=== PATIENT | female | born 1945 | race Caucasian/White ===

== ENCOUNTER 2019-09-21 11:55 | Inpatient (IN) | payer MEDICARE, BC, SELFPAY ==
[2019-09-21] VITALS (18 sets, daily range): BP systolic 110–147; BP diastolic 44–72; PULSE 80–86; RESP 14–25; TEMP 36.3–37.6; O2SAT 96–100; BMI 23.1
[2019-09-21 12:31] LABS: Basophils Percent Auto 0.2 % (0.2-1.2); Eosinophils Absolute Auto 0.2 K/mm3 (0-0.3); Eosinophils Percent Auto 3.1 % (0-4.4); Immature Granulocyte Absolute 0.03 K/mm3 (0.00-0.031); Immature Granulocyte Percent A 0.5 % (0-0.5); Lymphocytes Absolute Auto 0.88 K/mm3 (0.9-3.2); Lymphocytes Percent Auto 15.3 % (18.3-44.2); Mean Corpuscular Hemoglobin 31.6 pg (26-34); Mean Platelet Volume 10.4 fl (7.4-10.4); Monocytes Absolute Auto 0.5 K/mm3 (0.1-0.6); Monocytes Percent Auto 8.5 % (2.6-8.5); Neutrophils Absolute Auto 4.2 K/mm3 (1.3-6.7); Neutrophils Percent Auto 72.4 % (45.5-73.1); Platelet Count Result 272 k/mm3 (150-375); Red Blood Count 1.33 M/mm3 (4.2-5.4); Red Cell Distribution Width 15.9 % (11.5-14.5); White Blood Count 5.7 K/mm3 (4.5-10.0)
[2019-09-21 12:39] LABS: Hematocrit 14.5 % (37.0-47.0); Hemoglobin 4.2 g/dL (12.0-15.0)
[2019-09-21 12:40] LABS: Hypochromasia 2+ (NORMAL); Ovalocytes 1+ (NORMAL); Platelet Estimate Adequate (Adequate); Poikilocytosis 1+ (NORMAL)
[2019-09-21 12:43] LABS: INR 1.4; Prothrombin Time 17.1 Seconds (11.1-14.7)
[2019-09-21 12:44] LABS: Partial Thromboplastin Time 29.4 SECONDS (22.3-36.8)
[2019-09-21 12:45] LABS: Alanine Aminotransferase 18 U/L (4-35); Albumin Level 2.9 g/dL (3.5-5.1); Alkaline Phosphatase 115 U/L (38-126); Aspartate Amino Transferase 23 U/L (14-36); Bilirubin,Total 0.3 mg/dL (0.2-1.3); Blood Urea Nitrogen 13 mg/dL (7-17); Calcium 8.5 mg/dL (8.4-10.2); Carbon Dioxide 16 mmol/L (22-30); Chloride 111 mmol/L (98-107); Estimated Glomerular Filt Rate 40; Glucose 100 mg/dL (65-105); Sodium 140 mmol/L (137-145)
--- NOTE | 2019-09-21 12:46 | ED.RECABL ---
HPI - Recheck/Abnormal Lab/Rx General Chief Complaint: Recheck/Abnormal Lab/Rx Stated Complaint: low H&H Time Seen by Provider: 09/21/19 12:41 Source: patient and RN notes reviewed Mode of arrival: ambulatory Limitations: no limitations History of Present Illness HPI narrative: Pt is a 73 y/o female who presents to the ED with c/o abnormal labs. She notes that she has had intermittent GI bleeding for quite some time, stating that she passes bright red blood in her stool for 2 weeks straight roughly once per month. Pt notes that she hasn't had any pain with defecation. She also reports recent dizziness, fatigue, and intermittent SOB. Pt notes that she was seen by her PCP for her symptoms, and states that she was called this afternoon and advised her hemoglobin was significantly low. According to Dr. Allison's records, her hemoglobin was 4.4. Pt denies any recent syncope, CP, or headache. She notes that she is currently taking Eliquis. MD complaint: abnormal lab Initial visit (ago): day(s) (1) Initial visit for: other (fatigue) Returns today for: called because of abnormal lab/test Description of abnormal result: Hemoglobin of 4.4. Context: called for abnormal lab result Associated symptoms: shortness of breath and other (fatigue; dizziness; rectal bleeding) Related Data Home Medications Medication Instructions Recorded Confirmed azathioprine 100 mg tablet 100 mg PO DAILY 06/26/19 cyanocobalamin (vitamin B-12) 100 mcg SUB-Q MONTHLY 06/26/19 1,000 mcg/mL injection kit ergocalciferol (vitamin D2) 1,250 50,000 unit PO WEEKLY 06/26/19 mcg (50,000 unit) capsule ezetimibe 10 mg tablet 10 mg PO DAILY 06/26/19 folic acid 800 mcg tablet 0.8 mg PO DAILY 06/26/19 magnesium oxide 400 mg (241.3 mg 400 mg PO DAILY 06/26/19 magnesium) tablet potassium chloride 20 mEq 20 meq PO DAILY 06/26/19 tablet,extended release apixaban 2.5 mg tablet 5 mg PO BID tablet 08/21/19 Allergies Allergy/AdvReac Type Severity Reaction Status Date / Time NAPROXEN SODIUM Allergy Intermediate Rash Uncoded 07/31/13 12:56 Review of Systems Review of Systems: Narrative: CONSTITUTIONAL: Denies fever, chills, or sweats. Reports fatigue. ENT: Denies rhinorrhea, congestion, sore throat, or otalgia. CARDIOVASCULAR: Denies chest pain, palpitations, or edema. RESPIRATORY: Denies cough. Reports dyspnea. GASTROINTESTINAL: Denies abdominal pain, nausea, vomiting, or diarrhea. Reports rectal bleeding. MUSCULOSKELETAL: Denies back pain, joint pain, or myalgia. NEUROLOGIC: Denies headache, numbness, weakness, or syncope. Reports dizziness. 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 Allison. Exam Narrative: Exam Narrative: GENERAL: Well-appearing, well-nourished, and in no acute distress. HEAD: Normocephalic, atraumatic. EYES: PERRLA and EOMI. ENT: Nares clear, no rhinorrhea or epistaxis. Mucous membranes moist. NECK: Supple. CHEST: Clear to auscultation. No respiratory distress. HEART: Reg
[2019-09-21 13:59] LABS: Basophils Percent Auto 0.2 % (0.2-1.2); Eosinophils Absolute Auto 0.2 K/mm3 (0-0.3); Eosinophils Percent Auto 2.8 % (0-4.4); Immature Granulocyte Absolute 0.02 K/mm3 (0.00-0.031); Immature Granulocyte Percent A 0.4 % (0-0.5); Immature Reticulocyte Fraction 20.2 % (3.0-15.9); Lymphocytes Absolute Auto 0.87 K/mm3 (0.9-3.2); Lymphocytes Percent Auto 16.3 % (18.3-44.2); Mean Corpuscular HGB Conc 28.7 g/dl (32-36); Mean Corpuscular Hemoglobin 31.1 pg (26-34); Mean Corpuscular Volume 108.4 fl (80-100); Mean Platelet Volume 9.7 fl (7.4-10.4); Monocytes Absolute Auto 0.4 K/mm3 (0.1-0.6); Monocytes Percent Auto 8.1 % (2.6-8.5); Neutrophils Absolute Auto 3.9 K/mm3 (1.3-6.7); Neutrophils Percent Auto 72.2 % (45.5-73.1); Platelet Count Result 236 k/mm3 (150-375); Red Blood Count 1.19 M/mm3 (4.2-5.4); Red Cell Distribution Width 15.9 % (11.5-14.5); Reticulocyte Hemoglobin Conten 23.3 pg (28.2-35.7); Reticulocyte Percent 2.99 % (0.7-4.3); Reticulocytes Absolute 0.04 B/L (32.2-175.7); White Blood Count 5.3 K/mm3 (4.5-10.0)
[2019-09-21 14:00] LABS: Hemoglobin 3.7 g/dL (12.0-15.0)
[2019-09-21 14:01] LABS: Hematocrit 12.9 % (37.0-47.0)
[2019-09-21 14:14] LABS: Lactate Dehydrogenase 337 U/L (313-618)
[2019-09-21] MEDS: TUBING, BLOOD PLUM PUMP TUBING 1 EACH XX (14:34)
--- NOTE | 2019-09-21 15:24 | PM.IMHP ---
H&P: HPI History of Present Illness Chief complaint: Symptomatic anemia Narrative: Eliana Robert is a 73 year old female who has history of Crohn's disease. The patient sees a GI specialist elsewhere. The patient stated about 2 weeks ago she had bright red rectal bleeding. She said this is common for her it lasted for about 2 week she stated stated the patient stated she has hemorrhoids as well. Patient stated she had her last colonoscopy about 6 months ago. The patient states that she gets colonoscopies twice a year due to her Crohn's and all of the polyps that she has had. A strong family history of colon cancer as well. Patient stated that they did remove polyps with her last colonoscopy. Patient stated she noticed streaks of blood whenever she would wipe today. The patient went to her primary care doctor yesterday because she feels very weak and can only walk about 10 ft before she feels tired and needs to rest. She denies any shortness of breath. She states that she does have a history of having vertigo and has been seen by ENT in the past. Her primary care office called today and stated that her hemoglobin from yesterday was 4.4. The patient has been taking Eliquis for her atrial fibrillation. Patient denies any palpitations at this time or chest pain. Hemoglobin that was drawn here was 3.7 and hematocrit 12.9. Her blood transfusion has been started. GI and hematology have been consulted per ED physician. Those have been ordered under consult. Date of service is 09/21/2019. Review of Systems Review of Systems: Narrative: Fatigue with minimal exertion. No fever but she has chills. She stated that she always feels cold. This is not new. She states that the GI bleed is not thing out of the ordinary for her. She often has bloody stools. She sees a specialist for her Crohn's disease. All systems reviewed & are unremarkable except as noted in HPI and below Constitutional: Constitutional: Reports as per HPI and Reports no additional constitutional complaints Eyes: Eyes: Reports as per HPI and Reports no additional eye complaints ENT: Reports system reviewed and no additional complaints, except as documented and Reports Normal hearing present Cardiovascular: Cardiovascular: Reports no additional cardiovascular complaints Respiratory: Respiratory: Reports no additional respiratory complaints and Reports no additional respiratory complaints Gastrointestinal: Gastrointestinal: Reports as per HPI, Reports no additional gastrointestinal complaints, Reports hematochezia and Reports GI cramping Comments: Approximately 2 weeks ago and it lasted 2 weeks. Patient has blood streaked stools and blood when she wipes. Musculoskeletal: Musculoskeletal: Reports no additional musculoskeletal complaints Integumentary/Breasts: Skin/Breast: Reports system reviewed and no additional complaints, except as docu and Reports as per HPI Neurologic: Reports system reviewed and no additional complaints, except as documented, Reports as per HPI and Reports Normal hearing present Psychiatric: Psychiatric: Reports no additional psychiatric complaints and Reports as per HPI Endocrine: Endocrine: Reports no additional endocrine complaints Hematologic/Lymphatic: Hematologic/Lymphatic: Reports no additional hematologic/lymphatic complaints Allergic/Immunologic: Allergic/Immunologic: Reports no additional allergic/immunologic complaints [facility] Past Medical History Medical History (Updated 09/21/19 @ 15:47 by Tiffanie Ramirez NP) Arthritis Atrial fibrillation Bilateral lower extremity edema Crohn's colitis Crohn's disease of both small and large intestine with other complication DDD (degenerative disc disease) Depression Essential hypertension Fatigue GERD (gastroesophageal reflux disease) Hemorrhoids Removed years ago Kidney stones Extracted Pacemaker 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
--- NOTE | 2019-09-21 16:59 | WPDGICN ---
Assessment and Plan Additional Plan This is a 73-year-old white female patient I am asked to see for profound anemia. Patient presented to primary care office today laboratory work revealed profound anemia she was sent to the emergency room for admission to the hospital. Patient's past history is significant for Crohn's disease. In the past she had 3 surgeries for this which left her with a relatively short small intestine. She had resection of the terminal ileum as well. Current we she has frequent loose stools on this basis. Additionally she has been found to have multiple sessile colon polyps requiring frequent colonoscopies and polypectomies. Typically followed at [facility]. Her last colonoscopy was April 06. Once again she had multiple colon polyps removed. She is felt to have sessile polyposis syndrome .patient have also has a history of sick sinus syndrome .she has a pacemaker that was placed. She a has atrial fibrillation and is on chronic Eliquis anticoagulation. Patient reports frequent episodes of bright red blood per rectum. Often lasting for several weeks at a time period she denies any significant pain. She does not give this much regard typically. Her daughters were on aware of this recent bleeding. Family and patient reports that she has become progressively weak over recent months. Has suffered with general malaise. She is uncertain when her last blood count was checked. Past medical history as stated is significant for Crohn's disease with significant small bowel resection. Sessile polyposis syndrome. Sick sinus syndrome status post pacemaker. Atrial fibrillation on Eliquis anticoagulation. Hypertension. GE reflux. Kidney stones. Arthritis. B12 deficiency secondary to terminal ileal resection. Family history is noncontributory. Current medications include Eliquis. Imuran 100 mg p.o. daily. B12 injections monthly. Magnesium oxide, metoprolol, potassium, exetimibe, escitalopram, Patient reports an intolerance to Naprosyn the gives or rash. Physical exam reveals her to be alert. Comfortable at rest. HEENT exam unremarkable. She is anicteric. Lungs are clear to auscultation and percussion. Heart is without murmur or extra sounds. Abdominal exam bowel sounds are present soft nontender with no organomegaly. Rectal reveals heme-positive stools. Laboratory work revealed CBC white count of 5.3, hemoglobin 3.7, hematocrit 12.9, MCV 108 protime is 17.1, INR 1.4, be Nik of 13, creatinine 1.3, albumin 2.9. Impression 1. Profound macrocytic anemia. Patient is at risk of B12 deficiency given her previous terminal ileal resection. Macrocytosis suggest this as a possibility. Plan is to check iron folate B12 levels. Patient appears to have had significant bleeding while on Eliquis. In this undoubtedly contributes to anemia as well. Plan to transfuse to a stable hemoglobin. Hold Eliquis for now. Consider follow-up colonoscopy before restarting Eliquis. She wishes to have this done by her primary electrical maintenance worker in [place]. 2. Sessile polyposis syndrome. Patient has had multiple colonoscopies with multiple polyp pectin knees. Most recent colonoscopy 04/06/2019. The report states she has had 41 polyps removed since 2017. 3. Crohn's disease. Patient is status post 3 surgeries. She is reported to have a relatively short intestine. Frequent diarrhea on this basis. She likely has B12 deficiency given terminal ileal resection. 4. Sick sinus syndrome. Status post pacemaker. 5. Atrial fibrillation. 6. Chronic Eliquis anticoagulation. Eliquis anticoagulation will need to be held until it is determined safe to resume anticoagulation. Plan is to hold anticoagulation and transfuse to stable hemoglobin. Consider follow-up colonoscopy before restarting anticoagulation. Folate B12 and iron levels will be evaluated given her macrocytosis and profound anemia. . GI Consult Note Consult date/time: 09/21/19
[2019-09-21] MEDS: SODIUM CHLORIDE 0.9% IV 250 ML 30 ML IV CONT (17:08)
--- NOTE | 2019-09-21 18:10 | PC.NURSE ---
Patient arrived on unit floor from ER @1500.
[2019-09-21] MEDS: NICOTINE (*PBKC) 14 MG PATCH 1 PATCH TRANSDERM (20:27)
--- NOTE | 2019-09-21 20:38 | PC.NURSE ---
Patient unable to confirm home medication. Patient only states knowing that she takes Eliquis but does not know the dosage. Patient's daughter is said to bring in the medication list tomorrow morning. The night nurse and charge nurse notified of this situation.
[2019-09-21 20:56] LABS: Hematocrit 21.1 % (37.0-47.0)
[2019-09-21 21:09] LABS: Hemoglobin 6.5 g/dL (12.0-15.0)
--- NOTE | 2019-09-21 21:55 | PC.NURSE ---
Blood bank notified we only need two more units of PRBC for this patient.
[2019-09-21 22:15] LABS: Folic Acid 17.7 ng/mL (2.76->20)
[2019-09-21 22:55] LABS: Iron 63 ug/dL (37-170)
[2019-09-21 23:06] LABS: Percent Iron Saturation 16 % (20-50)
[2019-09-21 23:31] LABS: Ferritin 7.02 ng/mL (11.1-264)
[2019-09-22] VITALS (14 sets, daily range): BP systolic 108–142; BP diastolic 58–74; PULSE 80–84; RESP 14–18; TEMP 36.7–37.3; O2SAT 96–100
[2019-09-22] MEDS: SODIUM CHLORIDE 0.9% IV 250 ML 30 ML IV CONT ×2 (00:31→04:43)
[2019-09-22 06:07] LABS: Basophils Absolute Auto 0.1 K/mm3 (0.0-0.1); Basophils Percent Auto 0.9 % (0.2-1.2); Eosinophils Absolute Auto 0.2 K/mm3 (0-0.3); Eosinophils Percent Auto 2.7 % (0-4.4); Hematocrit 25.2 % (37.0-47.0); Hemoglobin 7.9 g/dL (12.0-15.0); Immature Granulocyte Absolute 0.02 K/mm3 (0.00-0.031); Immature Granulocyte Percent A 0.4 % (0-0.5); Lymphocytes Absolute Auto 0.82 K/mm3 (0.9-3.2); Lymphocytes Percent Auto 14.5 % (18.3-44.2); Mean Corpuscular HGB Conc 31.3 g/dl (32-36); Mean Corpuscular Hemoglobin 29.9 pg (26-34); Mean Corpuscular Volume 95.5 fl (80-100); Mean Platelet Volume 10.2 fl (7.4-10.4); Monocytes Absolute Auto 0.6 K/mm3 (0.1-0.6); Monocytes Percent Auto 10.1 % (2.6-8.5); Neutrophils Absolute Auto 4.1 K/mm3 (1.3-6.7); Neutrophils Percent Auto 71.4 % (45.5-73.1); Nucleated Red Blood Cells Perc 0.4 % (0.0-0.2); Platelet Count Result 194 k/mm3 (150-375); Red Blood Count 2.64 M/mm3 (4.2-5.4); Red Cell Distribution Width 16.9 % (11.5-14.5); White Blood Count 5.7 K/mm3 (4.5-10.0)
[2019-09-22 06:27] LABS: Aspartate Amino Transferase 25 U/L (14-36); Bilirubin,Total 0.9 mg/dL (0.2-1.3); Blood Urea Nitrogen 13 mg/dL (7-17); Calcium 7.9 mg/dL (8.4-10.2); Carbon Dioxide 18 mmol/L (22-30); Chloride 112 mmol/L (98-107); Estimated CRCL calculation 36 ml/min; Estimated Glomerular Filt Rate 49; Glucose 78 mg/dL (65-105); Magnesium 1.5 mg/dL (1.6-2.3); Potassium 3.6 mmol/L (3.4-5.0); Sodium 139 mmol/L (137-145)
[2019-09-22 06:28] LABS: Alanine Aminotransferase 17 U/L (4-35); Albumin Level 2.5 g/dL (3.5-5.1); Alkaline Phosphatase 97 U/L (38-126)
[2019-09-22 07:58] LABS: Free T4 Free Thyroxine Reflex 0.87 ng/dL (0.78-2.19)
--- NOTE | 2019-09-22 09:11 | WPDGIPROGNO ---
Progress Note: A&P Additional Plan Patient comfortable this morning. No signs of GI blood loss. She denies abdominal pain. Physical exam patient is alert. Comfortable at rest. Vital signs stable. Lungs are clear. Heart without murmur. Abdomen bowel sounds present soft nontender with no organomegaly Labs revealed WBC 5.7, hemoglobin 7.9, hematocrit 25.2, MCV 95. After recent transfusion. Iron deficient indices with iron studies. B12 level adequate. Impression 1. Profound iron deficiency anemia. I suspect this is related to chronic GI blood loss. 2. Sessile polyposis syndrome. Frequent recurrent colon polyps previous identified. Followed at [facility]. 3. History of Crohn's disease. Status post several small bowel resections. May account for B12 deficiency. And loose stools. 4. Atrial fibrillation. Patient on chronic anticoagulation. Plan is to hold anticoagulation until it is determined safe to restart. She probably should have follow-up colonoscopy. Given her history of frequent polyps and Crohn's disease. She also has a history of intermittent bloody stools. Plan to prep for colonoscopy. Patient prefers to have this done at [facility] with her established scientific linguist Dr. Alberts. This seems reasonable to me at this time. No need for emergent endoscopy. However anticoagulation should be held until this is accomplished. Plan is for follow-up at [facility] shortly after discharge here. Hold anticoagulation until that time. Continue to monitor CBC more frequently. Subjective Date/time seen: 09/22/19 09:11 Objective Data Vital Signs Vital Signs: Vital Signs - 24 hr 09/21/19 12:18 09/21/19 12:27 09/21/19 13:17 Temperature 36.7 C Pulse Rate 81 86 80 Respiratory Rate 19 23 H 18 Blood Pressure 113/44 L 127/51 L 125/64 Pulse Oximetry 100 100 100 09/21/19 14:26 09/21/19 14:30 09/21/19 14:41 Temperature 36.8 C 36.8 C 36.7 C Pulse Rate 80 80 80 Respiratory Rate 14 17 18 Blood Pressure 124/64 118/61 118/61 Pulse Oximetry 99 100 98 09/21/19 15:12 09/21/19 16:00 09/21/19 16:34 Temperature 36.7 C 36.5 C Pulse Rate 85 80 Respiratory Rate 18 18 Blood Pressure 124/54 L 147/71 H 120/54 L Pulse Oximetry 100 100 09/21/19 16:46 09/21/19 17:07 09/21/19 17:10 Temperature 36.3 C L 36.6 C 36.5 C Pulse Rate 80 80 80 Respiratory Rate 18 18 18 Blood Pressure 120/54 L 132/66 147/71 H Pulse Oximetry 100 100 100 09/21/19 18:00 09/21/19 19:10 09/21/19 22:00 Temperature 36.5 C 37.2 C 37.6 C H Pulse Rate 80 80 84 Respiratory Rate 18 18 18 Blood Pressure 136/64 112/54 L 135/61 Pulse Oximetry 100 100 100 09/21/19 23:14 09/21/19 23:16 09/21/19 23:30 Temperature 37.0 C 37.2 C 37.1 C Pulse Rate 80 80 81 Respiratory Rate 16 16 16 Blood Pressure 110/65 129/72 124/72 Pulse Oximetry 96 99 99 09/22/19 00:30 09/22/19 01:30 09/22/19 01:40 Temperature 37.2 C 37.2 C 37.1 C Pulse Rate 81 84 83 Respiratory Rate 16 16 16 Blood Pressure 119/69 108/58 L 113/64 Pulse Oximetry 98 97 98 09/22/19 02:09 09/22/19 02:11 09/22/19 02:25 Temperature 37.3 C 37.1 C 37.0 C Pulse Rate 80 80 80 Respiratory Rate 16 16 16 Blood Pressure 113/64 113/65 112/68 Pulse Oximetry 98 97 96 09/22/19 03:25 09/22/19 04:25 09/22/19 04:38 Temperature 37.2 C 37.0 C 37.3 C Pulse Rate 82 81 80 Respiratory Rate 18 16 16 Blood Pressure 108/70 128/74 118/73 Pulse Oximetry 96 99 99 09/22/19 06:00 Temperature 36.8 C Pulse Rate 84 Respiratory Rate 18 Blood Pressure 112/71 Pulse Oximetry 99 Intake/Output Intake/Output: Intake & Output 09/19/19 09/20/19 09/21/19 09/22/19 23:59 23:59 23:59 23:59 Intake Total 1650 1240 Output Total 600 400 Balance 1050 840 Meds/Results Medications: Active Medications Generic Name Dose Route Start Last Admin Trade Name Freq PRN Reason Stop Dose Admin Chlordiazepoxide HCl 5 mg 09/21/19 16:30 Librium Po PO Q6H PRN Anxiety Folic Acid 1 mg 09/22/19 09:00 Folic Acid
[2019-09-22 09:17] LABS: Total Triiodothyronine (T3) 0.87 NG/ML (0.97-1.69)
--- NOTE | 2019-09-22 10:41 | PM.IMPN ---
Progress Note: A&P Assessment and Plan (1) GI bleed: Qualifiers: GI bleed type/associated pathology: anorectal hemorrhage Qualified Code(s): K62.5 - Hemorrhage of anus and rectum Code(s): K92.2 - Gastrointestinal hemorrhage, unspecified Status: Acute Assessment and Plan: Etiology unclear. Small amount of blood this morning Patient wishes follow-up colonoscopy with her regular calender runner She can likely go home tomorrow for outpatient follow-up if her hemoglobin remains stable and she has no further bleeding (2) Symptomatic anemia: Code(s): D64.9 - Anemia, unspecified Status: Acute Assessment and Plan: Due to acute on chronic GI bleed blood loss 09/22 hemoglobin 7.9 after transfusion (3) Crohn's colitis: Qualifiers: Digestive disease complication type: with rectal bleeding Qualified Code(s): K50.111 - Crohn's disease of large intestine with rectal bleeding Code(s): K50.10 - Crohn's disease of large intestine without complications Status: Chronic Assessment and Plan: Unclear whether this is the etiology of her bleeding (4) Atrial fibrillation: Qualifiers: Atrial fibrillation type: paroxysmal Qualified Code(s): I48.0 - Paroxysmal atrial fibrillation Code(s): I48.91 - Unspecified atrial fibrillation Status: Chronic Assessment and Plan: Hold Eliquis until follow-up GI evaluation, likely to include a colonoscopy Discussed with patient and daughter at bedside balancing the risk of stroke versus the risk of severe bleeding Subjective Date/time seen: 09/22/19 10:41 Interval history: Small amount of bright red blood in stool this morning. No chest pain or abdominal pain. Does have chronic intermittent palpitations that she feels ?in her spine ?. Very infrequent. No other associated symptoms. Curiously her daughter has similar symptoms. Denied shortness of breath or dizziness. Review of Systems Review of Systems: All systems reviewed & are unremarkable except as noted in HPI and below Exam Narrative: Exam Narrative: HEENT: EOMI, PERRL, pharyngeal mucosa pink and intact NECK: No JVD CHEST: Clear to auscultation. Normal effort. HEART: NL S1/S2, regular, 3/6 apical systolic murmur ABDOMEN: BS+, soft, nontender, no mass, no bruits EXTREMITIES: No cyanosis, edema, or clubbing NEUROLOGIC: CN intact and symmetric to inspection. MUSCULOSKELETAL: Tone and strength symmetric. PSYCH: Alert. Oriented to person, place, and time. Objective Data Vital Signs Vital Signs: Vital Signs - 24 hr 09/21/19 12:18 09/21/19 12:27 09/21/19 13:17 Temperature 98.1 F Pulse Rate 81 86 80 Respiratory Rate 19 23 H 18 Blood Pressure 113/44 L 127/51 L 125/64 Pulse Oximetry 100 100 100 09/21/19 14:26 09/21/19 14:30 09/21/19 14:41 Temperature 98.2 F 98.3 F 98.1 F Pulse Rate 80 80 80 Respiratory Rate 14 17 18 Blood Pressure 124/64 118/61 118/61 Pulse Oximetry 99 100 98 09/21/19 15:12 09/21/19 16:00 09/21/19 16:34 Temperature 98.1 F 97.7 F Pulse Rate 85 80 Respiratory Rate 18 18 Blood Pressure 124/54 L 147/71 H 120/54 L Pulse Oximetry 100 100 09/21/19 16:46 09/21/19 17:07 09/21/19 17:10 Temperature 97.4 F L 97.9 F 97.7 F Pulse Rate 80 80 80 Respiratory Rate 18 18 18 Blood Pressure 120/54 L 132/66 147/71 H Pulse Oximetry 100 100 100 09/21/19 18:00 09/21/19 19:10 09/21/19 22:00 Temperature 97.7 F 98.9 F 99.7 F H Pulse Rate 80 80 84 Respiratory Rate 18 18 18 Blood Pressure 136/64 112/54 L 135/61 Pulse Oximetry 100 100 100 09/21/19 23:14 09/21/19 23:16 09/21/19 23:30 Temperature 98.6 F 98.9 F 98.7 F Pulse Rate 80 80 81 Respiratory Rate 16 16 16 Blood Pressure 110/65 129/72 124/72 Pulse Oximetry 96 99 99 09/22/19 00:30 09/22/19 01:30 09/22/19 01:40 Temperature 99.0 F 99.0 F 98.7 F Pulse Rate 81 84 83 Respiratory Rate 16 16 16 Blood Pressure 119/69 108/58 L 113/64 Pulse Oximet
[2019-09-22] MEDS: THIAMINE HCL 100 MG TABLET PO (12:01)
[2019-09-22] MEDS: FOLIC ACID 1 MG TABLET PO (12:01)
[2019-09-22 12:45] LABS: IFOB Positive Control Positive; Immunochemical Fecal Occult Bl Positive (N)
[2019-09-22 17:25] LABS: Hematocrit 26.7 % (37.0-47.0); Hemoglobin 8.5 g/dL (12.0-15.0)
[2019-09-22] MEDS: NICOTINE (*PBKC) 14 MG PATCH 1 PATCH TRANSDERM (20:53)
[2019-09-23] VITALS (7 sets, daily range): BP systolic 115–142; BP diastolic 56–71; PULSE 76–86; RESP 16–18; TEMP 36.9–37.4; O2SAT 97–99
[2019-09-23 06:24] LABS: Hemoglobin 8.2 g/dL (12.0-15.0); Mean Corpuscular HGB Conc 31.5 g/dl (32-36); Mean Corpuscular Hemoglobin 29.7 pg (26-34); Mean Corpuscular Volume 94.2 fl (80-100); Mean Platelet Volume 10.2 fl (7.4-10.4); Platelet Count Result 202 k/mm3 (150-375); Red Blood Count 2.76 M/mm3 (4.2-5.4); Red Cell Distribution Width 17.4 % (11.5-14.5); White Blood Count 6.4 K/mm3 (4.5-10.0)
[2019-09-23 06:38] LABS: Blood Urea Nitrogen 13 mg/dL (7-17); Carbon Dioxide 19 mmol/L (22-30); Chloride 111 mmol/L (98-107); Estimated CRCL calculation 40 ml/min; Estimated Glomerular Filt Rate 54; Glucose 73 mg/dL (65-105); Potassium 3.4 mmol/L (3.4-5.0); Sodium 138 mmol/L (137-145)
[2019-09-23] MEDS: AZATHIOPRINE 50 MG TABLET 100 MG PO (08:18)
[2019-09-23] MEDS: MAGNESIUM OXIDE 400 MG TABLET PO (08:19)
[2019-09-23] MEDS: ESCITALOPRAM OXALATE 5 MG TABLET PO (08:19)
[2019-09-23] MEDS: FOLIC ACID 1 MG TABLET PO (08:19)
[2019-09-23] MEDS: POTASSIUM CHLORIDE 20 MEQ TABLET.ER PO (08:20)
[2019-09-23] MEDS: THIAMINE HCL 100 MG TABLET PO (08:20)
--- NOTE | 2019-09-23 14:59 | PM.IMPN ---
Progress Note: A&P Assessment and Plan (1) GI bleed: Qualifiers: GI bleed type/associated pathology: anorectal hemorrhage Qualified Code(s): K62.5 - Hemorrhage of anus and rectum Code(s): K92.2 - Gastrointestinal hemorrhage, unspecified Status: Acute Assessment and Plan: Etiology is unclear but pt reports intermittent episodes of bright red blood per rectum approximately 2-3 weeks ago that lasted 2 weeks. She has a hx of Chron's with 3 small bowel resections. She was also diagnosed with sessile polyposis syndrome and has had 41 polyps removed since 2017. She is established with Dr. Alberts, take out waiter/waitress, from [place]. She reports that she had a small amount of bright red blood in her stool today. Hb is stable today at 8.4 s/p 4 units PRBC yesterday. She remains hemodynamically stable. Hb at admission was 4.2 and dropped to 3.7 prior to transfusion. The pt has a hx of atrial fibrillation on eliquis 5mg BID. Eliquis is being held at this time. She expressed concern that she would be unable to get an appt for a colonoscopy outpatient with Dr. Alberts within the next week. I spoke with Dr. Ayala, industrial relations commissioner GI for the weekend, who is agreeable to perform the colonoscopy Wednesday. -CLD starting tomorrow AM -Pt will need bowel prep tomorrow -Continue to monitor H & H (2) Symptomatic anemia: Code(s): D64.9 - Anemia, unspecified Status: Acute Assessment and Plan: Pt is s/p 4 units PRBC yesterday. Hb is stable today at 8.4. Suspect acute blood loss on chronic anemia. Vitamin B12 and folate levels were checked and WNL. She is on supplementation for both due to terminal ileum resection. MCV was 109 at admission. -Continue to monitor H & H -Evaluate for underlying source of bleed (3) Crohn's colitis: Qualifiers: Digestive disease complication type: with rectal bleeding Qualified Code(s): K50.111 - Crohn's disease of large intestine with rectal bleeding Code(s): K50.10 - Crohn's disease of large intestine without complications Status: Chronic Assessment and Plan: Pt is on azathioprine 100mg PO daily. It is unclear if her Chron's is the source of bleeding. -Will continue azathioprine (4) Atrial fibrillation: Qualifiers: Atrial fibrillation type: paroxysmal Qualified Code(s): I48.0 - Paroxysmal atrial fibrillation Code(s): I48.91 - Unspecified atrial fibrillation Status: Chronic Assessment and Plan: The pt reports that she was recently increased to eliquis 5mg BID in June 2019. Eliquis is being held currently due to active GI bleed. I discussed the risk for stroke with the pt and her daughter and they understand that it must be held due to high risk for severe blood loss at this time and are agreeable. -Will await GI recommendations following colonoscopy regarding eliquis Additional Plan DVT Prophylaxis: Mechanical ordered. Pharmacologic contraindicated due to active GI bleed. Time Spent With Patient Time with patient: 15 - 25 minutes Subjective Date/time seen: 09/23/19 14:59 Interval history: The pt is seen and examined while lying in bed. She reports a small amount of bright red blood in the stool today. She reports that her weakness and fatigue improved significantly following transfusion. She received 4 units PRBC yesterday. She denies shortness of breath and chest pain. She denies abdominal pain. She denies nausea and vomiting. She is tolerating PO intake well. Hb is stable today at 8.2. Hct is 26. Review of Systems Review of Systems: Narrative: Constitutional: Denies fever, chills, and appetite change. Reports weakness and fatigue have improved today. Eyes: Denies vision change. No additional eye complaints. ENT: Denies change in hearing, nasal congestion, dysphagia, odynophagia, sore throat. Cardiovascular: Denies palpitations and chest pain. Respiratory: Denies cough and shortness of breath. Celeste
[2019-09-23 15:50] LABS: Hematocrit 26.8 % (37.0-47.0); Hemoglobin 8.4 g/dL (12.0-15.0)
[2019-09-23] MEDS: EZETIMIBE 10 MG TABLET PO (20:28)
[2019-09-23] MEDS: METOPROLOL SUCCINATE EXT REL 50 MG TABCR PO (20:29)
[2019-09-24 06:00] VITALS: BP 122/57; PULSE 83; RESP 18; TEMP 37.5; O2SAT 99
[2019-09-24 07:01] LABS: Hematocrit 26.1 % (37.0-47.0); Hemoglobin 8.2 g/dL (12.0-15.0); Mean Corpuscular HGB Conc 31.4 g/dl (32-36); Mean Corpuscular Hemoglobin 29.6 pg (26-34); Mean Corpuscular Volume 94.2 fl (80-100); Platelet Count Result 197 k/mm3 (150-375); Red Blood Count 2.77 M/mm3 (4.2-5.4); Red Cell Distribution Width 17.1 % (11.5-14.5); White Blood Count 6.5 K/mm3 (4.5-10.0)
[2019-09-24 07:14] LABS: Blood Urea Nitrogen 9 mg/dL (7-17); Calcium 8.1 mg/dL (8.4-10.2); Carbon Dioxide 20 mmol/L (22-30); Chloride 109 mmol/L (98-107); Estimated CRCL calculation 40 ml/min; Estimated Glomerular Filt Rate 54; Glucose 72 mg/dL (65-105); Magnesium 1.5 mg/dL (1.6-2.3); Potassium 3.5 mmol/L (3.4-5.0); Sodium 138 mmol/L (137-145)
[2019-09-24] MEDS: MAGNESIUM OXIDE 400 MG TABLET PO (08:10)
[2019-09-24] MEDS: FOLIC ACID 1 MG TABLET PO (08:10)
[2019-09-24] MEDS: AZATHIOPRINE 50 MG TABLET 100 MG PO (08:10)
[2019-09-24] MEDS: ESCITALOPRAM OXALATE 5 MG TABLET PO (08:11)
[2019-09-24] MEDS: THIAMINE HCL 100 MG TABLET PO (08:11)
[2019-09-24] MEDS: POTASSIUM CHLORIDE 20 MEQ TABLET.ER PO (08:11)
--- NOTE | 2019-09-24 10:14 | WPDGIPROGNO ---
Progress Note: A&P Assessment and Plan (1) GI bleed: Qualifiers: GI bleed type/associated pathology: anorectal hemorrhage Qualified Code(s): K62.5 - Hemorrhage of anus and rectum Code(s): K92.2 - Gastrointestinal hemorrhage, unspecified Status: Acute Assessment and Plan: hb stable but she required blood transfusion on admission. Only minimal bleeding now, her eliquis is on hold. Family and patient agreeable to stay here for colonoscopy rather than get it as outpatient with her GI doctor at [facility]. (2) Symptomatic anemia: Code(s): D64.9 - Anemia, unspecified Status: Acute Assessment and Plan: monitor hb (3) Rectal bleeding: Code(s): K62.5 - Hemorrhage of anus and rectum Status: Acute Assessment and Plan: Dr Padilla will be here tomorrow and proceed with colonoscopy in the morning, will give bowel prep today. (4) Anticoagulant long-term use: Code(s): Z79.01 - long-term (current) use of anticoagulants Status: Acute Assessment and Plan: eliquis on hold (5) Serrated polyposis syndrome: Code(s): D12.6 - Benign neoplasm of colon, unspecified Status: Acute (6) Crohn disease: Qualifiers: Gastrointestinal tract location: unspecified location Digestive disease complication type: unspecified complication Qualified Code(s): K50.919 - Crohn's disease, unspecified, with unspecified complications Code(s): K50.90 - Crohn's disease, unspecified, without complications Status: Acute Assessment and Plan: previous SB surgery, she is established with GI at [facility]. Subjective Date/time seen: 09/24/19 10:14 Interval history: she is comfortable, earlier this morning she noted only small amount of rectal bleeding after passing gas. No abdominal pain, normal appetite. Review of Systems Review of Systems: All systems reviewed & are unremarkable except as noted in HPI and below Exam Const: General: comfortable and no acute distress HENMT: General nose exam: Normal nares present Eyes: General: appearance normal, both eyes and all related structures Neck: Neck: no JVD Resp: Auscultation: clear to auscultation bilaterally Cardio: Rate: regular rate Rhythm: regular rhythm GI: Inspection: non-distended GI Palp: Yes Soft to palpation and No Tenderness to palpation present (GI) Auscultation: normal bowel sounds Skin: General skin exam: normal color Neuro: General: gait normal Speech: normal speech Extrem: General: normal to inspection Psych: Mental Status: mental status grossly normal Objective Data Vital Signs Vital Signs: Vital Signs - 24 hr 09/23/19 14:00 09/23/19 20:29 09/23/19 20:30 Temperature 99.4 F Pulse Rate 80 86 86 Respiratory Rate 16 Blood Pressure 115/56 L 137/71 Pulse Oximetry 99 09/23/19 22:00 09/24/19 06:00 Temperature 98.9 F 99.5 F Pulse Rate 80 83 Respiratory Rate 18 18 Blood Pressure 117/60 122/57 L Pulse Oximetry 99 99 Intake/Output Intake/Output: Intake & Output 09/21/19 09/22/19 09/23/19 09/24/19 23:59 23:59 23:59 23:59 Intake Total 1650 2640 2600 1680 Output Total 600 700 600 Balance 1050 1940 2000 1680 Meds/Results Medications: Active Medications Generic Name Dose Route Start Last Admin Trade Name Freq PRN Reason Stop Dose Admin Azathioprine 100 mg 09/23/19 09:00 09/24/19 08:10 Imuran PO 100 mg QAM MICHEAL Administration Bisacodyl 20 mg 09/24/19 18:00 Dulcolax Tab PO 09/24/19 18:01 ONCE ONE Chlordiazepoxide HCl 5 mg 09/21/19 16:30 Librium Po PO Q6H PRN Anxiety Cyanocobalamin 100 mcg 10/06/19 09:00 Vitamin B-12 Inj SUB-Q Q29D MICHELA Ezetimibe 10 mg 09/23/19 21:00 09/23/19 20:28 Zetia PO 10 mg HS MICHEAL Administration Ergocalciferol 50,000 unit 09/25/19 09:00 Drisdol PO Mo@0900 MICHEAL Escitalopram Oxalate 5 mg 09/23/19 09:00 09/24/19 08:11 Lexapro PO
--- NOTE | 2019-09-24 11:38 | PM.IMPN ---
Progress Note: A&P Assessment and Plan (1) GI bleed: Qualifiers: GI bleed type/associated pathology: anorectal hemorrhage Qualified Code(s): K62.5 - Hemorrhage of anus and rectum Code(s): K92.2 - Gastrointestinal hemorrhage, unspecified Status: Acute Assessment and Plan: Etiology is unclear but pt reports intermittent episodes of bright red blood per rectum approximately 2-3 weeks ago that lasted 2 weeks. She has a hx of Chron's with 3 small bowel resections. She was also diagnosed with sessile polyposis syndrome and has had 41 polyps removed since 2017. She is established with Dr. Alberts, asphalt blender, from [place]. Hb is stable today at 8.2 s/p 4 units PRBC 2/14. She remains hemodynamically stable. Hb at admission was 4.2 and dropped to 3.7 prior to transfusion. The pt has a hx of atrial fibrillation on eliquis 5mg BID. Eliquis is being held at this time. Colonoscopy was originally planned to be completed outpatient at [facility] but pt expressed concern regarding the ability to get an appointment in a timely manner. I spoke with Dr. Ayala, fermentation engineer GI, who agreed to see the pt. The pt reports another episode of bright red blood per rectum today. Dr. Ayala spoke to Dr. Padilla who has agreed to perform the colonoscopy tomorrow. -Continue to monitor H & H -Continue CLD -Pt will be NPO at midnight for colonoscopy tomorrow -Bowel prep will be completed today (2) Symptomatic anemia: Code(s): D64.9 - Anemia, unspecified Status: Acute Assessment and Plan: Pt is s/p 4 units PRBC 2/14. Hb is stable today at 8.2. Suspect acute blood loss on chronic anemia. Vitamin B12 and folate levels were checked and WNL. She is on supplementation for both due to terminal ileum resection. MCV was 109 at admission. -Continue to monitor H & H -Evaluate for underlying source of bleed (3) Crohn's colitis: Qualifiers: Digestive disease complication type: with rectal bleeding Qualified Code(s): K50.111 - Crohn's disease of large intestine with rectal bleeding Code(s): K50.10 - Crohn's disease of large intestine without complications Status: Chronic Assessment and Plan: Pt is on azathioprine 100mg PO daily. It is unclear if her Chron's is the source of bleeding. -Will continue azathioprine (4) Atrial fibrillation: Qualifiers: Atrial fibrillation type: paroxysmal Qualified Code(s): I48.0 - Paroxysmal atrial fibrillation Code(s): I48.91 - Unspecified atrial fibrillation Status: Chronic Assessment and Plan: The pt reports that she was recently increased to eliquis 5mg BID in June 2019. Eliquis is being held currently due to active GI bleed. I discussed the risk for stroke with the pt and her daughter and they understand that it must be held due to high risk for severe blood loss at this time and are agreeable. -Will await GI recommendations following colonoscopy tomorrow regarding eliquis Additional Plan DVT Prophylaxis: Mechanical ordered. Pharmacologic contraindicated due to active GI bleed. Subjective Date/time seen: 09/24/19 11:38 Interval history: The pt reports an episode of bright red blood per rectum while passing flatus this morning. She feels much better today. She denies STEVE, lightheadedness, and dizziness. Her energy has improved. Hb is stable at 8.2. She reports mild lower rib discomfort but denies chest pain, SOB, and cough. She feels this is due to how she has been sitting in bed. She denies nausea, vomiting, melena, hematemesis, and abdominal pain. Review of Systems Review of Systems: All systems reviewed & are unremarkable except as noted in HPI and below Exam Narrative: Exam Narrative: General: The pt is in good spirits today. She is sitting up in bed. She is in no acute distress. Head: Normocephalic and atraumatic. Eyes: Conjunctivae and lids normal. PEERL. EOMI. Mouth and Throat: Mucous membranes mo
[2019-09-24 14:00] VITALS: BP 115/55; PULSE 81; RESP 18; TEMP 37.2; O2SAT 98
[2019-09-24] MEDS: MAGNESIUM SULF 2 GM/WATER 50ML 2 GM/50 ML BAG IVPB (14:26)
[2019-09-24] MEDS: BISACODYL 5 MG TABLET EC 20 MG PO (18:52)
[2019-09-24] MEDS: PEG (High)/E-LYTE SOLN 4,000 ML BTL 4000 ML PO (18:52)
[2019-09-24 21:09] LABS: Haptoglobin 125 mg/dL (43-212)
[2019-09-24 21:37] VITALS: PULSE 76
[2019-09-24] MEDS: METOPROLOL SUCCINATE EXT REL 50 MG TABCR PO (21:37)
[2019-09-24] MEDS: EZETIMIBE 10 MG TABLET PO (21:37)
[2019-09-24 22:00] VITALS: BP 125/57; PULSE 81; RESP 16; TEMP 36.8; O2SAT 100
[2019-09-25] VITALS (8 sets, daily range): BP systolic 86–138; BP diastolic 47–84; PULSE 80–86; RESP 16–20; TEMP 36.9–37.4; O2SAT 98–100
[2019-09-25 06:22] LABS: Hematocrit 26.9 % (37.0-47.0); Hemoglobin 8.4 g/dL (12.0-15.0); Mean Corpuscular HGB Conc 31.2 g/dl (32-36); Mean Corpuscular Hemoglobin 29.6 pg (26-34); Mean Corpuscular Volume 94.7 fl (80-100); Mean Platelet Volume 10.3 fl (7.4-10.4); Platelet Count Result 207 k/mm3 (150-375); Red Blood Count 2.84 M/mm3 (4.2-5.4); Red Cell Distribution Width 16.6 % (11.5-14.5); White Blood Count 5.9 K/mm3 (4.5-10.0)
[2019-09-25 06:40] LABS: Blood Urea Nitrogen 8 mg/dL (7-17); Calcium 8.1 mg/dL (8.4-10.2); Carbon Dioxide 22 mmol/L (22-30); Chloride 106 mmol/L (98-107); Estimated CRCL calculation 44 ml/min; Estimated Glomerular Filt Rate > 60; Glucose 70 mg/dL (65-105); Magnesium 2.1 mg/dL (1.6-2.3); Phosphorus 3.2 mg/dL (2.5-4.5); Potassium 3.4 mmol/L (3.4-5.0); Sodium 135 mmol/L (137-145)
--- NOTE | 2019-09-25 09:18 | PC.NURSE ---
To GI Lab per [ stretcher], IV [saline locked ]
--- NOTE | 2019-09-25 09:21 | WPDANESEPPF ---
Anes - Initial Pre Proc Eval Procedure: Operation Date: 09/25/19 10:00 Proposed Procedures p Colonoscopy - Akash Padilla MD Date/Time: 09/25/19 09:21 Surgeon: Keshia Dias PA-C Pre Op Diagnosis: Symptomatic anemia Patient Data Age: 73 Gender: F Height: 5 ft 5 in Weight: 63 kg Last Vital Signs Temp 37.2 C 09/25/19 06:33 Pulse 86 09/25/19 06:33 Resp 16 09/25/19 06:33 BP 100/47 L 09/25/19 06:33 Pulse Ox 98 09/25/19 06:33 Allergies Allergy/AdvReac Type Severity Reaction Status Date / Time naproxen Allergy Rash Verified 09/25/19 09:19 Home Medications Medication Instructions Recorded Confirmed Type azathioprine 100 mg tablet 100 mg PO DAILY 06/26/19 09/22/19 History cyanocobalamin (vitamin B-12) 100 mcg SUB-Q MONTHLY 06/26/19 09/22/19 History 1,000 mcg/mL injection kit ergocalciferol (vitamin D2) 1,250 50,000 unit PO WEEKLY 06/26/19 09/22/19 History mcg (50,000 unit) capsule ezetimibe 10 mg tablet 10 mg PO DAILY 06/26/19 09/22/19 History folic acid 800 mcg tablet 0.8 mg PO DAILY 06/26/19 09/22/19 History magnesium oxide 400 mg (241.3 mg 400 mg PO DAILY 06/26/19 09/22/19 History magnesium) tablet potassium chloride 20 mEq 20 meq PO DAILY 06/26/19 09/22/19 History tablet,extended release apixaban 2.5 mg tablet 5 mg PO BID tablet 08/21/19 09/22/19 History escitalopram oxalate 5 mg tablet 5 mg PO DAILY #30 tablet 09/20/19 09/22/19 Rx metoprolol succinate 25 mg 50 mg PO DAILY #60 tablet 09/21/19 09/22/19 Rx tablet,extended release 24 hr Laboratory Tests 09/21/19 09/25/19 09/25/19 13:49 05:38 05:38 WBC 5.9 K/mm3 K/mm3 (4.5-10.0) RBC 2.84 M/mm3 L M/mm3 (4.2-5.4) Hgb 8.4 g/dL L g/dL (12.0-15.0) Hct 26.9 % L % (37.0-47.0) MCV 94.7 fl fl (80-100) MCH 29.6 pg pg (26-34) MCHC 31.2 g/dl L g/dl (32-36) RDW 16.6 % H % (11.5-14.5) Plt Count 207 k/mm3 k/mm3 (150-375) MPV 10.3 fl fl (7.4-10.4) Haptoglobin 125 mg/dL mg/dL (43-212) Sodium 135 mmol/L L mmol/L (137-145) Potassium 3.4 mmol/L mmol/L (3.4-5.0) Chloride 106 mmol/L mmol/L (98-107) Carbon Dioxide 22 mmol/L mmol/L (22-30) BUN 8 mg/dL mg/dL (7-17) Creatinine 0.90 mg/dL mg/dL (0.7-1.0) Estim Creat Clear Calc 44 ml/min ml/min Estimated GFR > 60 (59 - ) Glucose 70 mg/dL mg/dL (65-105) Calcium 8.1 mg/dL L mg/dL (8.4-10.2) Phosphorus 3.2 mg/dL mg/dL (2.5-4.5) Magnesium 2.1 mg/dL mg/dL (1.6-2.3) Patient hx anesthesia problems: none Family hx anesthesia problems: none [facility] Past Medical History Medical History Anticoagulant long-term use Arthritis Atrial fibrillation Bilateral lower extremity edema Crohn disease Crohn's colitis Crohn's disease of both small and large intestine with other complication DDD (degenerative disc disease) Depression Essential hypertension Fatigue GERD (gastroesophageal reflux disease) Hemorrhoids Removed years ago Kidney stones Extracted Pacemaker Pulsatile tinnitus of both ears Rectal bleeding 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
[2019-09-25] MEDS: LACTATED RINGERS 1,000 ML 150 ML IV CONT (09:29)
[2019-09-25] MEDS: AZATHIOPRINE 50 MG TABLET 100 MG PO (11:09)
[2019-09-25] MEDS: ESCITALOPRAM OXALATE 5 MG TABLET PO (11:10)
[2019-09-25] MEDS: THIAMINE HCL 100 MG TABLET PO (11:11)
[2019-09-25] MEDS: ERGOCALCIFEROL 50,000 UNIT CAPSULE 50000 UNITS PO (11:11)
[2019-09-25] MEDS: FOLIC ACID 1 MG TABLET PO (11:12)
[2019-09-25] MEDS: MAGNESIUM OXIDE 400 MG TABLET PO (11:13)
--- NOTE | 2019-09-25 12:08 | PM.IMPN ---
Progress Note: A&P Assessment and Plan (1) GI bleed: Qualifiers: GI bleed type/associated pathology: anorectal hemorrhage Qualified Code(s): K62.5 - Hemorrhage of anus and rectum Code(s): K92.2 - Gastrointestinal hemorrhage, unspecified Status: Acute Assessment and Plan: Etiology is unclear but pt reports intermittent episodes of bright red blood per rectum approximately 2-3 weeks ago that lasted 2 weeks. She has a hx of Chron's with 3 small bowel resections. She was also diagnosed with sessile polyposis syndrome and has had 41 polyps removed since 2017. She is established with Dr. Alberts, vending manager, from [place]. Hb is stable today at 8.4 s/p 4 units PRBC 2/14. She remains hemodynamically stable. The pt has a hx of atrial fibrillation on eliquis 5mg BID. Eliquis is being held at this time. The pt had the colonoscopy completed today which revealed multiple large internal hemorrhoids with stigmata of bleeding. Dr. Padilla has recommended EGD and SBFT. She will ultimately need follow-up with Dr. Alberts at [facility]. -Continue to monitor H & H -Await results of EGD and SBFT (2) Symptomatic anemia: Code(s): D64.9 - Anemia, unspecified Status: Acute Assessment and Plan: Pt is s/p 4 units PRBC 2/14. Hb is stable today at 8.4. Suspect acute blood loss on chronic anemia. Vitamin B12 and folate levels were checked and WNL. She is on supplementation for both due to terminal ileum resection. MCV was 109 at admission. Ferritin was 7.02 and transferrin saturation was 16 consistent with iron deficiency. -Continue to monitor H & H -Evaluate for underlying source of bleed -Replace iron (3) Crohn's colitis: Qualifiers: Digestive disease complication type: with rectal bleeding Qualified Code(s): K50.111 - Crohn's disease of large intestine with rectal bleeding Code(s): K50.10 - Crohn's disease of large intestine without complications Status: Chronic Assessment and Plan: Pt is on azathioprine 100mg PO daily. It is unclear if her Chron's is the source of bleeding. -Will continue azathioprine (4) Atrial fibrillation: Qualifiers: Atrial fibrillation type: paroxysmal Qualified Code(s): I48.0 - Paroxysmal atrial fibrillation Code(s): I48.91 - Unspecified atrial fibrillation Status: Chronic Assessment and Plan: The pt reports that she was recently increased to eliquis 5mg BID in June 2019. Eliquis is being held currently due to active GI bleed. I discussed the risk for stroke with the pt and her daughter and they understand that it must be held due to high risk for severe blood loss at this time and are agreeable. -Will await GI recommendations following EGD and SBFT Additional Plan DVT Prophylaxis: Mechanical ordered. Pharmacologic contraindicated due to active GI bleed. Subjective Date/time seen: 09/25/19 12:08 Interval history: The pt was seen and examined prior to going for her colonoscopy. She has no concerns today and is feeling better. She denies chest pain, SOB, cough, nausea, vomiting, fever, chills, and abdominal pain. She reports no blood in her stool today. Review of Systems Review of Systems: All systems reviewed & are unremarkable except as noted in HPI and below Exam Narrative: Exam Narrative: General: The pt is sitting up in bed and in no acute distress. Head: Normocephalic and atraumatic. Eyes: Conjunctivae and lids normal. PEERL. EOMI. Mouth and Throat: Mucous membranes moist. Posterior pharynx without erythema or exudate. Neck: Supple without lymphadenopathy or masses. Cardiac: Regular rate and rhythm. S1 and S2 normal. 2-3/6 systolic murmur at RSB. Lungs: Normal respiratory effort without accessory muscle use. Clear to auscultation bilaterally without adventitious breath sounds Abdomen: Bowel sounds present in all four quadrants. Abdomen is soft, non-distended, and non-tender. Extremities
[2019-09-25] MEDS: POTASSIUM CHLORIDE 20 MEQ TABLET.ER PO (12:23)
[2019-09-25] MEDS: FERROUS SULFATE 324 MG TABLET PO (17:00)
[2019-09-25] MEDS: EZETIMIBE 10 MG TABLET PO (21:57)
[2019-09-25] MEDS: METOPROLOL SUCCINATE EXT REL 50 MG TABCR PO (21:57)
[2019-09-26 06:00] VITALS: BP 135/70; PULSE 83; RESP 20; TEMP 37.4; O2SAT 96
[2019-09-26 06:26] LABS: Hematocrit 25.1 % (37.0-47.0); Mean Corpuscular HGB Conc 31.9 g/dl (32-36); Mean Corpuscular Hemoglobin 30.3 pg (26-34); Mean Corpuscular Volume 95.1 fl (80-100); Mean Platelet Volume 9.7 fl (7.4-10.4); Platelet Count Result 184 k/mm3 (150-375); Red Blood Count 2.64 M/mm3 (4.2-5.4); Red Cell Distribution Width 16.9 % (11.5-14.5); White Blood Count 6.1 K/mm3 (4.5-10.0)
--- NOTE | 2019-09-26 09:04 | PM.IMPN ---
Progress Note: A&P Assessment and Plan (1) GI bleed: Qualifiers: GI bleed type/associated pathology: anorectal hemorrhage Qualified Code(s): K62.5 - Hemorrhage of anus and rectum Code(s): K92.2 - Gastrointestinal hemorrhage, unspecified Status: Acute Assessment and Plan: Etiology is unclear but pt reports intermittent episodes of bright red blood per rectum approximately 2-3 weeks ago that lasted 2 weeks. She has had similar episodes in the past. She has a hx of Chron's with 3 small bowel resections. She was also diagnosed with sessile polyposis syndrome and has had 41 polyps removed since 2017. She is established with Dr. Alberts, director enterprise sales, from [place]. Hb is 8.0 today. She is s/p 4 units PRBC 09/22. The pt has a hx of atrial fibrillation on eliquis 5mg BID which is being held at this time. Colonoscopy revealed multiple large internal hemorrhoids with stigmata of bleeding. She will have EGD and SBFT per Dr. Padilla. She will ultimately need follow-up with Dr. Alberts at [facility]. She reports no further episodes of bright red blood per rectum since 09/24. -Continue to monitor H & H -Await results of EGD and SBFT (2) Symptomatic anemia: Code(s): D64.9 - Anemia, unspecified Status: Acute Assessment and Plan: Pt is s/p 4 units PRBC 09/22. Hb with slight decrease to 8.0. Suspect acute blood loss on chronic anemia. Vitamin B12 and folate levels were checked and WNL. She is on supplementation for both due to terminal ileum resection. MCV was 109 at admission. Ferritin was 7.02 and transferrin saturation was 16 consistent with iron deficiency. -Pt received iron infusion per Dr. Gallagher, appreciate recommendations. She will need to follow-up with Dr. Gallagher outpatient. Will continue PO iron supplementation as well. -Evaluate for underlying source of bleed (3) Crohn's colitis: Qualifiers: Digestive disease complication type: with rectal bleeding Qualified Code(s): K50.111 - Crohn's disease of large intestine with rectal bleeding Code(s): K50.10 - Crohn's disease of large intestine without complications Status: Chronic Assessment and Plan: Pt is on azathioprine 100mg PO daily. It is unclear if her Chron's is the source of bleeding. -Will continue azathioprine. (4) Atrial fibrillation: Qualifiers: Atrial fibrillation type: paroxysmal Qualified Code(s): I48.0 - Paroxysmal atrial fibrillation Code(s): I48.91 - Unspecified atrial fibrillation Status: Chronic Assessment and Plan: The pt reports that she was recently increased to eliquis 5mg BID in June 2019. Eliquis is being held currently due to active GI bleed. I discussed the risk for stroke with the pt and her daughter and they understand that it must be held due to high risk for severe blood loss at this time and are agreeable. -Will await GI recommendations following EGD and SBFT Additional Plan DVT Prophylaxis: Mechanical ordered. Pharmacologic contraindicated due to active GI bleed. Subjective Date/time seen: 09/26/19 09:04 Interval history: The pt was seen and examined. She slept well and has no complaints. She denies abdominal pain, nausea, vomiting, chest pain, and SOB. She denies STEVE, lightheadedness and dizziness. She denies further episodes of melena, hematochezia, and hematemesis. Review of Systems Review of Systems: All systems reviewed & are unremarkable except as noted in HPI and below Exam Narrative: Exam Narrative: General: The pt is sitting up in bed. She is comfortable and in no acute distress. Head: Normocephalic and atraumatic. Eyes: Conjunctivae and lids normal. PEERL. EOMI. Mouth and Throat: Mucous membranes dry. No erythema to the posterior pharynx. Neck: Supple without lymphadenopathy or masses. Cardiac: Regular rate and rhythm. S1 and S2 normal. 2-3/6 systolic murmur at RSB. Lungs: Normal respiratory effort without acces
[2019-09-26 09:48] VITALS: BMI 23.1
--- NOTE | 2019-09-26 09:52 | WPDANESPN ---
Anes - Prog Note Post-Op Date/Time: 09/26/19 09:52 Cardiovascular status: normal Respiratory status: normal Airway patency: baseline Mental status: baseline Post-Op hydration status: normal Vital Signs: Last Vital Signs Temp 37.4 C 09/26/19 06:00 Pulse 83 09/26/19 06:00 Resp 20 09/26/19 06:00 BP 135/70 09/26/19 06:00 Pulse Ox 96 09/26/19 06:00 I/O: Intake & Output 09/25/19 09/26/19 09/26/19 23:59 07:59 15:59 Intake Total 240 250 Output Total 1000 Balance 240 -750 Laboratory Tests 09/26/19 06:00 09/25/19 05:38 09/26/19 06:00 WBC 6.1 RBC 2.64 L Hgb 8.0 L Hct 25.1 L MCV 95.1 MCH 30.3 MCHC 31.9 L RDW 16.9 H Plt Count 184 MPV 9.7 Post-procedural complaints: none Patient Feedback: Patient satisfied with anesthetic care.
--- NOTE | 2019-09-26 09:56 | PC.NURSE ---
to GI lab per stretcher. iv saline locked.
[2019-09-26] MEDS: LACTATED RINGERS 1,000 ML 150 ML IV CONT (10:07)
[2019-09-26 10:11] VITALS: BP 139/79; PULSE 93; RESP 20; TEMP 37.3; O2SAT 99
--- NOTE | 2019-09-26 11:03 | WPDANESEPPF ---
Anes - Initial Pre Proc Eval Procedure: Operation Date: 09/25/19 10:00 Proposed Procedures p Colonoscopy - Akash Padilla MD Operation Date: 09/26/19 11:30 Proposed Procedures p Esophagogastroduodenoscopy - Akash Padilla MD Date/Time: 09/26/19 11:03 Surgeon: Keshia Dias PA-C Pre Op Diagnosis: Symptomatic anemia Patient Data Age: 73 Gender: F Height: 5 ft 5 in Weight: 63 kg Last Vital Signs Temp 99.2 F 09/26/19 10:11 Pulse 93 09/26/19 10:11 Resp 20 09/26/19 10:11 BP 139/79 09/26/19 10:11 Pulse Ox 99 09/26/19 10:11 Allergies Allergy/AdvReac Type Severity Reaction Status Date / Time ibuprofen Allergy Hives Verified 09/25/19 09:33 naproxen Allergy Hives Verified 09/25/19 09:32 Home Medications Medication Instructions Recorded Confirmed Type azathioprine 100 mg tablet 100 mg PO DAILY 06/26/19 09/22/19 History cyanocobalamin (vitamin B-12) 100 mcg SUB-Q MONTHLY 06/26/19 09/22/19 History 1,000 mcg/mL injection kit ergocalciferol (vitamin D2) 1,250 50,000 unit PO WEEKLY 06/26/19 09/22/19 History mcg (50,000 unit) capsule ezetimibe 10 mg tablet 10 mg PO DAILY 06/26/19 09/22/19 History folic acid 800 mcg tablet 0.8 mg PO DAILY 06/26/19 09/22/19 History magnesium oxide 400 mg (241.3 mg 400 mg PO DAILY 06/26/19 09/22/19 History magnesium) tablet potassium chloride 20 mEq 20 meq PO DAILY 06/26/19 09/22/19 History tablet,extended release apixaban 2.5 mg tablet 5 mg PO BID tablet 08/21/19 09/22/19 History escitalopram oxalate 5 mg tablet 5 mg PO DAILY #30 tablet 09/20/19 09/22/19 Rx metoprolol succinate 25 mg 50 mg PO DAILY #60 tablet 09/21/19 09/22/19 Rx tablet,extended release 24 hr Laboratory Tests 09/26/19 06:00 WBC 6.1 K/mm3 K/mm3 (4.5-10.0) RBC 2.64 M/mm3 L M/mm3 (4.2-5.4) Hgb 8.0 g/dL L g/dL (12.0-15.0) Hct 25.1 % L % (37.0-47.0) MCV 95.1 fl fl (80-100) MCH 30.3 pg pg (26-34) MCHC 31.9 g/dl L g/dl (32-36) RDW 16.9 % H % (11.5-14.5) Plt Count 184 k/mm3 k/mm3 (150-375) MPV 9.7 fl fl (7.4-10.4) Patient hx anesthesia problems: none Family hx anesthesia problems: none [facility] Past Medical History Medical History Anticoagulant long-term use Arthritis Atrial fibrillation Bilateral lower extremity edema Crohn disease Crohn's colitis Crohn's disease of both small and large intestine with other complication DDD (degenerative disc disease) Depression Essential hypertension Fatigue GERD (gastroesophageal reflux disease) Hemorrhoids Removed years ago Kidney stones Extracted Pacemaker Pulsatile tinnitus of both ears Rectal bleeding 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tory of coronary artery disease Family history of congenital heart disease Family history of pancreatic cancer Father Family history of Alzheimer's disease Family history of coronary artery disease Mother Family history of diabetes mellitus in first degree relative Family history of coronary artery disease Social History Social History Social History: The patient states that she still smokes a half a pack of cigarettes a day since she was age 16. She has 3 daughters and they are all
[2019-09-26 11:34] VITALS: BP 92/54; PULSE 81; RESP 15; O2SAT 100
[2019-09-26 11:44] VITALS: BP 97/59; PULSE 83; RESP 17; O2SAT 100
[2019-09-26 11:54] VITALS: BP 132/87; PULSE 80; RESP 15; O2SAT 100
--- NOTE | 2019-09-26 12:38 | PC.NURSE ---
Returned from GI Lab.
[2019-09-26] MEDS: FERROUS SULFATE 324 MG TABLET PO ×2 (13:54→16:56)
[2019-09-26] MEDS: POTASSIUM CHLORIDE 20 MEQ TABLET.ER PO (13:54)
[2019-09-26] MEDS: THIAMINE HCL 100 MG TABLET PO (13:54)
[2019-09-26] MEDS: AZATHIOPRINE 50 MG TABLET 100 MG PO (13:55)
[2019-09-26] MEDS: MAGNESIUM OXIDE 400 MG TABLET PO (13:55)
[2019-09-26] MEDS: ESCITALOPRAM OXALATE 5 MG TABLET PO (13:55)
[2019-09-26] MEDS: FOLIC ACID 1 MG TABLET PO (13:55)
[2019-09-26 14:44] VITALS: BP 115/62; PULSE 83; RESP 16; TEMP 37.2; O2SAT 100
--- NOTE | 2019-09-26 15:18 | PM.IMPN ---
Progress Note: A&P Assessment and Plan (1) GI bleed: Qualifiers: GI bleed type/associated pathology: anorectal hemorrhage Qualified Code(s): K62.5 - Hemorrhage of anus and rectum Code(s): K92.2 - Gastrointestinal hemorrhage, unspecified Status: Acute Assessment and Plan: Etiology is unclear but pt reports intermittent episodes of bright red blood per rectum approximately 2-3 weeks ago that lasted 2 weeks. She has had similar episodes in the past. She has a hx of Chron's with 3 small bowel resections. She was also diagnosed with sessile polyposis syndrome and has had 41 polyps removed since 2017. She is established with Dr. Alberts, cuprous chloride operator, from [place]. Hb is 8.0 today. She is s/p 4 units PRBC 2/. Colonoscopy revealed multiple large internal hemorrhoids with stigmata of bleeding. 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 She will need to follow-up with Dr. Alberts at [facility] since she is already established there. She has not had any further episodes of melena or hematochezia. Hb is stable at 8.0. -Follow-up with PCP in 1-2 weeks -Follow-up with Dr. Gallagher in 2 weeks -Discontinue eliquis. I spoke with Dr. Kendrick's office and they advised that Dr. Kendrick is ok for her to hold eliquis. She will need to follow-up with his office in 2-3 weeks. (2) Symptomatic anemia: Code(s): D64.9 - Anemia, unspecified Status: Acute Assessment and Plan: Pt is s/p 4 units PRBC 2/14. Hb with slight decrease to 8.0. Suspect acute blood loss on chronic anemia. Vitamin B12 and folate levels were checked and WNL. She is on supplementation for both due to terminal ileum resection. MCV was 109 at admission. Ferritin was 7.02 and transferrin saturation was 16 consistent with iron deficiency. Suspect that GI bleeding is multifactorial and likely due to distal esophagitis, internal hemorrhoids, and possibly Chron's disease. -Pt received iron infusion per Dr. Gallagher, appreciate recommendations. Per Dr. Gallagher, pt should be discharged on ferrous sulfate 325mg PO TID and cyanocobalamin 500mg PO QD. She will need to follow-up with Dr. Gallagher outpatient in 2 weeks with repeat CBC. (3) Crohn's colitis: Qualifiers: Digestive disease complication type: with rectal bleeding Qualified Code(s): K50.111 - Crohn's disease of large intestine with rectal bleeding Code(s): K50.10 - Crohn's disease of large intestine without complications Status: Chronic Assessment and Plan: Pt is on azathioprine 100mg PO daily. It is unclear if her Chron's is the source of bleeding. -Will continue azathioprine (4) Atrial fibrillation: Qualifiers: Atrial fibrillation type: paroxysmal Qualified Code(s): I48.0 - Paroxysmal atrial fibrillation Code(s): I48.91 - Unspecified atrial fibrillation Status: Chronic Assessment and Plan: The pt reports that she was recently increased to eliquis 5mg BID in June 2019. Eliquis has been held due to active GI bleed. The risk of stroke was discussed with the pt. She is at high risk for severe GI bleed. Per Dr. Padilla, the recommendation is to hold eliquis indefinitely. I called Dr. Kendrick's office to notify them of the patient's condition and Dr. Kendrick is okay with her holding eliquis. -She will need to follow-up with Dr. Kendrick in 2-3 weeks Additional Plan DVT Prophylaxis: Mechanical ordered. Pharmacologic contraindicated due to active GI bleed. Subjective Date/time seen: 09/26/19 15:18 Interval history: Mrs. Robert is seen and examined at bedside. She reports no further episodes of blood in the stool. She denies abdominal pain, nausea, and vomiting. She denies chest pain, SOB, and cough. She denies dizziness and lightheadedness. She is feeling much bet
--- NOTE | 2019-09-26 15:44 | CONS_ITS ---
DATE OF CONSULTATION: 09/25/2019 REASON FOR CONSULTATION: Anemia. HISTORY OF PRESENTING ILLNESS: This is a pleasant 73-year-old female with history of Crohn disease, which has been followed by the consumer lender at [facility]. She came into the hospital with 2 weeks history of rectal bleeding. She is currently on Imuran. She has been having colonoscopies twice a year for the Crohn disease. She complained of shortness of breath along with tiredness and fatigue. Her hemoglobin was found to be 4.4 by the primary care physician. She also takes Eliquis for the atrial fibrillation. She is feeling better after 4 units of packed red blood cell transfusion with improvement in hemoglobin. REVIEW OF SYSTEMS: A 12-point review of systems was reviewed and as per HPI, otherwise negative. PAST MEDICAL HISTORY: Crohn disease, atrial fibrillation, bilateral lower extremity edema, degenerative disk disease, depression, hypertension, GERD, hemorrhoid, kidney stone, and squamous cell carcinoma of the skin. PAST SURGICAL HISTORY: Polypectomy, colonoscopy, hysterectomy, cholecystectomy, and gastroplasty. HOME MEDICATIONS: Reviewed. ALLERGIES: REVIEWED. SOCIAL HISTORY: The patient smokes half pack of cigarettes per day and has been smoking since age 16. She drinks occasionally. She is and lives with her . PHYSICAL EXAMINATION: GENERAL: This patient is a well-developed, well-nourished female, in no apparent distress. Alert and oriented. VITAL SIGNS: Per nursing note. HEENT: Normocephalic, atraumatic. Clear oropharynx. LUNGS: Clear to auscultation bilaterally. CARDIOVASCULAR: Regular rate and rhythm. No murmurs. ABDOMEN: Soft, nontender, nondistended. Bowel sounds are positive in all 4 quadrants. No hepatosplenomegaly. EXTREMITIES: No edema. NEURO EXAM: Grossly intact. LABORATORY DATA: WBC 6.1, hemoglobin 8.0, MCV 95.1, platelet 184,000, creatinine 0.9, calcium 8.1, iron level 63, ferritin 7.0, iron saturation 16%. Vitamin B12 309, LDH 337. ASSESSMENT AND PLAN: Normocytic anemia. The patient has a history of Crohn disease with GI bleeding. She has been taking Imuran for the Crohn disease. Her anemia is clearly secondary to iron deficiency and mild vitamin B12 deficiency. I have started her on B12 injections. I also started her on IV iron infusion. The patient had EGD done today that showed esophageal lap reflects esophagitis, hiatal hernia, and gastric fistula. Biopsies were taken. GI service has been following the patient. I will continue with the IV iron infusion and vitamin B12 replacement. Some of the anemia can also be due to immunosuppressive therapy with Imuran. I have also discussed other possibilities of anemia like myelodysplasia, which is probably not likely in this clinical situation. I have answered all the questions to the patient's satisfaction. The patient has been provided with my office information where she will follow up for future management. I have answered all the questions to the patient's satisfaction. RASHMI TOLBERT M.D. MEDIA ASSISTANT MEDIA ASSISTANT D I MT: Gael
--- NOTE | 2019-09-27 07:15 | PM.DS ---
DS: Diagnosis Admitting Diagnosis Admitting Diagnosis: Anemia, unspecified Discharge Diagnosis (1) GI bleed: Qualifiers: GI bleed type/associated pathology: anorectal hemorrhage Qualified Code(s): K62.5 - Hemorrhage of anus and rectum Code(s): K92.2 - Gastrointestinal hemorrhage, unspecified Status: Acute Assessment and Plan: Discharge Summary - Date of Service 09/26/2019 Mrs. Robert is a 73 y.o. female with PMH significant for Chron's disease on imuran s/p three bowel resections including terminal ileum resection, sessile polyposis syndrome, paroxysmal atrial fibrillation on eliquis, s/p pacemaker placement, and anemia. She presented to the ED with c/o rectal bleeding for 2-3 weeks. She endorsed a history of prior episodes of rectal bleeding. She also endorsed profound fatigue and weakness. Initial workup in the ED revealed Hb of 3.7 and Hct of 12.9. Eliquis was held. She was transfused [address] Padilla, diesel engine mechanic, saw the pt and recommended transfusion to stale hemoglobin and follow-up colonoscopy. She initially requested to have her colonoscopy with Dr. Alberts at [facility] since she was already established there. She later expressed concern that she would be unable to get an appointment in a timely manner to see him. Due to her profound anemia, unestablished follow-up plan, and persistent GI blood loss despite holding eliquis, it was felt that she would benefit from a colonocopy prior to discharge. Dr. Padilla performed colonoscopy and identified multiple large internal hemorrhoids with bleeding stigmata. 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 Dr. Padilla recommended high dose PPI for 1-2 weeks. She will need to be on once daily PPI after she completes 2 weeks of BID PPI therapy. Dr. Gallagher also saw the pt and iron was replaced with iron transfusions. He recommended ferrous sulfate 325 mg TID and cyanocobalamin 500mg QD for 1 week. She was continued on her folic acid. She is at high risk for B12 and folate deficiency due to Chron's diseaes/imuran therapy. She was hemodynamically stable at the time of discharge. She was ambulating well and tolerating PO intake. She was instructed on the importance of PPI compliance. Follow-up plans were arranged and she will need repeat CBC in 1 week. She was advised to return immediately should she develop melena, hematochezia, hematemesis, fatigue, or weakness. She verbalized understanding. Further instructions are below. (2) Symptomatic anemia: Code(s): D64.9 - Anemia, unspecified Status: Acute Assessment and Plan: Pt is s/p 4 units PRBC 09/22. Hb with slight decrease to 8.0. Suspect acute blood loss on chronic anemia. Vitamin B12 and folate levels were checked and WNL. She is on supplementation for both due to terminal ileum resection. MCV was 109 at admission. Ferritin was 7.02 and transferrin saturation was 16 consistent with iron deficiency. Suspect that GI bleeding is multifactorial and likely due to distal esophagitis, internal hemorrhoids, and possibly Chron's disease. -Pt received iron infusion per Dr. Gallagher, appreciate recommendations. Per Dr. Gallagher, pt should be discharged on ferrous sulfate 325mg PO TID and cyanocobalamin 500mg PO QD. She will need to follow-up with Dr. Gallagher outpatient in 2 weeks with repeat CBC. (3) Crohn's colitis: Qualifiers: Digestive disease complication type: with rectal bleeding Qualified Code(s): K50.111 - Crohn's disease of large intestine with rectal bleeding Code(s): K50.10 - Crohn's disease of large intestine without complications Status: Chronic Assessment and Plan: Pt is on azathioprine 100mg PO daily. It is unclear if her Chron's is the source of
--- NOTE | 2019-09-29 13:43 | PC.NURSE ---
colon bx shows columnar mucosa with mild chronic inflammation. Negative for intestinal metaplasia or dysplasia.
== END 2019-09-26 17:46 | disposition home or self-care (01) | DRG 386 ==
LOC: ANHED 13:52 → ANH3MEDSUR 14:21
PROVIDERS: Emergency Medicine; Hospitalist; Internal Medicine Gastroenterology; Nurse Practitioner; Physician Assistant; Admitting Provider Family Medicine; Emergency Provider Emergency Medicine; PCP Family Medicine; Visit Provider Internal Medicine
PROC: 0DJD8ZZ Inspection of Lower Intestinal Tract, Via Natural or Artificial Opening Endoscopic (ICD-10-PCS; CPT 45378; principal; 2019-09-25 10:00)
PROC: 0DJ08ZZ Inspection of Upper Intestinal Tract, Via Natural or Artificial Opening Endoscopic (ICD-10-PCS; CPT 43235; principal; 2019-09-26 11:30)
DX: K50.111 Crohn's disease of large intestine with rectal bleeding (principal); D62 Acute posthemorrhagic anemia; K31.6 Fistula of stomach and duodenum; K21.0 Gastro-esophageal reflux disease with esophagitis; K64.8 Other hemorrhoids; Z86.010 Personal history of colon polyps; Z80.0 Family history of malignant neoplasm of digestive organs; F32.9 Major depressive disorder, single episode, unspecified; Z87.442 Personal history of urinary calculi; Z95.0 Presence of cardiac pacemaker; H93.13 Tinnitus, bilateral; Z85.828 Personal history of other malignant neoplasm of skin; I48.0 Paroxysmal atrial fibrillation; R01.1 Cardiac murmur, unspecified; Z90.49 Acquired absence of other specified parts of digestive tract; Z90.710 Acquired absence of both cervix and uterus; M19.90 Unspecified osteoarthritis, unspecified site; K64.4 Residual hemorrhoidal skin tags; I10 Essential (primary) hypertension; E53.8 Deficiency of other specified B group vitamins; Z79.01 Long term (current) use of anticoagulants; D53.9 Nutritional anemia, unspecified; F17.210 Nicotine dependence, cigarettes, uncomplicated; K44.9 Diaphragmatic hernia without obstruction or gangrene; D50.9 Iron deficiency anemia, unspecified; K22.8 Other specified diseases of esophagus; K22.2 Esophageal obstruction
CPT/HCPCS: 36415; 36430; 80048; 80053; 82274; 82607; 82728; 82746; 83010; 83540; 83550; 83615; 83735; 84100; 84439; 84443; 84480; 85014; 85018; 85025; 85027; 85046; 85610; 85730; 86850; 86880; 86900; 86901; 86920; 86923; 88305; 99285; A9270; J1756; J2704; J3475; J7050; J7120; P9016

== ENCOUNTER 2019-10-03 13:09 | Outpatient (CLI) | payer MEDICARE, BC, SELFPAY ==
[2019-10-03 14:08] LABS: Basophils Percent Auto 0.6 % (0.2-1.2); Eosinophils Absolute Auto 0.2 K/mm3 (0-0.3); Eosinophils Percent Auto 4.5 % (0-4.4); Hematocrit 31.2 % (37.0-47.0); Hemoglobin 9.4 g/dL (12.0-15.0); Immature Granulocyte Absolute 0.02 K/mm3 (0.00-0.031); Immature Granulocyte Percent A 0.4 % (0-0.5); Lymphocytes Absolute Auto 0.85 K/mm3 (0.9-3.2); Lymphocytes Percent Auto 16.5 % (18.3-44.2); Mean Corpuscular HGB Conc 30.1 g/dl (32-36); Mean Corpuscular Hemoglobin 30.6 pg (26-34); Mean Corpuscular Volume 101.6 fl (80-100); Mean Platelet Volume 10.7 fl (7.4-10.4); Monocytes Absolute Auto 0.6 K/mm3 (0.1-0.6); Monocytes Percent Auto 10.9 % (2.6-8.5); Neutrophils Absolute Auto 3.5 K/mm3 (1.3-6.7); Neutrophils Percent Auto 67.1 % (45.5-73.1); Platelet Count Result 239 k/mm3 (150-375); Red Blood Count 3.07 M/mm3 (4.2-5.4); Red Cell Distribution Width 18.3 % (11.5-14.5); White Blood Count 5.2 K/mm3 (4.5-10.0)
== END 2019-10-03 13:10 | disposition home or self-care (01) ==
PROVIDERS: PCP Family Medicine; Visit Provider Physician Assistant
DX: D64.9 Anemia, unspecified (principal)
CPT/HCPCS: 36415; 85025

== ENCOUNTER 2019-10-10 09:45 | Outpatient (CLI) | payer MEDICARE, BC, SELFPAY ==
[2019-10-10 10:00] LABS: Hematocrit 31.4 % (37.0-47.0); Hemoglobin 9.8 g/dL (12.0-15.0); Mean Corpuscular HGB Conc 31.2 g/dl (32-36); Mean Corpuscular Volume 102.6 fl (80-100); Mean Platelet Volume 9.5 fl (7.4-10.4); Platelet Count Result 322 k/mm3 (150-375); Red Blood Count 3.06 M/mm3 (4.2-5.4); Red Cell Distribution Width 18.8 % (11.5-14.5)
[2019-10-10 12:41] LABS: Iron 118 ug/dL (37-170)
[2019-10-10 12:50] LABS: Percent Iron Saturation 39 % (20-50)
== END 2019-10-10 09:46 | disposition home or self-care (01) ==
LOC: ANHLAB 09:47
PROVIDERS: PCP Family Medicine; Visit Provider Internal Medicine Hematology & Oncology
DX: D64.9 Anemia, unspecified (principal)
CPT/HCPCS: 36415; 82607; 82728; 83540; 83550; 85027

== ENCOUNTER → 2019-12-25 09:50 | Outpatient (REF) | payer MEDICARE, BC, SELFPAY | LOC: ANHLAB 09:50 | PROVIDERS: PCP Family Medicine; Visit Provider Nurse Practitioner | DX: C44.329 Squamous cell carcinoma of skin of other parts of face (principal); D49.2 Neoplasm of unspecified behavior of bone, soft tissue, and skin | CPT/HCPCS: 88305; 88331 ==

== ENCOUNTER 2020-01-19 09:58 | Outpatient (CLI) | payer MEDICARE, BC, SELFPAY ==
--- NOTE | ~2020-01-19 | MM_ITS ---
EXAMINATION: MM screening luis BI w charles HISTORY: Screening mammogram TECHNIQUE: Craniocaudal and mediolateral oblique 3-D tomosynthesis images were obtained and synthetic 2-D images were generated. CAD analysis was submitted and interpreted. COMPARISON: 11/16/2018/, 06/19/2015 bilateral digital screening mammogram examinations BREAST PARENCHYMAL COMPOSITION: There are scattered areas of fibroglandular density. FINDINGS: There is no evidence of suspicious mass, calcification, or architectural distortion to sugg est malignancy in either breast. There has been no suspicious interval change. IMPRESSION: 1. No mammographic evidence of malignancy. 2. Recommend routine screening mammography in one year. BI-RADS Category 1: Negative Reviewed, dictated and finalized at location A.
== END 2020-01-19 09:59 | disposition home or self-care (01) ==
LOC: ANHIMG 10:01
PROVIDERS: PCP Family Medicine; Visit Provider Family Medicine
DX: Z12.31 Encounter for screening mammogram for malignant neoplasm of breast (principal)
CPT/HCPCS: 77063; 77067

== ENCOUNTER → 2020-03-11 13:34 | Outpatient (REF) | payer MEDICARE, BC, SELFPAY | LOC: ANHLAB 13:34 | PROVIDERS: PCP Family Medicine; Visit Provider Nurse Practitioner | DX: L57.0 Actinic keratosis (principal) | CPT/HCPCS: 88305 ==

== ENCOUNTER 2020-05-21 10:31 | Outpatient (CLI) | payer MEDICARE, BC, SELFPAY ==
[2020-05-21 10:57] LABS: Basophils Percent Auto 0.3 % (0.2-1.2); Eosinophils Absolute Auto 0.1 K/mm3 (0-0.3); Eosinophils Percent Auto 2.4 % (0-4.4); Hematocrit 30.7 % (37.0-47.0); Hemoglobin 9.8 g/dL (12.0-15.0); Immature Granulocyte Absolute 0.03 K/mm3 (0.00-0.031); Immature Granulocyte Percent A 0.5 % (0-0.5); Lymphocytes Absolute Auto 0.91 K/mm3 (0.9-3.2); Lymphocytes Percent Auto 15.3 % (18.3-44.2); Mean Corpuscular HGB Conc 31.9 g/dl (32-36); Mean Corpuscular Hemoglobin 34.9 pg (26-34); Mean Corpuscular Volume 109.3 fl (80-100); Mean Platelet Volume 10.2 fl (7.4-10.4); Monocytes Absolute Auto 0.5 K/mm3 (0.1-0.6); Monocytes Percent Auto 8.1 % (2.6-8.5); Neutrophils Absolute Auto 4.4 K/mm3 (1.3-6.7); Neutrophils Percent Auto 73.4 % (45.5-73.1); Platelet Count Result 227 k/mm3 (150-375); Red Blood Count 2.81 M/mm3 (4.2-5.4); Red Cell Distribution Width 15.5 % (11.5-14.5); White Blood Count 5.9 K/mm3 (4.5-10.0)
[2020-05-22 04:44] LABS: Alanine Aminotransferase 24 U/L (4-35); Albumin Level 2.9 g/dL (3.5-5.1); Alkaline Phosphatase 171 U/L (38-126); Anion Gap 6 mmol/L (8-16); Aspartate Amino Transferase 30 U/L (14-36); Bilirubin,Total 0.5 mg/dL (0.2-1.3); Blood Urea Nitrogen 17 mg/dL (7-17); Calcium 8.9 mg/dL (8.4-10.2); Carbon Dioxide 23 mmol/L (22-30); Chloride 113 mmol/L (98-107); Estimated Glomerular Filt Rate 54; Glucose 91 mg/dL (65-105); Sodium 142 mmol/L (137-145)
[2020-05-22 05:24] LABS: Iron 81 ug/dL (37-170)
[2020-05-22 05:33] LABS: Percent Iron Saturation 25 % (20-50)
[2020-05-22 06:18] LABS: Folic Acid > 20.0 ng/mL (2.76->20)
== END 2020-05-21 10:32 | disposition home or self-care (01) ==
PROVIDERS: PCP Family Medicine; Visit Provider Internal Medicine Hematology & Oncology
DX: D64.9 Anemia, unspecified (principal)
CPT/HCPCS: 36415; 80053; 82607; 82728; 82746; 83540; 83550; 85025

== ENCOUNTER 2020-08-16 14:23 | Outpatient (CLI) | payer MEDICARE, BC, SELFPAY ==
--- NOTE | ~2020-08-16 | DEXA_ITS ---
Bone Density Report Name: Eliana Robert Age: 74 Sex: Female Ethnicity: White Date of : 1945 Indication: osteopenia; height loss; inflammatory bowel disease; hysterectomy; Referring Provider: LEONA JUNIOR Study: Bone densitometry was performed. Exam Date: August 16, 2020 Accession number: [id number] Bone Density: Region BMD T-score Z-score Classification AP Spine (L1-L4) 0.697 -3.2 -0.8 Osteoporosis Femoral Neck (Left) 0.365 -4.4 -2.3 Osteoporosis Total Hip (Left) 0.509 -3.5 -1.8 Osteoporosis Total Hip Bilateral Avg 0.538 -3.3 -1.6 Osteoporosis Femoral Neck (Right) 0.456 -3.5 -1.5 Osteoporosis Total Hip (Right) 0.567 -3.1 -1.3 Osteoporosis World Health Organization criteria for BMD impression classify patients as: Normal (T-score at or above -1.0), Osteopenia (T-score between -1.0 and -2.5), or Osteoporosis (T-score at or below -2.5). 10-year Fracture Risk: FRAX not reported because: Some T-score for Spine Total or Hip Total or Femoral Neck at or below -2.5 Previous Exams: Region Exam Age BMD T-score BMD Change BMD Change Date g/cm2 vs Baseline vs Previous AP Spine(L1-L4) 08/16/2020 74 0.697 -3.2 -0.151(-17.8%) -0.113(-14.0%) 11/09/2017 71 0.810 -2.2 -0.038(-4.4%)* -0.038(-4.4%)* 10/31/2015 69 0.848 -1.8 Total Hip(Left) 08/16/2020 74 0.509 -3.5 -0.176(-25.7%) -0.202(-28.4%) 11/09/2017 71 0.711 -1.9 0.026(3.9%) 0.026(3.9%) 10/31/2015 69 0.685 -2.1 Total Hip(Right) 08/16/2020 74 0.567 -3.1 -0.126(-18.2%) -0.108(-16.0%) 11/09/2017 71 0.674 -2.2 -0.018(-2.7%) -0.018(-2.7%) 10/31/2015 69 0.693 -2.0 *Denotes significance at 95% confidence level, LSC for AP Spine = 0.022 g/cm2, LSC for Total Hip = 0.027 g/cm2 Clinical Information Provided by Patient: Smokes Has used the following medications: Vitamin D Has the following medical conditions: Inflammatory bowel diseases, Hysterectomy, CROHN'S Patient maximum height was 66 Menopause Age: 35 No regular weight bearing exercise Drinks caffeinated beverages Onset of menses at age 11 Number of children 3 Impression: The patient has osteoporosis, based on the Left Femoral Neck T-score. The patient has risk factors, including: smoking. The BMD for the AP Spine(L1-L4) decreased, changing by -14.0% since the last DXA exam. The BMD for the Total Hip(Left) decreased, changing by -28.4% since the last DXA exam. The BMD for the Total Hip(Right) decreased, changing
--- NOTE | ~2020-08-16 | CT_ITS ---
EXAMINATION: CT chest wo con EXAM DATE: 08/16/2020 14:17 INDICATION: R91.1 - Solitary pulmonary nodule. TECHNIQUE: Spiral CT of the chest without contrast. Axial, coronal and sagittal images were reviewe d. Coronal maximum intensity pixel images of chest reviewed. The dose-length product (DLP) for this examination was 56.73 mGy-cm. The exposure was tailored according to patient size (auto mA exposure control), and iterative reconstruction (ASIR) was used as additional dose reduction technique. Dimitris rison is made to prior examination from 11/16/2018. FINDINGS: Right upper lobe calcified granuloma. There is mild to moderate emphysema and hyperinflati on. Trace pericardial effusion. Tracheobronchial tree is patent. There is no mediastinal, hilar o r axillary lymphadenopathy. There is no pneumothorax. Heart normal in size. Pacemaker/AICD device . There are sternotomy wires, and cardiac/coronary surgical changes. Correlate with prior history. G astroesophageal surgical changes. Some liver cysts. Left nephrolithiasis. There is thoracic spondylo sis without osteoblastic or osteolytic lesions identified. IMPRESSION: 1. Mild to moderate emphysema and hyperinflation. 2. Surgical changes. Reviewed, dictated and finalized at location A. ERTY INSPECTOR
== END 2020-08-16 14:24 | disposition home or self-care (01) ==
PROVIDERS: PCP Family Medicine; Visit Provider Physician Assistant
DX: R91.1 Solitary pulmonary nodule (principal); I48.0 Paroxysmal atrial fibrillation; M81.0 Age-related osteoporosis without current pathological fracture; J43.9 Emphysema, unspecified
CPT/HCPCS: 71250; 77080

== ENCOUNTER 2020-10-02 13:55 | Outpatient (CLI) | payer MEDICARE, BC, SELFPAY ==
[2020-10-02 14:10] LABS: Basophils Percent Auto 0.6 % (0.2-1.2); Eosinophils Absolute Auto 0.2 K/mm3 (0-0.3); Eosinophils Percent Auto 3.5 % (0-4.4); Hematocrit 28.7 % (37.0-47.0); Hemoglobin 9.2 g/dL (12.0-15.0); Immature Granulocyte Absolute 0.03 K/mm3 (0.00-0.031); Immature Granulocyte Percent A 0.5 % (0-0.5); Lymphocytes Absolute Auto 1.04 K/mm3 (0.9-3.2); Lymphocytes Percent Auto 16.5 % (18.3-44.2); Mean Corpuscular HGB Conc 32.1 g/dl (32-36); Mean Corpuscular Hemoglobin 35.8 pg (26-34); Mean Corpuscular Volume 111.7 fl (80-100); Monocytes Absolute Auto 0.5 K/mm3 (0.1-0.6); Monocytes Percent Auto 7.1 % (2.6-8.5); Neutrophils Absolute Auto 4.5 K/mm3 (1.3-6.7); Neutrophils Percent Auto 71.8 % (45.5-73.1); Platelet Count Result 214 k/mm3 (150-375); Red Blood Count 2.57 M/mm3 (4.2-5.4); Red Cell Distribution Width 16.3 % (11.5-14.5); White Blood Count 6.3 K/mm3 (4.5-10.0)
[2020-10-02 14:14] LABS: Blood Urea Nitrogen 14 mg/dL (8-26); Carbon Dioxide 21 mmol/L (22-30); Chloride 111 mmol/L (98-109); Estimated Glomerular Filt Rate > 60; Glucose 79 mg/dL (70-105); Potassium 3.4 mmol/L (3.5-4.9); Sodium 143 mmol/L (138-146)
[2020-10-02 18:21] LABS: Iron 93 ug/dL (37-170)
[2020-10-02 18:26] LABS: Alanine Aminotransferase 18 U/L (4-35); Albumin Level 3.1 g/dL (3.5-5.1); Alkaline Phosphatase 129 U/L (38-126); Anion Gap 7 mmol/L (8-16); Aspartate Amino Transferase 25 U/L (14-36); Bilirubin,Total 0.6 mg/dL (0.2-1.3); Blood Urea Nitrogen 15 mg/dL (7-17); Calcium 8.7 mg/dL (8.4-10.2); Carbon Dioxide 21 mmol/L (22-30); Chloride 114 mmol/L (98-107); Estimated Glomerular Filt Rate > 60; Glucose 80 mg/dL (65-105); Potassium 3.5 mmol/L (3.4-5.0); Sodium 142 mmol/L (137-145)
[2020-10-02 18:36] LABS: Percent Iron Saturation 29 % (20-50)
== END 2020-10-02 13:56 | disposition home or self-care (01) ==
LOC: ANHLAB 13:57
PROVIDERS: PCP Family Medicine; Visit Provider Internal Medicine Hematology & Oncology
DX: D64.9 Anemia, unspecified (principal)
CPT/HCPCS: 36415; 80048; 80053; 82607; 82728; 83540; 83550; 85025

== ENCOUNTER → 2020-10-12 01:20 | Outpatient (CLI) | payer MEDICARE, BC, SELFPAY ==
[2020-10-12 19:48] LABS: SARS-CoV-2 RNA PCR Negative
== END ==
PROVIDERS: Radiology Diagnostic Radiology; PCP Physician Assistant; Visit Provider Internal Medicine Hematology & Oncology
DX: Z20.822 Contact with and (suspected) exposure to COVID-19 (principal); D64.9 Anemia, unspecified
CPT/HCPCS: C9803; U0003; U0005

== ENCOUNTER 2020-10-15 00:59 | Day surgery (SDC) | payer MEDICARE, BC, SELFPAY ==
[2020-10-14 18:48] VITALS: BMI 21.2
--- NOTE | ~2020-10-15 | BM_ITS ---
EXAMINATION: CCL bone marrow asp w bx diag DATE: 10/15/2020 08:56 INDICATION: Chronic anemia. TECHNIQUE: A time-out was performed to verify the patient's name, date of , and procedure to b e performed. The procedure including the risks, benefits, and alternatives was discussed with the pat ient. Risks discussed included bleeding and infection. The patient understood the risks and agreed to proceed. The skin overlying the right ilium was prepped and draped in usual sterile fashion. Anest hetic was administered with 1% lidocaine subcutaneously. 50 mcg fentanyl IV was given for pain contro l. An 11 gauge needle was inserted into the ilium with fluoroscopic guidance. Bone marrow was aspira yelitza. An 8 gauge needle was then inserted into the ilium with fluoroscopic guidance. A core bone marro w biopsy was obtained. There were no immediate complications. Fluoroscopy exposure time was 0.0 minut es. The total number of images was 9. FINDINGS: Real-time fluoroscopy demonstrates a marker overlying the right posterior superior iliac sp ine. IMPRESSION: 1. Fluoro-guided bone marrow aspiration. 2. Fluoro-guided bone marrow core biopsy. Reviewed, dictated and finalized at location A. BOTOMY SERVICES TECHNICIAN
[2020-10-15 07:58] VITALS: BMI 21.4
[2020-10-15 08:04] VITALS: BP 120/74; PULSE 80; RESP 18; TEMP 36.6; O2SAT 100
[2020-10-15 08:04] LABS: Basophils Percent Auto 0.4 % (0.2-1.2); Eosinophils Absolute Auto 0.2 K/mm3 (0-0.3); Eosinophils Percent Auto 3.6 % (0-4.4); Hematocrit 29.9 % (37.0-47.0); Hemoglobin 9.5 g/dL (12.0-15.0); Immature Granulocyte Absolute 0.04 K/mm3 (0.00-0.031); Immature Granulocyte Percent A 0.6 % (0-0.5); Lymphocytes Absolute Auto 0.87 K/mm3 (0.9-3.2); Lymphocytes Percent Auto 12.9 % (18.3-44.2); Mean Corpuscular HGB Conc 31.8 g/dl (32-36); Mean Corpuscular Hemoglobin 36.5 pg (26-34); Mean Platelet Volume 10.4 fl (7.4-10.4); Monocytes Absolute Auto 0.6 K/mm3 (0.1-0.6); Monocytes Percent Auto 8.7 % (2.6-8.5); Neutrophils Percent Auto 73.8 % (45.5-73.1); Platelet Count Result 245 k/mm3 (150-375); Red Cell Distribution Width 16.9 % (11.5-14.5); White Blood Count 6.8 K/mm3 (4.5-10.0)
[2020-10-15 08:13] LABS: INR 1.1; Prothrombin Time 14.5 Seconds (11.1-14.7)
[2020-10-15 09:15] VITALS: BP 123/76; PULSE 80; RESP 18; O2SAT 100
[2020-10-15 09:30] VITALS: BP 133/69; PULSE 80; RESP 16; O2SAT 100
[2020-10-15 09:45] VITALS: BP 121/71; PULSE 80; RESP 17; O2SAT 100
== END 2020-10-15 10:30 | disposition home or self-care (01) ==
PROVIDERS: PCP Family Medicine; Visit Provider Radiology Diagnostic Radiology
DX: D50.9 Iron deficiency anemia, unspecified (principal); D51.9 Vitamin B12 deficiency anemia, unspecified; K50.90 Crohn's disease, unspecified, without complications; I48.91 Unspecified atrial fibrillation
CPT/HCPCS: 36415; 38222; 85025; 85610; 88184; 88185; 88305; 88311; 88313; J2250; J3010; J7040

== ENCOUNTER → 2020-10-24 12:06 | Outpatient (REF) | payer MEDICARE, BC, SELFPAY | LOC: ANHLAB 12:06 | PROVIDERS: PCP Family Medicine; Visit Provider Nurse Practitioner | DX: C44.529 Squamous cell carcinoma of skin of other part of trunk (principal); L57.0 Actinic keratosis | CPT/HCPCS: 88305 ==

== ENCOUNTER 2020-11-15 15:09 | Emergency (ER) | payer MEDICARE, BC, SELFPAY ==
[2020-11-15 15:22] VITALS: BP 134/76; PULSE 90; RESP 18; TEMP 36.6; O2SAT 98
--- NOTE | 2020-11-15 15:29 | ECG_ITS ---
Measurements Intervals [place] Rate: 82 P: 121 ND: 173 QRS: -57 QRSD: 156 T: 104 QT: 424 QTc: 496 Interpretive Statements ELECTRONIC ATRIAL PACEMAKER ELECTRONIC VENTRICULAR PACEMAKER BASELINE WANDER- V4 NO FURTHER INTERPRETATION IS POSSIBLE ATYPICAL ECG Electronically Signed On 11-15-2020 15:31:19 CDT by Dario Guerrero D.O.
[2020-11-15 15:40] LABS: Basophils Percent Auto 0.6 % (0.2-1.2); Eosinophils Absolute Auto 0.2 K/mm3 (0-0.3); Eosinophils Percent Auto 4.2 % (0-4.4); Hematocrit 27.3 % (37.0-47.0); Hemoglobin 8.7 g/dL (12.0-15.0); Immature Granulocyte Absolute 0.02 K/mm3 (0.00-0.031); Immature Granulocyte Percent A 0.4 % (0-0.5); Lymphocytes Absolute Auto 0.78 K/mm3 (0.9-3.2); Lymphocytes Percent Auto 14.3 % (18.3-44.2); Mean Corpuscular HGB Conc 31.9 g/dl (32-36); Mean Corpuscular Volume 112.8 fl (80-100); Mean Platelet Volume 10.1 fl (7.4-10.4); Monocytes Absolute Auto 0.7 K/mm3 (0.1-0.6); Monocytes Percent Auto 13.4 % (2.6-8.5); Neutrophils Absolute Auto 3.7 K/mm3 (1.3-6.7); Neutrophils Percent Auto 67.1 % (45.5-73.1); Platelet Count Result 203 k/mm3 (150-375); Red Blood Count 2.42 M/mm3 (4.2-5.4); Red Cell Distribution Width 15.4 % (11.5-14.5); White Blood Count 5.4 K/mm3 (4.5-10.0)
[2020-11-15 15:57] LABS: Alanine Aminotransferase 18 U/L (4-35); Alkaline Phosphatase 130 U/L (38-126); Anion Gap 4 mmol/L (8-16); Aspartate Amino Transferase 27 U/L (14-36); Bilirubin,Total 0.4 mg/dL (0.2-1.3); Blood Urea Nitrogen 13 mg/dL (7-17); Calcium 7.6 mg/dL (8.4-10.2); Carbon Dioxide 23 mmol/L (22-30); Chloride 115 mmol/L (98-107); Estimated CRCL calculation 38 ml/min; Estimated Glomerular Filt Rate 54; Glucose 79 mg/dL (65-105); Lipase 46 U/L (23-300); Potassium 3.6 mmol/L (3.4-5.0); Sodium 142 mmol/L (137-145)
[2020-11-15 16:03] LABS: Add Urine Microscopic? YES; Appearance Urine Clear (Clear); Bilirubin Urine Negative (Negative); Blood Urine 2+ (Negative); Color Urine Yellow (Yellow); Glucose Urine UA Negative (Negative); Ketones Urine Negative (Negative); Leukocyte Esterase Ur Negative LEU/UL (Negative); Mucus Urine Rare /lpf; Nitrate Urine Negative (Negative); Protein Urine 1+ mg/dL (Negative); Specific Grav Ur 1.019 (1.001-1.035); Squamous Epithelial Cell Urine Occasional /hpf (Few); Urobilinogen Urine Negative mg/dL (<2.0); WBC Urine 0-3 /hpf
--- NOTE | 2020-11-15 16:29 | PC.NURSE ---
Patient left before being seen by EDP at this time, advised risks of leaving. Patient states she will return if needed.
== END 2020-11-15 16:42 | disposition left against medical advice (07) ==
PROVIDERS: Emergency Provider Emergency Medicine; PCP Family Medicine
DX: R10.9 Unspecified abdominal pain (principal)
CPT/HCPCS: 36415; 80053; 81001; 83690; 85025; 93005; 99199

== ENCOUNTER → 2021-01-27 14:40 | Outpatient (REF) | payer MEDICARE, BC, SELFPAY | LOC: ANHLAB 14:40 | PROVIDERS: PCP Family Medicine; Visit Provider Nurse Practitioner | DX: C44.629 Squamous cell carcinoma of skin of left upper limb, including shoulder (principal) | CPT/HCPCS: 88305 ==

== ENCOUNTER 2021-01-29 10:45 | Outpatient (CLI) | payer MEDICARE, BC, SELFPAY ==
--- NOTE | ~2021-01-29 | MM_ITS ---
EXAMINATION: MM screening luis BI w charles HISTORY: Screening mammogram TECHNIQUE: Craniocaudal and mediolateral oblique 3-D tomosynthesis images were obtained and synthetic 2-D images were generated. CAD analysis was submitted and interpreted. COMPARISON: 01/19/2020, 11/16/2018, 11/09/2017 bilateral digital screening mammogram examinations BREAST PARENCHYMAL COMPOSITION: There are scattered areas of fibroglandular density. FINDINGS: Scattered bilateral benign calcifications. There is no evidence of suspicious mass, calcifi cation, or architectural distortion to suggest malignancy in either breast. There has been no suspici ous interval change. IMPRESSION: 1. No mammographic evidence of malignancy. 2. Recommend routine screening mammography in one year. BI-RADS Category 1: Negative Reviewed, dictated and finalized at location A.
== END 2021-01-29 10:46 | disposition home or self-care (01) ==
LOC: ANHIMG 10:49
PROVIDERS: PCP Family Medicine; Visit Provider Family Medicine
DX: Z12.31 Encounter for screening mammogram for malignant neoplasm of breast (principal)
CPT/HCPCS: 77063; 77067

== ENCOUNTER → 2021-05-06 13:00 | Outpatient (REF) | payer MEDICARE, BC, SELFPAY | LOC: ANHLAB 13:00 | PROVIDERS: PCP Family Medicine; Visit Provider Nurse Practitioner | DX: C44.622 Squamous cell carcinoma of skin of right upper limb, including shoulder (principal); L57.0 Actinic keratosis | CPT/HCPCS: 88305 ==

== ENCOUNTER → 2021-07-17 15:23 | Outpatient (REF) | payer MEDICARE, BC, SELFPAY | LOC: ANHLAB 15:23 | PROVIDERS: PCP Family Medicine; Visit Provider Surgery Plastic and Reconstructive Surgery | DX: L57.0 Actinic keratosis (principal); C76.0 Malignant neoplasm of head, face and neck; D22.39 Melanocytic nevi of other parts of face | CPT/HCPCS: 88305 ==

== ENCOUNTER 2022-03-03 09:51 | Outpatient (CLI) | payer MEDICARE, BC, SELFPAY ==
--- NOTE | ~2022-03-03 | MM_ITS ---
EXAMINATION: MM screening luis BI w charles HISTORY: Screening mammogram TECHNIQUE: Craniocaudal and mediolateral oblique 3-D tomosynthesis images were obtained and synthetic 2-D images were generated. CAD analysis was submitted and interpreted. COMPARISON: 01/29/2021, 01/19/2020, 11/16/2018 bilateral screening mammogram examinations BREAST PARENCHYMAL COMPOSITION: There are scattered areas of fibroglandular density. FINDINGS: There is no evidence of suspicious mass, calcification, or architectural distortion to sugg est malignancy in either breast. There has been no suspicious interval change. IMPRESSION: 1. No mammographic evidence of malignancy. 2. Recommend routine screening mammography in one year. BI-RADS Category 1: Negative Reviewed, dictated and finalized at location A.
== END 2022-03-03 09:52 | disposition home or self-care (01) ==
LOC: ANHIMG 09:53
PROVIDERS: PCP Family Medicine; Visit Provider Family Medicine
DX: Z12.31 Encounter for screening mammogram for malignant neoplasm of breast (principal)
CPT/HCPCS: 77063; 77067

== ENCOUNTER 2022-07-13 13:45 | Outpatient (NON) | payer MEDICARE, BC, SELFPAY | END 2022-07-13 13:46 | disposition home or self-care (01) | PROVIDERS: PCP Family Medicine; Visit Provider Surgery Plastic and Reconstructive Surgery | DX: L57.0 Actinic keratosis (principal) | CPT/HCPCS: 88305 ==

== ENCOUNTER 2022-12-14 09:56 | Outpatient (NON) | payer MEDICARE, BC, SELFPAY | END 2022-12-14 09:57 | disposition home or self-care (01) | LOC: ANHLAB 12-16 09:59 | PROVIDERS: PCP Family Medicine; Visit Provider Nurse Practitioner | DX: D49.2 Neoplasm of unspecified behavior of bone, soft tissue, and skin (principal); L85.8 Other specified epidermal thickening | CPT/HCPCS: 88305; 88342 ==

== ENCOUNTER 2023-01-18 13:56 | Outpatient (NON) | payer MEDICARE, BC, SELFPAY | END 2023-01-18 13:57 | disposition home or self-care (01) | LOC: ANHLAB 13:57 | PROVIDERS: PCP Family Medicine; Visit Provider Nurse Practitioner | DX: C44.91 Basal cell carcinoma of skin, unspecified (principal); C44.92 Squamous cell carcinoma of skin, unspecified | CPT/HCPCS: 88305; 88331 ==

== ENCOUNTER 2023-06-17 08:48 | Outpatient (CLI) | payer MEDICARE, BC, SELFPAY ==
--- NOTE | ~2023-06-17 | MM_ITS ---
EXAMINATION: MM screening luis BI w charles HISTORY: Screening TECHNIQUE: Craniocaudal and mediolateral oblique 3-D tomosynthesis images were obtained and synthetic 2-D images were generated. CAD analysis was submitted and interpreted. COMPARISON: Comparison to multiple prior studies sequentially, with oldest reviewed study dated 06/09. BREAST PARENCHYMAL COMPOSITION: There are scattered areas of fibroglandular density. FINDINGS: There is no evidence of suspicious mass, calcification, or architectural distortion to sugg est malignancy in either breast. There has been no suspicious interval change. IMPRESSION: 1. No mammographic evidence of malignancy. 2. Recommend routine screening mammography in one year. BI-RADS Category 1: Negative Reviewed, dictated and finalized at location A. D BANK TECHNOLOGIST
== END 2023-06-17 08:49 | disposition home or self-care (01) ==
PROVIDERS: PCP Family Medicine; Visit Provider Family Medicine
DX: Z12.31 Encounter for screening mammogram for malignant neoplasm of breast (principal)
CPT/HCPCS: 77063; 77067

== ENCOUNTER 2023-06-17 14:29 | Outpatient (NON) | payer MEDICARE, BC, SELFPAY | END 2023-06-17 14:30 | disposition home or self-care (01) | LOC: ANHLAB 14:31 | PROVIDERS: PCP Family Medicine; Visit Provider Nurse Practitioner | DX: D48.5 Neoplasm of uncertain behavior of skin (principal) | CPT/HCPCS: 77063; 77067; 88305 ==

== ENCOUNTER 2024-07-21 07:42 | Outpatient (CLI) | payer MEDICARE, BC, SELFPAY ==
--- NOTE | ~2024-07-21 | MM_ITS ---
EXAMINATION: MM screening luis BI w charles HISTORY: Screening TECHNIQUE: Craniocaudal and mediolateral oblique 3-D tomosynthesis images were obtained and synthetic 2-D images were generated. CAD analysis was submitted and interpreted. COMPARISON: Comparison to multiple prior studies sequentially, with oldest reviewed study dated 10/2017. BREAST PARENCHYMAL COMPOSITION: Not dense: There are scattered areas of fibroglandular density. FINDINGS: There is a new focal asymmetry medially in the left breast, anterior third. The right breas t is stable without evidence for malignancy. IMPRESSION: 1. New focal left breast asymmetry medially on CC view, anterior third. 2. Additional mammographic views and possible breast ultrasound are recommended. BI-RADS Category 0: Incomplete: Needs additional imaging evaluation. Reviewed, dictated and finalized at location B. WEIGHER IMPRESSION: 1. New focal left breast asymmetry medially on CC view, anterior third. 2. Additional mammographic views and possible breast ultrasound are recommended . BI-RADS Category 0: Incomplete: Needs additional imaging evaluation.
--- OUTSIDE RECORDS SUMMARY | 2024-07-21 11:59 | XMS_ITS ---
Author Organization [facility] dicine Address [address] [place] [id number] Care Team Providers Care Infant Nanny Name Role Phone Gwen Yancey Primary Care Provider [phone] REASON FOR VISIT punch - 2 lesions Medications Medication SIG (Take, Route, Frequency, Duration) Notes Start Date End Date Status Reclast 5 MG/100ML 5 Intravenous; Duration: 0 06/29/2023 Active Metoprolol Succinate ER 50 MG 1 Oral every day; Duration: 0 07/27/2022 Active Furosemide 20 MG 1 Oral every day; Duration: 0 12/07/2023 Active Zetia 10 MG 1 Oral every day; Duration: 0 12/20/2020 Active Aspirin Adult Low Strength 81 MG 2 Oral every day; Duration: 0 05/29/2021 Active Vitamin D (Ergocalciferol) 1.25 MG (97707 UT) 1 Oral once a week; Duration: 0 11/03/2023 Active Spironolactone 25 MG 1 Oral every day; Duration: 0 12/07/2023 Active Ferrous Sulfate 325 (65 Fe) MG 1 Oral three times a day; Duration: 0 12/20/2020 Active Entyvio 300 MG Intravenous; Duration: 0 05/13/2023 Active Chantix 1 MG 1 Oral two times a day; Duration: 0 *Reorder from [facility] for eRx and Interaction Alerts* 05/30/2024 Active Vitamin D3 50 MCG (2000 UT) 1 Oral every day; Duration: 0 12/20/2020 Active Chantix Starting Month Jose 0.5 MG X 11 & 1 MG X 42 Oral; Duration: 0 *Reorder from [facility] for eRx and Interaction Alerts* 05/30/2024 Active Folic Acid 0.8 MG 1 Oral every day; Duration: 0 12/20/2020 Active Encounters Encounter Location Date Provider Diagnosis [facility] [address] [place] [address] 07/21/2024 Gwen Yancey Plan Of Treatment Next Appt Details Provider Name:Gwne Yancey , 07/21/2024 03:00:00 PM, [address], [place], [address], [phone] Provider Name:Gwen Yancey , 11/02/2024 11:30:00 AM, [address], [place], [address], [phone] Provider Name:Gweningrid Yancey , 05/21/2025 02:00:00 PM, [address], [place], [address], [phone] Progress Notes * BYERS Eliana CDOB: [birth year] (78 yo F)Acc No.[id number]:07/21/2024 Progress Note Patient:?Jakob Eliaan C Provider:?Gwen Yancey MD :1945???Age:78 Y???Sex:Female D ate:07/21/2024 Phone: Address:[address] [place] [address], [phone] Subjective: * Chief Complaints: * ???Punch - 2 lesions * Active Problem List H60.92 Unspecified otitis e xterna, left ear Onset Date:05/24/2023/U Status:confirmedClinical Status:active H91.90 Unspecified hearing loss, unspecified ear Onset Date:10/27/2023/U Status:confirmedClinical Status:active I10 Essential (primary) hypertension Onset Date:03/23/2024/U Status:confirmedClinical Status:active I48.91 Unspecified atrial f ibrillation Onset Date:05/31/2024/U Status:confirmedClinical Status:active I50.32 Chronic diastolic (c ongestive) heart failure Onset Date:09/21/2022/U Status:confirmedClinical Status:active I67.81 Acute cerebrovascula r insufficiency Onset Date:10/27/2023/U Status:confirmedClinical Status:active K50.10 Crohn's disease of l arge intestine without complications Onset Date:05/30/2024U Status:confirmedClinical Status:active K50.90 Crohn's disease, uns pecified, without complications Onset Date:03/27/2024U Status:confirmedClinical Status:active K62.4 Stenosis of anus and rectum Onset Date:03/04/2021U Status:confirmedClinical Status:active K91.2 Postsurgical malabso rption, not elsewhere classified Onset Date:07/25/2022U Status:confirmedClinical Status:active L72.9 Follicular cyst of t he skin and subcutaneous tissue, unspecified Onset Date:03/11/2023U Status:confirmedClinical Status:active M19.90 Unspecified osteoart hritis, unspecified site Onset Date:10/08/2022U Status:confirmedClinical Status:active M25.561 Pain in right knee Onset Date:09/21/2022U Status:confirmedClinical Status:active M54.6 Pain in thoracic spi ne Onset Date:10/27/2023U Status:confirmedClinical Status:active M85.80 Other specified diso rders of bone density and structure, unspecified site Onset Date:11/13/2021U Status:confirmedClinical Status:active R06.02 Shortness of breath Onset Date:07/27/2022U Status:confirmedClinical Status:active R09.89 Other specified symp toms and signs involving the circulatory and respiratory systems Onset Date:11/13/2021U Status:confirmedClinical Status:active R42 Dizziness and giddin ess Onset Date:11/22/2023U Status:confirmedClinical Status:active Z12.83 Encounter for screen ing for malignant neoplasm of skin Onset Date:10/27/2023U Status:confirmedClinical Status:active K91.30 Postprocedural intes tinal obstruction, unspecified as to partial versus complete Onset Date:03/04/2021U Status:confirmedClinical Status:active N18.31 Chronic kidney disea se, stage 3a Onset Date:11/22/2023U Status:confirmedClinical Status:active Z68.26 Body mass index (BMI ) 26.0-26.9, adult Onset Date:05/30/2024U Status:confirmedClinical Status:active M48.061 Spinal stenosis, lum bar region without neurogenic claudication Onset Date:09/21/2022U Status:confirmedClinical Status:active Z95.0 Presence of cardiac pacemaker Onset Date:05/30/2024U Status:confirmedClinical Status:active Z72.0 Tobacco use Onset Date:05/31/2024U Status:confirmedClinical Status:active Z00.00 Encounter for [facility] l adult medical examination without abnormal findings Onset Date:05/10/2023U Status:confirmedClinical Status:active S51.812A Laceration without f oreign body of left forearm, initial encounter Onset Date:11/22/2023U Status:confirmedClinical Status:active R60.9 Edema, unspecified Onset Date:07/27/2022U Status:confirmedClinical Status:active R20.2 Paresthesia of skin Onset Date:05/30/2024U Status:confirmedClinical Status:active R01.1 Cardiac murmur, unsp ecified Onset Date:04/04/2021U Status:confirmedClinical Status:active M79.672 Pain in left foot Onset Date:09/21/2022U Status:confirmedClinical Status:active M70.61 Trochanteric bursiti s, right hip Onset Date:08/11/2022U Status:confirmedClinical Status:active M54.9 Dorsalgia, unspecifi ed Onset Date:08/11/2022U Status:confirmedClinical Status:active M47.816 Spondylosis without myelopathy or radiculopathy, lumbar region Onset Date:08/11/2022U Status:confirmedClinical Status:active M25.562 Pain in left knee Onset Date:09/21/2022U Status:confirmedClinical Status:active M18.12 Unilateral primary o steoarthritis of first carpometacarpal joint, left hand Onset Date:12/12/2021U Status:confirmedClinical Status:active I71.2 Thoracic aortic aneu rysm, without rupture Onset Date:11/13/2021U Status:confirmedClinical Status:active I44.2 Atrioventricular blo ck, complete Onset Date:07/25/2022U Status:confirmedClinical Status:active I35.1 Nonrheumatic aortic (valve) insufficiency Onset Date:11/22/2023U Status:confirmedClinical Status:active I34.1 Nonrheumatic mitral (valve) prolapse Onset Date:11/13/2021U Status:confirmedClinical Status:active H61.20 Impacted cerumen, un specified ear Onset Date:05/24/2023/U Status:confirmedClinical Status:active H54.7 Unspecified visual l oss Onset Date:10/27/2023U Status:confirmedClinical Status:active G47.33 Obstructive sleep ap brday (adult) (pediatric) Onset Date:07/25/2022U Status:confirmedClinical Status:active F17.200 Nicotine dependence, unspecified, uncomplicated Onset Date:05/07/2023U Status:confirmedClinical Status:active E87.6 Hypokalemia Onset Date:11/16/2022U Status:confirmedClinical Status:active E83.51 Hypocalcemia Onset Date:05/29/2021U Status:confirmedClinical Status:active E83.42 Hypomagnesemia Onset Date:08/11/2022U Status:confirmedClinical Status:active E78.5 Hyperlipidemia, unsp ecified Onset Date:05/30/2024U Status:confirmedClinical Status:active E55.9 Vitamin D deficiency , unspecified Onset Date:03/27/2024U Status:confirmedClinical Status:active E53.8 Deficiency of other specified B group vitamins Onset Date:03/30/2024/U Status:confirmedClinical Status:active E16.2 Hypoglycemia, unspec ified Onset Date:11/01/2023/U Status:confirmedClinical Status:active D64.9 Anemia, unspecified Onset Date:03/27/2024U Status:confirmedClinical Status:active D48.5 Neoplasm of uncertai n behavior of skin Onset Date:05/30/2024/U Status:confirmedClinical Status:active M81.0 Age-related osteopor osis without current pathological fracture Onset Date:03/11/2023/U Status:confirmedClinical Status:active L82.1 Other seborrheic ker atosis Onset Date:10/27/2023/U Status:confirmedClinical Status:active K92.1 Melena Onset Date:11/22/2023/U Status:confirmedClinical Status:active Z68.25 Body mass index (BMI ) 25.0-25.9, adult Onset Date:05/10/2023/U Status:confirmedClinical Status:active I71.20 Thoracic aortic aneu rysm, without rupture, unspecified Onset Date:05/10/2023/U Status:confirmedClinical Status:active R29.898 Other symptoms and s igns involving the musculoskeletal system Onset Date:07/27/2022/U Status:confirmedClinical Status:active * Medications:?TakingVitamin D 3 50 MCG (1999 UT) Capsule 1 Oral every day Chantix Starting Month Jose 0.5 MG X 11 & 1 MG X 42 Tablet Oral , Notes to Pharmacist: *Reorder from [facility] for eRx and Interaction Alerts*Folic Acid 0.8 MG Capsule 1 Oral every day Spironolactone 25 MG Tablet 1 Oral every day Ferrous Sulfate 325 (65 Fe) MG Tablet 1 Oral three times a day Entyvio 300 MG Solution Reconstituted Intravenous Chantix 1 MG Tablet 1 Oral two times a day , Notes to Pharmacist: *Reorder from [facility] for eRx and Interaction Alerts*Vitamin D (Ergocalciferol) 1.25 MG ( UT) Capsule 1 Oral once a week Reclast 5 MG/100ML Solution 5 Intravenous Metoprolol Succinate ER 50 MG Tablet Extended Release 24 Hour 1 Oral every day Furosemide 20 MG Tablet 1 Oral every day Zetia 10 MG Tablet 1 Oral every day Aspirin Adult Low Strength 81 MG Tablet Delayed Release 2 Oral every day Taking Vitamin D3 50 MCG (1999 UT) Capsule 1 Oral every day Taking Chantix Starting Month Jose 0.5 MG X 11 & 1 MG X 42 Tablet Oral , Notes to Pharmacist: *Reorder from [facility] for eRx and Interaction Alerts*Taking Folic Acid 0.8 MG Capsule 1 Oral every day Taking Spironolactone 25 MG Tablet 1 Oral every day Taking Ferrous Sulfate 325 (65 Fe) MG Tablet 1 Oral three times a day Taking Entyvio 300 MG Solution Reconstituted Intravenous Taking Chantix 1 MG Tablet 1 Oral two times a day , Notes to Pharmacist: *Reorder from [facility] for eRx and Interaction Alerts*Taking Vitamin D (Ergocalciferol) 1.25 MG (03521 UT) Capsule 1 Oral once a week Taking Reclast 5 MG/100ML Solution 5 Intravenous Taking Metoprolol Succinate ER 50 MG Tablet Extended Release 24 Hour 1 Oral every day Taking Furosemide 20 MG Tablet 1 Oral every day Taking Zetia 10 MG Tablet 1 Oral every day Taking Aspirin Adult Low Strength 81 MG Tablet Delayed Release 2 Oral every day Billing Information: * Procedure Codes:? * Electronic signature of Mitali Yancey on 07/21/2024 at 11:59 AM REHABILITATION MEDICINE PHYSICIAN Sign off status: Pending * Provider:?Gwen Yancey MD Date:?07/21 Generated for Momo harrison/Ellen/Debora on:?07/21/2024 11:59 AM REHABILITATION MEDICINE PHYSICIAN
--- OUTSIDE RECORDS SUMMARY | 2024-07-21 11:59 | XMS_ITS ---
Author Organization [facility] Address [address] [place] [address] Care Team Providers Care Floor Person Name Role Phone Gwen Yancey Primary Care Provider [phone] Migration, Provider Unavailable Unavailable Allergies Allergen (clinical drug ingredient) Drug/Non Drug Allergy documented on EMR Reaction Allergy Type Onset Date Status naproxen Naproxen hives Drug Allergy 04/01/2021 Active REASON FOR VISIT EMR-Miki Medications Medication SIG (Take, Route, Frequency, Duration) Notes Start Date End Date Status Chantix Starting Month Jose 0.5 MG X 11 & 1 MG X 42 Oral; Duration: 0 [facility]* 05/30/2024 Active Chantix 1 MG 1 Oral two times a day; Duration: 0 *[facility]* 05/30/2024 Active Metoprolol Succinate ER 50 MG 1 Oral every day; Duration: 0 07/27/2022 Active Vitamin D3 50 MCG (2000 UT) 1 Oral every day; Duration: 0 12/20/2020 Active Vitamin D (Ergocalciferol) 1.25 MG (11971 UT) 1 Oral once a week; Duration: 0 11/03/2023 Active Entyvio 300 MG Intravenous; Duration: 0 05/13/2023 Active Reclast 5 MG/100ML 5 Intravenous; Duration: 0 06/29/2023 Active Spironolactone 25 MG 1 Oral every day; Duration: 0 12/07/2023 Active Zetia 10 MG 1 Oral every day; Duration: 0 12/20/2020 Active Ferrous Sulfate 325 (65 Fe) MG 1 Oral three times a day; Duration: 0 12/20/2020 Active Folic Acid 0.8 MG 1 Oral every day; Duration: 0 12/20/2020 Active Aspirin Adult Low Strength 81 MG 2 Oral every day; Duration: 0 05/29/2021 Active Furosemide 20 MG 1 Oral every day; Duration: 0 12/07/2023 Active Encounters Encounter Location Date Provider Diagnosis [facility] [place] [place] [address] 07/09/2024 Provider Migration Plan Of Treatment Next Appt Details Provider Name:Gwen Yancey , 07/21/2024 03:00:00 PM, [address], [place], [address], [phone] Provider Name:Gwen Yancey , 11/02/2024 11:30:00 AM, [address], [place], [address], [phone] Provider Name:Gwen Yancey , 05/21/2025 02:00:00 PM, [address], [place], [address], [id number] Progress Notes * Eliana BYERS CDOB: [birth year] (78 yo F)Acc No.[id number]:07/09/2024 Patient:?Eliana BYERS :1945???Age:78 Y???Sex:Female Phone: Address:[address] [place] [address], [place], [address] Subjective: * Chief Complaints: * ???EMR-Miki * Medical History:? * Surgical History:? intestinal surgery ,notes : x3 for Crohn's. ? Pacemaker implantation ? Gastric Bypass ? Ablation ,notes : x2 failed ? Cataract removal ,notes : bilateral ? hysterectomy ? cholecystectomy ? * Hospitalization/Major Diagno stic Procedure:? * Family History:?Father: Alzh eimer's Disease, C oronary Artery Disease (CAD).?Mother: Coronary Artery Disease (CAD).?Sister: Colon Cancer.?Aunt: Colon Cancer.? * Social History:?Migrated Social History:?Migrated Social History: Frequency of drinks:1-4 drinks per week ,notes : Avg 1 drink per day several times per week.,Tobacco history:Current some days smoker ,notes : Quit 2023. Started again 1 month ago 05/30/24. * Medications:?TakingVitamin D 3 50 MCG (1999) Capsule 1 Oral every day Chantix Starting Month Jose 0.5 MG X 11 & 1 MG X 42 Tablet Oral , Notes to Pharmacist: *Reorder from [facility] for eRx and Interaction Alerts*Folic Acid 0.8 MG Capsule 1 Oral every day Spironolactone 25 MG Tablet 1 Oral every day Ferrous Sulfate 325 (65 Fe) MG Tablet 1 Oral three times a day Entyvio 300 MG Solution Reconstituted Intravenous Chantix 1 MG Tablet 1 Oral two times a day , Notes to Pharmacist: *Reorder from [facility] for eRx and Interaction Alerts*Vitamin D (Ergocalciferol) 1.25 MG (34916 UT) Capsule 1 Oral once a week Reclast 5 MG/100ML Solution 5 Intravenous Metoprolol Succinate ER 50 MG Tablet Extended Release 24 Hour 1 Oral every day Furosemide 20 MG Tablet 1 Oral every day Zetia 10 MG Tablet 1 Oral every day Aspirin Adult Low Strength 81 MG Tablet Delayed Release 2 Oral every day Taking Vitamin D3 50 MCG (2000 UT) Capsule 1 Oral every day Taking Chantix Starting Month Jose 0.5 MG X 11 & 1 MG X 42 Tablet Oral , Notes to Pharmacist: *Reorder from [facility] for eRx and Interaction Alerts*Taking Folic Acid 0.8 MG Capsule 1 Oral every day Taking Spironolactone 25 MG Tablet 1 Oral every day Taking Ferrous Sulfate 325 (65 Fe) MG Tablet 1 Oral three times a day Taking Entyvio 300 MG Solution Reconstituted Intravenous Taking Chantix 1 MG Tablet 1 Oral two times a day , Notes to Pharmacist: *Reorder from [facility] for eRx and Interaction Alerts*Taking Vitamin D (Ergocalciferol) 1.25 MG (18254 UT) Capsule 1 Oral once a week Taking Reclast 5 MG/100ML Solution 5 Intravenous Taking Metoprolol Succinate ER 50 MG Tablet Extended Release 24 Hour 1 Oral every day Taking Furosemide 20 MG Tablet 1 Oral every day Taking Zetia 10 MG Tablet 1 Oral every day Taking Aspirin Adult Low Strength 81 MG Tablet Delayed Release 2 Oral every day * Allergies:?Naproxen: hives - Allergy - Onset Date 04/01/2021 Objective: * Physical Examination:? Plan: * Treatment: * Procedure Codes:? Billing Information: * Visit Code:? * Procedure Codes:? * * Date:?
--- OUTSIDE RECORDS SUMMARY | 2024-07-21 11:59 | XMS_ITS ---
Author Organization [facility] [place] Address [address] [place] [address] Care Team Providers Care Terrazzo Tile Setter Name Role Phone Gwen Yancey Primary Care Provider [phone] Migration, Provider Unavailable Unavailable REASON FOR VISIT EMR-[facility] Encounters Encounter Location Date Provider Diagnosis [facility] [address] [place] [address] 07/08/2024 Provider Migration Plan Of Treatment Medication Medication Name Sig Start Date Stop Date Notes Colchicine 0.6 MG 1 Oral every day; Duration: 14 01/21/2022 01/20/2022 ,discontinuereason: Refilled Magnesium Oxide 400 MG 1 Oral every day; Duration: 0 12/20/2020 05/09/2023 ,discontinuereason: Discontinued Metoprolol Succinate ER 25 MG 2 Oral two times a day; Duration: 0 12/23/2021 09/20/2022 ,discontinuereason: Discontinued Aspirin Adult Low Strength 81 MG 1 Oral every day; Duration: 0 12/20/2020 03/03/2021 changed to full strength,discontinu ereason:Discontinue d Calcium 600 600 mg calcium (1,500 mg) 1 BY MOUTH two times a day; Duration: 30 11/03/2023 01/01/2024 *Pick strength-form from [employer] for eRX* traMADol HCl 50 MG 1 Oral Q6H; Duration: 0 09/21/2022 09/21/2022 ,PRN Reason:for pain azaTHIOprine 50 MG 2 Oral every day; Duration: 0 12/20/2020 07/26/2022 ,discontinuereason: Discontinued Potassium Chloride ER 20 MEQ 1 Oral two times a day; Duration: 0 05/07/2023 05/07/2023 Prolia 60 MG/ML 1 Subcutaneous; Duration: 0 05/10/2023 03/26/2024 On reclast,discontinue reason:Discontinued Diclofenac Sodium 1 % 4 External four times a day; Duration: 30 09/21/2022 10/20/2022 hydroCHLOROthiazide 25 MG 1 Oral every d ay; Duration: 03/04/2021 03/31/2021 ,discontinuereason: Rx Change Prguqkrn-Bcvdwgnfv-CU 3.5-78741-3 4 Otic three times a day; Duration: 05/24/2023 05/30/2023 Magnesium Oxide 400 mg (241.3 mg magnesium) 1 two times a day; Duration: 11/10/2023 12/09/2023 *Pick strength-form from [employer] for eRX* Vitamin D (Ergocalciferol) 1.25 MG (00339 UT) 1 Oral once a week; Duration: 0 11/10/2023 11/10/2023 SYRINGE WITH NEEDLE DISP 1 mL 25 gauge x 1 MISCELLANEOUS; Duration: 0 03/25/2021 03/25/2021 *Reorder from [employer] for eRx and Interaction Alerts* Clopidogrel Bisulfate 75 MG 1 Oral every day; Duration: 0 12/20/2020 03/03/2021 changed to ASA due to coughing up blood,discontinuere ason:Discontinued Clotrimazole 1 % External; Duration: 0 05/24/2023 05/29/2024 ,discontinuereason: Discontinued Colchicine 0.6 MG 1 Oral every day; Duration: 14 01/21/2022 05/06/2023 ,discontinuereason: Discontinued Aspirin 325 MG 1 Oral every day; Duration: 0 03/04/2021 05/28/2021 ,discontinuereason: Discontinued predniSONE 20 MG 1 Oral every day; Duration: 3 12/12/2021 12/14/2021 Cyanocobalamin 1000 MCG/ML Injection Monthly; Duration: 0 12/20/2020 03/10/2021 Rx Refill Request,discontinue reason:Refilled Furosemide 20 MG 1 Oral every day; Duration: 0 07/27/2022 07/27/2022 ,discontinuereason: Discontinued Doxycycline Monohydrate 100 MG 1 Oral two times a day; Duration: 12/20/2020 12/29/2020 Furosemide 40 MG 1.5 Oral every day; Duration: 30 06/17/2023 12/06/2023 Decreased to 20mg by benefits processor.,disco ntinuereason:Discon tinued Allopurinol 100 MG 1 Oral every day; Duration: 90 02/16/2022 07/26/2022 ,discontinuereason: Discontinued Lasix 20 MG 1 Oral every day; Duration: 0 04/01/2021 11/12/2021 ,discontinuereason: Discontinued Potassium Chloride ER 10 MEQ 2 Oral every day; Duration: 0 12/20/2020 03/03/2021 dose increase,discontinu ereason:Discontinue d Next Appt Details Provider Name:Gwen Yancey , 07/21/2024 03:00:00 PM, [facility], [place], [address], [phone] Provider Name:Gwen Yancey , 11/02/2024 11:30:00 AM, [facility], [place], [address], [phone] Provider Name:Gwen Naye , 05/21/2025 02:00:00 PM, [employer], [place], [address], [phone] Progress Notes * Arcadio BYERSothy CDOB: [birth year] (78 yo F)Acc No.[id number]:07/08/2024 Patient:?Eliana BYERS :1945???Age:78 Y???Sex:Female Phone: Address:[address] [place] [address], [place], [address] * Refills? Stop azaTHIOprine Tablet, 50 MG, Oral, 2, every day, 0 Stop Diclofenac Sodium Gel, 1 %, External, 480, 4, four times a day, 30 Stop traMADol HCl Tablet, 50 MG, Oral, 30, 1, Q6H, 0 Stop Allopurinol Tablet, 100 MG, Oral, 90, 1, every day, 90 Stop Cyanocobalamin Solution, 1000 MCG/ML, Injection, Monthly, 0 Stop Furosemide Tablet, 20 MG, Oral, 1, every day, 0 Stop Metoprolol Succinate ER Tablet Extended Release 24 Hour, 25 MG, Oral, 1, every day, 0 Stop Clotrimazole Solution, 1 %, External, 10, 0 Stop Magnesium Oxide Tablet(s), 400 mg (241.3 mg magnesium), 60, 1, two times a day, 30 Stop Potassium Chloride ER Tablet Extended Release, 20 MEQ, Oral, 360, 1, two times a day, 0 Stop SYRINGE WITH NEEDLE DISP SYRINGE, EMPTY DISPOSABLE, 1 mL 25 gauge x 1 , MISCELLANEOUS, 10, 0 Stop Lasix Tablet, 20 MG, Oral, 1, every day, 0 Stop Potassium Chloride ER Tablet Extended Release, 10 MEQ, Oral, 2, every day, 0 Stop Colchicine Capsule, 0.6 MG, Oral, 14, 1, every day, 14 Stop Furosemide Tablet, 40 MG, Oral, 90, 1, every day, 0 Stop Magnesium Oxide Tablet, 400 MG, Oral, 1, every day, 0 Stop Aspirin Adult Low Strength Tablet Delayed Release, 81 MG, Oral, 1, every day, 0 Stop Potassium Chloride ER Tablet Extended Release, 20 MEQ, Oral, 180, 2, every day, 90 Stop Doxycycline Monohydrate Capsule, 100 MG, Oral, 20, 1, two times a day, 10 Stop Furosemide Tablet, 40 MG, Oral, 45, 1.5, every day, 30 Stop predniSONE Tablet, 20 MG, Oral, 3, 1, every day, 3 Stop Vitamin D (Ergocalciferol) Capsule, 1.25 MG (94445 UT), Oral, 1, every day, 0 Stop Prolia Solution Prefilled Syringe, 60 MG/ML, Subcutaneous, 0 Stop Furosemide Tablet, 40 MG, Oral, 45, 1.5, every day, 30 Stop Magnesium Oxide Tablet, 400 MG, Oral, 30, 1, every day, 30 Stop Metoprolol Succinate ER Tablet Extended Release 24 Hour, 25 MG, Oral, 2, two times a day, 0 Stop Potassium Chloride ER Tablet Extended Release, 20 MEQ, Oral, 360, 1, three times a day, 0 Stop Prolia Solution Prefilled Syringe, 60 MG/ML, Subcutaneous, 1, 1, 0 Stop Allopurinol Tablet, 100 MG, Oral, 30, 1, every day, 30 Stop Furosemide Tablet, 40 MG, Oral, 90, 1, every day, 0 Stop Potassium Chloride ER Tablet Extended Release, 20 MEQ, Oral, 360, 1, two times a day, 0 Stop Calcium 600 Tablet(s), 600 mg calcium (1,500 mg), BY MOUTH, 60, 1, two times a day, 30 Stop Furosemide Tablet, 40 MG, Oral, 45, 1.5, every day, 30 Stop Clopidogrel Bisulfate Tablet, 75 MG, Oral, 1, every day, 0 Stop Xdebaelw-Ykznisojr-JX Suspension, 3.5-89654-5 , Otic, 1, 4, three times a day, 7 Stop Vitamin D (Ergocalciferol) Capsule, 1.25 MG (46384 UT), Oral, 8, 1, once a week, 0 Stop Metoprolol Succinate ER Tablet Extended Release 24 Hour, 25 MG, Oral, 2, every night at bedtime, 0 Stop SYRINGE WITH NEEDLE DISP SYRINGE, EMPTY DISPOSABLE, 1 mL 25 gauge x 1 , MISCELLANEOUS, 6, 0 Stop Aspirin Tablet Delayed Release, 325 MG, Oral, 1, every day, 0 Stop Colchicine Tablet, 0.6 MG, Oral, 14, 1, every day, 14 Stop Cyanocobalamin Solution, 1000 MCG/ML, Injection, 10, 1, Monthly, 0 Stop Furosemide Tablet, 40 MG, Oral, 90, 1, every day, 0 Stop hydroCHLOROthiazide Tablet, 25 MG, Oral, 30, 1, every day, 30 Stop Zajdkldq-Njowgnaen-KR Suspension, 3.5-98555-1 , Otic, 1, 4, three times a day, 7 Stop traMADol HCl Tablet, 50 MG, Oral, 30, 1, Q6H, 0 Subjective: * Chief Complaints: * ???[facility] [place] [facility] * Medical History:? * Surgical History:? * Hospitalization/Major Diagno stic Procedure:? * Medications:? Objective: * Physical Examination:? Plan: * Treatment: * Procedure Codes:? Billing Information: * Visit Code:? * Procedure Codes:? * * Date:?
--- OUTSIDE RECORDS SUMMARY | 2024-07-21 12:00 | XMS_ITS | Patient Health Record ---
Author Organization [facility] dicine Address [address] [place] [address] Care Team Providers Care Senior Java Web Developer Name Role Phone Yancey Gwen Primary Care Provider [phone] Leann Torres Unavailable [phone] Migration, Provider Unavailable Unavailable Results Component Value Reference Range Notes CBC w/ Diff Reviewed date:12/07/2023 12:00:00 AM Interpretation: Performing Lab: Notes/Report: Baso Absolute 0.1 x10*3/mcL Basophil Auto 0.9 % Eos Absolute 0.2 x10*3/mcL Eosinophil Auto 3.4 % Hct 32.2 % Hgb 10.6 g/dL Lymph Absolute 1.4 x10*3/mcL Lymph Auto 21.8 % MCH 32.4 pg MCHC 33.0 g/dL MCV 98.1 fL Beaver Absolute 0.5 x10*3/mcL Beaver Auto 7.7 % MPV 9.2 fL Neutro Absolute 4.3 x10*3/mcL Neutro Auto 66.2 % Platelets 168 K/mcL RBC 3.28 x10*6/mcL RDW 14.4 % WBC 6.5 K/mcL Comprehensive Metabolic Pane l Reviewed date:12/07/2023 12:00:00 AM Interpretation: Performing Lab: Notes/Report: Albumin Lvl 3.8 g/dL Albumin/Globulin Ratio 1.6 Alk Phos 134 unit/L ALT 20 unit/L ANION GAP 7.0 mmol/L AST 18 unit/L Bilirubin Total 0.9 mg/dL BUN 21 mg/dL Calcium Lvl 7.9 mg/dL Chloride Lvl 113 mmol/L CO2 24 mmol/L Creatinine Lvl 1.16 mg/dL eGFR CKD-EPI 48 mL/min/1.73 m2 Glucose Lvl 80 mg/dL Potassium Lvl 3.5 mmol/L Protein Total 6.1 g/dL Sodium Lvl 144 mmol/L Hemoglobin A1c {Glycosylated } Reviewed date:11/01/2023 12:00:00 AM Interpretation: Performing Lab: Notes/Report: eAvg Glucose 85 mg/dL Hemoglobin A1c 4.6 % Lipid Panel {Chol, Trig, HDL , LDL} Reviewed date:12/07/2023 12:00:00 AM Interpretation: Performing Lab: Notes/Report: Chol/HDL 3 Cholesterol Total 135 mg/dL Coronary Risk 39 % HDL 53 mg/dL LDL 67 mg/dL NON HDL CHOLESTEROL 82 mg/dL Triglycerides 76 mg/dL Magnesium Reviewed date:12/07/2023 12:00:00 AM Interpretation: Performing Lab: Notes/Report: Magnesium Lvl 1.1 mg/dL T4 Free Reviewed date:12/07/2023 12:00:00 AM Interpretation: Performing Lab: Notes/Report: T4 Free 0.85 ng/dL Thyroid Stimulating Hormone Reviewed date:12/07/2023 12:00:00 AM Interpretation: Performing Lab: Notes/Report: TSH 3.43 mcIU/mL Vitamin B12 Reviewed date:12/07/2023 12:00:00 AM Interpretation: Performing Lab: Notes/Report: B12 Lvl 1493 pg/mL Vitamin D 25 Hydroxy Reviewed date:12/07/2023 12:00:00 AM Interpretation: Performing Lab: Notes/Report: Vitamin D 25 OH 17 ng/mL CBC w/ Diff Reviewed date:03/28/2024 12:00:00 AM Interpretation: Performing Lab: Notes/Report: Baso Absolute 0.1 x10*3/mcL Basophil Auto 0.9 % Eos Absolute 0.3 x10*3/mcL Eosinophil Auto 4.3 % Hct 35.0 % Hgb 11.5 g/dL Lymph Absolute 1.4 x10*3/mcL Lymph Auto 20.9 % MCH 32.0 pg MCHC 32.8 g/dL MCV 97.6 fL Beaver Absolute 0.5 x10*3/mcL Beaver Auto 7.9 % MPV 9.9 fL Neutro Absolute 4.4 x10*3/mcL Neutro Auto 66.0 % Platelets 159 K/mcL RBC 3.59 x10*6/mcL RDW 14.4 % WBC 6.7 K/mcL Comprehensive Metabolic Pane l Reviewed date:03/28/2024 12:00:00 AM Interpretation: Performing Lab: Notes/Report: Albumin Lvl 3.6 g/dL Albumin/Globulin Ratio 1.4 Alk Phos 117 unit/L ALT 18 unit/L ANION GAP 7.7 mmol/L AST 21 unit/L Bilirubin Total 0.7 mg/dL BUN 13 mg/dL Calcium Lvl 8.5 mg/dL Chloride Lvl 110 mmol/L CO2 25 mmol/L Creatinine Lvl 1.02 mg/dL eGFR CKD-EPI 56 mL/min/1.73 m2 Glucose Lvl 75 mg/dL Potassium Lvl 3.7 mmol/L Protein Total 6.2 g/dL Sodium Lvl 143 mmol/L Ferritin Reviewed date:03/28/2024 12:00:00 AM Interpretation: Performing Lab: Notes/Report: Ferritin Lvl 58.6 ng/mL Iron Level and TIBC Reviewed date:03/28/2024 12:00:00 AM Interpretation: Performing Lab: Notes/Report: Iron Lvl 90 mcg/dL Iron Sat 28 % TIBC 319 mcg/dL Transferrin 228 mg/dL Magnesium Reviewed date:03/28/2024 12:00:00 AM Interpretation: Performing Lab: Notes/Report: Magnesium Lvl 1.2 mg/dL PTHI No Calcium Reviewed date:03/28/2024 12:00:00 AM Interpretation: Performing Lab: Notes/Report: Parathyroid Hormone, Intact 62.8 pg/mL T4 Free Reviewed date:03/28/2024 12:00:00 AM Interpretation: Performing Lab: Notes/Report: T4 Free 0.88 ng/dL Thyroid Stimulating Hormone Reviewed date:03/28/2024 12:00:00 AM Interpretation: Performing Lab: Notes/Report: TSH 3.35 mcIU/mL Vitamin B12 Reviewed date:03/28/2024 12:00:00 AM Interpretation: Performing Lab: Notes/Report: Vitamin B12 Lvl 1074 pg/mL Vitamin D 25 Hydroxy Reviewed date:03/28/2024 12:00:00 AM Interpretation: Performing Lab: Notes/Report: Vitamin D 25 OH 30 ng/mL AUDIT-C Reviewed date:05/30/2024 12:00:00 AM Interpretation: Performing Lab: Notes/Report: How many standard drinks con taining alcohol do you have on a typical day? 1 or 2 drinks How often do you have 6 or m ore drinks on 1 occasion Never How often do you have a drin k containing alcohol Two to Three times per week Total Score 3 Patient Health Questionnaire (PHQ9) Reviewed date:05/30/2024 12:00:00 AM Interpretation: Performing Lab: Notes/Report: Feeling bad about yourself o r that you are a failure or have let yourself or your family down 0 Feeling down, depressed, or hopeless 0 Feeling tired or having olivia le energy 2 If you checked off any probl ems, how difficult Not difficult at all have these problems made it for you to do your work, take care of things at home, or get along with other people? 0 Little interest or pleasure in doing things 3 Moving or speaking so slowly that other people could have noticed or the opposite being so figety or restless that you have been moving around a lot more than usual 0 Poor appetite or overeating 0 Thoughts that you would be b candice off , or of hurting yourself 0 Trouble concentrating on thi ngs, such as reading the newspaper or watching television 0 Trouble falling or staying a sleep, or sleeping too much 0 Pathology Tissue Request Reviewed date:07/05/2024 12:00:00 AM Interpretation: Performing Lab: Notes/Report: Tissue Request See Below Reason For Referral No Information Medications Medication SIG (Take, Route, Frequency, Duration) Notes Start Date End Date Status Ferrous Sulfate 325 (65 Fe) MG 1 Oral three times a day; Duration: 0 12/20/2020 Active Entyvio 300 MG Intravenous; Duration: 0 05/13/2023 Active Chantix 1 MG 1 Oral two times a day; Duration: 0 *Reorder from [facility] for eRx and Interaction Alerts* 05/30/2024 Active Vitamin D (Ergocalciferol) 1.25 MG (93934 UT) 1 Oral once a week; Duration: 0 11/03/2023 Active Reclast 5 MG/100ML 5 Intravenous; Duration: 0 06/29/2023 Active Metoprolol Succinate ER 50 MG 1 Oral every day; Duration: 0 07/27/2022 Active Furosemide 20 MG 1 Oral every day; Duration: 0 12/07/2023 Active Vitamin D3 50 MCG (2000 UT) 1 Oral every day; Duration: 0 12/20/2020 Active Zetia 10 MG 1 Oral every day; Duration: 0 12/20/2020 Active Chantix Starting Month Jose 0.5 MG X 11 & 1 MG X 42 Oral; Duration: 0 *Reorder from [facility] for eRx and Interaction Alerts* 05/30/2024 Active Aspirin Adult Low Strength 81 MG 2 Oral every day; Duration: 0 05/29/2021 Active Folic Acid 0.8 MG 1 Oral every day; Duration: 0 12/20/2020 Active Spironolactone 25 MG 1 Oral every day; Duration: 0 12/07/2023 Active Immunizations Vaccine Route Administration Date Status Comme nts Zoster Unknown 05/15/2023 [address]ered [facility] ,sourcename : Pharmacy Source VFC Code: : Tdap Unknown 09/07/2012 Administered ,sourcename : Historical information -from other provider Source VFC Code: : Tdap Unknown 05/15/2023 Administered [facility] ,sourcename : Pharmacy Source VFC Code: : RSV-MAb (Respiratory syncytial virus immune globulin) Unknown 05/15/2023 Administered [facility] ,sourcename : Pharmacy Source VFC Code: : Pneumococcal conjugate PCV 13 Unknown 06/20/2020 Administered ,sourcename : Historical information -from other provider Source VFC Code: : Moderna Covid-19 Vaccine 1st dose Unknown 10/16/2020 Administered ,sourcename : Historical information -from other provider Source VFC Code: : Moderna Covid-19 Vaccine 1st dose Unknown 11/13/2020 Administered ,sourcename : Historical information -from other provider Source VFC Code: : Influenza, high-dose seasonal, quadrivalent, preservative free >65 yrs IM Intramuscular 05/29/2021 Administered ,sourcename : New immunization record ,immstatus : Complete Source VFC Code: : Influenza, high dose seasonal IM Intramuscular 05/30/2024 Administered ,sourcename : Historical information -source unspecified ,immstatus : Complete Hep B, adult (2 dose schedule) Unknown 05/28/2022 Administered [facility] ,sourcename : Historical information -from other registry Source VFC Code: : Hep B, adult (2 dose schedule) Unknown 06/29/2022 Administered [facility] ,sourcename : Historical information -from other registry Source VFC Code: : Hep B, adult (2 dose schedule) Unknown 12/01/2022 Administered [facility] ,sourcename : Historical information -from other registry Source VFC Code: : Problems Problem Type SNOMED Code ICD Code Onset Dates Problem Status W/U Status Risk Notes Problem Neoplasm of uncertain behavior of skin (13528139) Neoplasm of uncertain behavior of skin (D48.5) Active confirmed Problem Anemia (380961817) Anemia, unspecified (D64.9) Active confirmed Problem Hypoglycemia (185518746) Hypoglycemia, unspecified (E16.2) Active confirmed Problem Vitamin B deficiency (95321885) Deficiency of other specified B group vitamins (E53.8) Active confirmed Problem Vitamin D deficiency (80983372) Vitamin D deficiency, unspecified (E55.9) Active confirmed Problem Hyperlipidemia (81353272) Hyperlipidemia, unspecified (E78.5) Active confirmed Problem Hypomagnesemia (052837770) Hypomagnesemia (E83.42) Active confirmed Problem Hypocalcemia (2949416) Hypocalcemia (E83.51) Active confirmed Problem Hypokalemia (50160895) Hypokalemia (E87.6) Active confirmed Problem Tobacco user (717775711) Nicotine dependence, unspecified, uncomplicated (F17.200) Active confirmed Problem Obstructive sleep apnea syndrome (disorder) (37615759) Obstructive sleep apnea (adult) (pediatric) (G47.33) Active confirmed Problem Visual difficulty (284352551) Unspecified visual loss (H54.7) Active confirmed Problem Otitis externa of left ear (7109452429437216) Unspecified otitis externa, left ear (H60.92) Active confirmed Problem Impacted cerumen (66171773) Impacted cerumen, unspecified ear (H61.20) Active confirmed Problem Hearing loss (03175691) Unspecified hearing loss, unspecified ear (H91.90) Active confirmed Problem Essential hypertension (37430168) Essential (primary) hypertension (I10) Active confirmed Problem Mitral valve disorder (92850826) Nonrheumatic mitral (valve) prolapse (I34.1) Active confirmed Problem Aortic valve disorder (1334947) Nonrheumatic aortic (valve) insufficiency (I35.1) Active confirmed Problem Complete atrioventricular block (54016578) Atrioventricular block, complete (I44.2) Active confirmed Problem Atrial fibrillation (29211948) Unspecified atrial fibrillation (I48.91) Active confirmed Problem Chronic diastolic heart failure (730532073) Chronic diastolic (congestive) heart failure (I50.32) Active confirmed Problem Acute cerebrovascular insufficiency (66287326) Acute cerebrovascular insufficiency (I67.81) Active confirmed Problem Thoracic aortic aneurysm without rupture (95998543) Thoracic aortic aneurysm, without rupture (I71.2) Active confirmed Problem Crohn's disease of large bowel (3590695) Crohn's disease of large intestine without complications (K50.10) Active confirmed Problem Crohn's disease (78498401) Crohn's disease, unspecified, without complications (K50.90) Active confirmed Problem Stenosis of rectum and anus (984197189) Stenosis of anus and rectum (K62.4) Active confirmed Problem 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, 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) Active confirmed Problem Melena (9479276) Melena (K92.1) Active confirmed Problem Epidermoid cyst of skin (852959162) Follicular cyst of the skin and subcutaneous tissue, unspecified (L72.9) Active confirmed Problem Seborrheic keratosis (13534757) Other seborrheic keratosis (L82.1) Active confirmed Problem Localized, primary osteoarthritis of the hand (373432281) Unilateral primary osteoarthritis of first carpometacarpal joint, left hand (M18.12) Active confirmed Problem Osteoarthritis (848740167) Unspecified osteoarthritis, unspecified site (M19.90) Active confirmed Problem Pain of right knee region (finding) (116917041610589) Pain in right knee (M25.561) Active confirmed Problem Pain of left knee joint (finding) (808029201311105) Pain in left knee (M25.562) Active confirmed Problem Lumbosacral spondylosis without myelopathy (21331980) Spondylosis without myelopathy or radiculopathy, lumbar region (M47.816) Active confirmed Problem Pain in thoracic spine (771563323) Pain in thoracic spine (M54.6) Active confirmed Problem Backache (504642656) Dorsalgia, unspecified (M54.9) Active confirmed Problem Trochanteric bursitis of right hip (207702256875422) Trochanteric bursitis, right hip (M70.61) Active confirmed Problem Pain in left foot (682813711632034) Pain in left foot (M79.672) Active confirmed Problem Age-related osteoporosis (889971135) Age-related osteoporosis without current pathological fracture (M81.0) Active confirmed Problem Disorder of bone (20516288) Other specified disorders of bone density and structure, unspecified site (M85.80) Active confirmed Problem Cardiac murmur, unspecified (R01.1) Active confirmed Problem Shortness of breath (247478071) Shortness of breath (R06.02) Active confirmed Problem Other specified symptoms and signs involving the circulatory and respiratory systems (R09.89) Active confirmed Problem Paresthesia (finding) (01349085) Paresthesia of skin (R20.2) Active confirmed Problem Disorder of musculoskeletal system (903296) Other symptoms and signs involving the musculoskeletal system (R29.898) Active confirmed Problem Dizziness and giddiness (685772768) Dizziness and giddiness (R42) Active confirmed Problem Edema (61752895) Edema, unspecif ied (R60.9) Active confirmed Problem Laceration witho ut foreign body of left forearm, initial encounter (S51.812A) Active confirmed Problem Adult health examination (392203866) Encounter for general adult medical examination without abnormal findings (Z00.00) Active confirmed Problem Screening for malignant neoplasm of skin (096951202) Encounter for screening for malignant neoplasm of skin (Z12.83) Active confirmed Problem Tobacco use (665679346) Tobacco use (Z72.0) Active confirmed Problem Cardiac pacemaker in situ (130511870) Presence of cardiac pacemaker (Z95.0) Active confirmed Problem Postprocedural intestinal obstruction, unspecified as to partial versus complete (K91.30) Active confirmed Problem Spinal stenosis of lumbar region (26845610) Spinal stenosis, lumbar region without neurogenic claudication (M48.061) Active confirmed Problem Chronic kidney disease stage 3A (disorder) (321352250) Chronic kidney disease, stage 3a (N18.31) Active confirmed Problem Thoracic aortic aneurysm without rupture (disorder) (19575487) Thoracic aortic aneurysm, without rupture, unspecified (I71.20) Active confirmed Problem Body mass index 25-29 - overweight (964826879) Body mass index (BMI) 26.0-26.9, adult (Z68.26) Active confirmed Problem BMI 25-29 - overweight (162146254) Body mass index (BMI) 25.0-25.9, adult (Z68.25) Active confirmed Problem Hypo-osmolality and or hyponatremia (393862644) Hypo-osmolality and hyponatremia (E87.1) Problem resolved confirmed Problem Alcohol abuse (01032090) Alcohol abuse, uncomplicated (F10.10) Problem resolved confirmed Problem Visual disturbance (94980987) Unspecified visual disturbance (H53.9) Problem resolved confirmed Problem Acute non-infective otitis externa (812718823) Unspecified acute noninfective otitis externa, left ear (H60.502) Problem resolved confirmed Problem Impacted cerumen (71689760) Impacted cerumen, bilateral (H61.23) Problem resolved confirmed Problem Pneumonia (829346262) Pneumonia, unspecified organism (J18.9) Problem resolved confirmed Problem Acute respiratory failure (49339223) Acute respiratory failure, unspecified whether with hypoxia or hypercapnia (J96.00) Problem resolved confirmed Problem Rectal abscess (993864511) Rectal abscess (K61.1) Problem resolved confirmed Problem Gout (55356578) Gout, unspecifie d (M10.9) Problem resolved confirmed Problem Pain in wrist (27956518) Pain in left wrist (M25.532) Problem resolved confirmed Problem Arthralgia of the ankle and/or foot (526073397) Pain in left ankle and joints of left foot (M25.572) Problem resolved confirmed Problem Pain in limb (73000214) Pain in left hand (M79.642) Problem resolved confirmed Problem Disorder of kidney and/or ureter (631827288) Disorder of kidney and ureter, unspecified (N28.9) Problem resolved confirmed Problem Bradycardia (89482612) Bradycardia, unspecified (R00.1) Problem resolved confirmed Problem Hemoptysis (26505195) Hemoptysis (R04.2) Problem resolved confirmed Problem Cough (69501058) Cough (R05) Problem resolved confirmed Problem Hematuria (57940323) Hematuria, unspecified (R31.9) Problem resolved confirmed Problem Syncope and collapse (232394053) Syncope and collapse (R55) Problem resolved confirmed Problem Contusion of lower leg (38029914) Contusion of unspecified lower leg, initial encounter (S80.10XA) Problem resolved confirmed Problem Injury of left foot (disorder) (51357540831576683 ) Unspecified injury of left foot, initial encounter (S99.922A) Problem resolved confirmed Problem Vaccination given (123465182) Encounter for immunization (Z23) 021 Problem resolved confirmed Vital Signs Heart Rate 88 /min 06/30/2024 Temperature 97.8 degrees Fahrenheit 06/30/2024 Respiratory Rate 16 /min 06/30/2024 Height-cm 160.02 cm 05/30/2024 Blood pressure diastolic 88 mm Hg 06/30/2024 Oximetry 99 % 05/30/2024 Weight-kg 66.68 kg 05/30/2024 Height 63.00 in 05/30/2024 Blood pressure systolic 128 mm Hg 06/30/2024 Weight 147.00 lbs 05/30/2024 BMI 26.04 kg/m2 05/30/2024 Encounters Encounter Location [place] [address] 10/27/2023 Gwen Yancey Unspecified visual l oss H54.7 ; Encounter for screening for malignant neoplasm of skin Z12.83 ; Unspecified osteoarthritis, unspecified site M19.90 ; Acute cerebrovascular insufficiency I67.81 ; Unspecified hearing loss, unspecified ear H91.90 ; Other specified symptoms and signs involving the circulatory and respiratory systems R09.89 ; Other seborrheic keratosis L82.1 ; Crohn's disease, unspecified, without complications K50.90 and Pain in thoracic spine M54.6 [place] [id number] 11/01/2023 Provider Migration Vitamin D deficiency, unspecified E55.9 ; Essential (primary) hypertension I10 ; Hypomagnesemia E83.42 ; Hypoglycemia, unspecified E16.2 and Deficiency of other specified B group vitamins E53.[address] [address] 11/03/2023 Provider Migration Vitamin D deficiency, unspecified E55.9 ; Hypocalcemia E83.51 and Hypomagnesemia E83.[address] [address] 11/10/2023 Provider Migration Vitamin D deficiency, unspecified E55.9 and Hypomagnesemia E83.[address] [address] 11/22/2023 Gwen Yancey Laceration without foreign body of left forearm, initial encounter S51.812A ; Crohn's disease, unspecified, without complications K50.90 ; Anemia, unspecified D64.9 ; Hypocalcemia E83.51 ; Hypomagnesemia E83.42 ; Melena K92.1 ; Vitamin D deficiency, unspecified E55.9 ; Unspecified hearing loss, unspecified ear H91.90 ; Nonrheumatic aortic (valve) insufficiency I35.1 ; Chronic kidney disease, stage 3a N18.31 and Dizziness and giddiness R42 [address] [address] 03/27/2024 Leann Torres Vitamin D deficiency , unspecified E55.9 ; Essential (primary) hypertension I10 ; Hypomagnesemia E83.42 ; Deficiency of other specified B group vitamins E53.8 ; Hypocalcemia E83.51 ; Age-related osteoporosis without current pathological fracture M81.0 ; Crohn's disease, unspecified, without complications K50.90 ; Unspecified atrial fibrillation I48.91 ; Dizziness and giddiness R42 ; Chronic kidney disease, stage 3a N18.31 ; Anemia, unspecified D64.9 and Nonrheumatic aortic (valve) insufficiency I35.[address] [address] 05/30/2024 Gwen Eccles Age-related osteoporosis without current pathological fracture M81.0 ; Hyperlipidemia, unspecified E78.5 ; Crohn's disease of large intestine without complications K50.10 ; Encounter for general adult medical examination without abnormal findings Z00.00 ; Nicotine dependence, unspecified, uncomplicated F17.200 ; Unspecified atrial fibrillation I48.91 ; Presence of cardiac pacemaker Z95.0 ; Tobacco use Z72.0 ; Neoplasm of uncertain behavior of skin D48.5 ; Spinal stenosis, lumbar region without neurogenic claudication M48.061 ; Chronic diastolic (congestive) heart failure I50.32 ; Body mass index (BMI) 26.0-26.9, adult Z68.26 ; Paresthesia of skin R20.2 and Thoracic aortic aneurysm, without rupture, unspecified I71.[address] [address] [facility] Neoplasm of uncertai n behavior of skin D48.[address] [place] [address] 07/08/2024 Provider Migration [address] [address] 07/09/2024 Provider Migration Assessments Encounter Date Diagnosis (ICD Code) Assessment Notes Treat ment Notes Treatment Clinical Notes 10/27/2023 Unspecified visual loss (ICD-10 - H54.7) 10/27/2023 Unspecified hearing loss, unspecified ear (ICD-10 - H91.90) 10/27/2023 Acute cerebrovascula r insufficiency (ICD-10 - I67.81) 10/27/2023 Crohn's disease, unspecified, without complications (ICD-10 - K50.90) 10/27/2023 Other seborrheic keratosis (ICD-10 - L82.1) 10/27/2023 Unspecified osteoarthritis, unspecified site (ICD-10 - M19.90) 10/27/2023 Pain in thoracic spi ne (ICD-10 - M54.6) 10/27/2023 Other specified symptoms and signs involving the circulatory and respiratory systems (ICD-10 - R09.89) 10/27/2023 Encounter for screening for malignant neoplasm of skin (ICD-10 - Z12.83) 11/01/2023 Hypoglycemia, unspecified (ICD-10 - E16.2) 11/01/2023 Deficiency of other specified B group vitamins (ICD-10 - E53.8) 11/01/2023 Vitamin D deficiency , unspecified (ICD-10 - E55.9) 11/01/2023 Hypomagnesemia (ICD- 10 - E83.42) 11/01/2023 Essential (primary) hypertension (ICD-10 - I10) 11/03/2023 Vitamin D deficiency , unspecified (ICD-10 - E55.9) 11/03/2023 Hypomagnesemia (ICD- 10 - E83.42) 11/03/2023 Hypocalcemia (ICD-10 - E83.51) 11/10/2023 Vitamin D deficiency , unspecified (ICD-10 - E55.9) 11/10/2023 Hypomagnesemia (ICD- 10 - E83.42) 11/22/2023 Anemia, unspecified (ICD-10 - D64.9) 11/22/2023 Vitamin D deficiency , unspecified (ICD-10 - E55.9) 11/22/2023 Hypomagnesemia (ICD- 10 - E83.42) 11/22/2023 Hypocalcemia (ICD-10 - E83.51) 11/22/2023 Unspecified hearing loss, unspecified ear (ICD-10 - H91.90) 11/22/2023 Nonrheumatic aortic (valve) insufficiency (ICD-10 - I35.1) 11/22/2023 Crohn's disease, unspecified, without complications (ICD-10 - K50.90) 11/22/2023 Melena (ICD-10 - K92.1) 11/22/2023 Dizziness and giddiness (ICD-10 - R42) 11/22/2023 Laceration without foreign body of left forearm, initial encounter (ICD-10 - S51.812A) 11/22/2023 Chronic kidney disease, stage 3a (ICD-10 - N18.31) 03/27/2024 Anemia, unspecified (ICD-10 - D64.9) 03/27/2024 Deficiency of other specified B group vitamins (ICD-10 - E53.8) 03/27/2024 Vitamin D deficiency , unspecified (ICD-10 - E55.9) 03/27/2024 Hypomagnesemia (ICD- 10 - E83.42) 03/27/2024 Hypocalcemia (ICD-10 - E83.51) 03/27/2024 Essential (primary) hypertension (ICD-10 - I10) 03/27/2024 Nonrheumatic aortic (valve) insufficiency (ICD-10 - I35.1) 03/27/2024 Unspecified atrial fibrillation (ICD-10 - I48.91) 03/27/2024 Crohn's disease, unspecified, without complications (ICD-10 - K50.90) 03/27/2024 Age-related osteoporosis without current pathological fracture (ICD-10 - M81.0) 03/27/2024 Dizziness and giddiness (ICD-10 - R42) 03/27/2024 Chronic kidney disease, stage 3a (ICD-10 - N18.31) 05/30/2024 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) 05/30/2024 Hyperlipidemia, unspecified (ICD-10 - E78.5) 05/30/2024 Nicotine dependence, unspecified, uncomplicated (ICD-10 - F17.200) 05/30/2024 Unspecified atrial fibrillation (ICD-10 - I48.91) 05/30/2024 Chronic diastolic (congestive) heart failure (ICD-10 - I50.32) 05/30/2024 Crohn's disease of large intestine without complications (ICD-10 - K50.10) 05/30/2024 Age-related osteoporosis without current pathological fracture (ICD-10 - M81.0) 05/30/2024 Paresthesia of skin (ICD-10 - R20.2) 05/30/2024 Encounter for genera l adult medical examination without abnormal findings (ICD-10 - Z00.00) 05/30/2024 Tobacco use (ICD-10 - Z72.0) 05/30/2024 Presence of cardiac pacemaker (ICD-10 - Z95.0) 05/30/2024 Spinal stenosis, lumbar region without neurogenic claudication (ICD-10 - M48.061) 05/30/2024 Thoracic aortic aneurysm, without rupture, unspecified (ICD-10 - I71.20) 05/30/2024 Body mass index (BMI ) 26.0-26.9, adult (ICD-10 - Z68.26) 06/30/2024 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) Plan Of Treatment Next Appt Details Provider Name:Gwen Yancey , 07/21/2024 03:00:00 PM, [employer] [address], [place], [address], [phone] Provider Name:Gwen Yancey , 11/02/2024 11:30:00 AM, [employer] [address], [place], [address], [phone] Provider Name:Gwen Yancey , 05/21/2025 02:00:00 PM, [employer] [address], [place], [address], [phone] Insurance Providers Payer Name Payer Address Payer Phone Subscriber Number Group Number Insured Name Patient Relationship to Insured Coverage Start Date Coverage End Date NGS Medicare B [address] [place] [address] [id number] Eliana Robert Self - patient is the insured 2 [employer]BS[place] [address] [place] [address] [id number] Eliana Robert Self - patient is the insured 2 NGS Medicare RHC [address] [place] [address] [id number] Eliana Robert Self - patient is the insured 2 Medical (General) History Surgical History Surgery Date(Month/Year) intestinal surgery ,notes : x3 for Crohn 's. Pacemaker implantation Ablation ,notes : x2 failed hysterectomy Gastric Bypass cholecystectomy Cataract removal ,notes : bilateral
== END 2024-07-21 07:43 | disposition home or self-care (01) ==
LOC: ANHIMG 07:44
PROVIDERS: PCP Family Medicine; Visit Provider Family Medicine
DX: Z12.31 Encounter for screening mammogram for malignant neoplasm of breast (principal); R92.8 Other abnormal and inconclusive findings on diagnostic imaging of breast
CPT/HCPCS: 77063; 77067

== ENCOUNTER → 2024-09-26 10:49 | Outpatient (REF) | payer MEDICARE, BC, SELFPAY ==
--- OUTSIDE RECORDS SUMMARY | 2024-09-26 11:01 | XMS_ITS | Encounter Summary ---
Author Organization [facility] Address [address] [place] [address] Care Team Providers Care Foundation Relations Manager Name Role Phone Gwen Yancey MD Primary Care Provider Encounter Details Date Type Department Care Team (Late st Contact Info) Description 07/30/2023 Therapy Plan [facility] [address] [place] [address] Gwen Yancey MD [address] [place] [id number] Social History Tobacco Use Types Packs/Day Years Used Date Smoking Tobacco: Every Day Cigarettes Passive Smoke Exposure: Current Smokeless Tobacco: Never Comments: to direct selling counselor Alcohol Use Standard Drinks/Week Comments Yes 0 (1 standard drink = 0.6 oz pur e alcohol) Seldom PHQ-2 Answer Date Recorded Patient Health Questionnaire-2 Score 0 11/24/2022 Comments No Sex and Gender Information Value Date Recorded Sex Assigned at Female 08/29/2024 9:02 AM COMPLIANCE ADVISOR Legal Sex Female 7:42 PM CDT Gender Identity Not on file Sexual Orientation Not on file documented as of this encounter Functional Status * RETIRED Are you deaf or do you have serious difficulty hearing Answer Date of Assessment Author Status No 11/06/2021 11:12 AM CDT Acti ve * RETIRED Are you blind or do you have serious difficulty seeing, even when wearing glasses? Answer Date of Assessment Author Status No 11/06/2021 11:12 AM CDT Acti ve * Do you have serious difficulty walking or climbing stairs? Answer Date of Assessment Author Status No 11/06/2021 11:12 AM Aster Morales RN Active * Do you have difficulty dressing or bathing? Answer Date of Assessment Author Status No 11/06/2021 11:12 AM Aster Morales RN Active * Because of a physical, mental, or emotional condition, do you have difficulty doing errands alone such as visiting a doctor's office or shopping? Answer Date of Assessment Author Status Yes 11/06/2021 11:12 AM Aster Morales RN Active documented as of this encounter Mental Status * Because of a physical, mental, or emotional condition, do you have serious difficulty concentrating, remembering, or making decisions? 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
--- OUTSIDE RECORDS SUMMARY | 2024-09-26 11:01 | XMS_ITS | Clinical Summary ---
Author Organization [facility] Address [address] [place] [address] Care Team Providers Care Historian Research Assistant Name Role Phone Tino Rodas MD Primary Care Provider [phone] Allergies Active Allergy Reactions Criticality Noted Date Comments Ibuprofen Rash,Unknown,Itching Medium 11/09/2016 Naproxen Itching,Rash,Unknown Medium 11/09/2016 Medications azaTHIOprine (IMURAN) 50 mg tablet Take 2 tablets by mouth once daily 10/09/2019 Active Cholecalciferol , Vitamin D3, 50 mcg (2,000 unit) Capsule Take 2,000 Units by mouth. 07/18/2019 Active cyanocobalamin (VITAMIN B-12) 1,000 mcg/mL Solution every 30 (thirty) days. Active ferrous sulfate 325 mg (65 mg iron) tablet TAKE 1 TABLET BY MOUTH THREE TIMES DAILY 09/27/2019 Active folic acid 0.8 mg Capsule Take by mouth. Active magnesium oxide (MAG-OX) 400 mg (241.3 mg magnesium) tablet Take 400 mg by mouth. 09/20/2018 Active metoprolol succinate (TOPROL XL) 25 mg Extended Release 24 hour tablet 10/08/2019 Active potassium chloride (KLOR-CON) 10 mEq Extended Release tablet Take 20 mEq by mouth. Active aspirin (ECOTRIN EC) 81 mg Tablet, Delayed Release (E.C.) TAKE 1 TABLET BY MOUTH ONCE DAILY 03/07/2020 Active clopidogreL (PLAVIX) 75 mg Tablet 08/08/2020 Active ezetimibe (ZETIA) 10 mg tablet 07/23/2020 Active BD Luer-Denice Syringe 3 mL 25 gauge x 1 Syringe 03/26/2021 Active furosemide (LASIX) 20 mg tablet 03/19/2021 Active Active Problems Problem Noted Date Diagnosed Date Normocytic anemia 10/10/2019 Crohn's disease with complication 10/10/2019 Family History Medical History Relation Name Comments Heart Disease Brother 3 Heart Disease Brother 4 Heart Disease Father Diabetes Mother Heart Disease Mother Cancer Sister 2 Diabetes Sister 3 Heart Disease Sister 3 Relation Name Status Comments Brother 1 Alive Brother 2 Alive Brother 3 Brother 4 Daughter 1 Alive Daughter 2 Alive Daughter 3 Alive Father Mother Sister 1 Sister 2 Alive Sister 3 Alive Sister 4 Alive Social History Tobacco Use Types Packs/Day Years Used Date Smoking Tobacco: Every Day Cigarettes 0.5 25 Smokeless Tobacco: Never Tobacco Cessation:Ready to Q uit: No; Counseling Given: No Alcohol Use Standard Drinks/Week Comments Yes 0 (1 standard drink = 0.6 oz pur e alcohol) Comments No Sex and Gender Information Value Date Recorded Sex Assigned at Not on file 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 Gender Identity Not on file Sexual Orientation Not on file Last Filed Vital Signs Vital Sign Reading Time Taken Comments Blood Pressure 171/94 06/03/2021 1:38 PM CDT Pulse 81 06/03/2021 1:38 PM CDT Temperature 36.8 C (98.2 F) 06/03/2021 1:38 PM CDT Respiratory Rate 22 01/19/2020 11:49 AM CDT Oxygen Saturation 94% 06/03/2021 1:38 PM CDT Inhaled Oxygen Concentration - - Weight 60.4 kg (133 lb 1.6 oz) 06/03/2021 1:38 P M CDT Height 165.1 cm (5' 5 ) 06/03/2021 1:38 PM CDT Body Mass Index 22.15 06/03/2021 1:38 PM CDT Plan of Treatment Health Maintenance Due Date Last Done Comments PNEUMOCOCCAL VACCINE 65+ YEA RS (1 of 2 - PCV) 1964 ZOSTER VACCINE (1 of 2) 12/14/1995 RSV VACCINE (60+ or ) (1 - 1-dose 75+ series) 2020 DTAP/TDAP/TD VACCINES (2 - T d or Tdap) 09/07/2022 09/07/2012 INFLUENZA VACCINE (#1) 2024 09/19/2018, 2016 COLORECTAL SCREENING Discontinued 01/28/2021, 08/20/2020, 08/20/2020, Additional history exists Colorectal Cancer Screening Discontinued OSTEOPOROSIS SCREENING Completed , 08/16/2020, 11/09/2017, Additional history exists FIT-DNA Q 3 years Discontinued FIT/FOBT Q 1 year Discontinued Flex Sig/CT Colonography Q 5 years Discontinued Insurance MEDICARE PART A AND B BCBS SUPP Care Teams Historian Research Assistant Relationship Specialty Start Date End Date Tino Rodas MD [address] [facility] [address] [place] [address] PCP - General Family Practice 10/10/19
--- OUTSIDE RECORDS SUMMARY | 2024-09-26 11:01 | XMS_ITS | Encounter Summary ---
Author Organization [facility] Address [address] [place] [address] Phone Care Team Providers Care Director Strategy Name Role Phone Donovan Alberts MD PhD Unavailable [phone] Tucker Barrera MD Unavailable [phone] Gwen Yancey MD Primary Care Provider Encounter Details Date Type Department Care Team (Latest Contact Info) Description 06/03/2023 Orders Only [facility] Scanning, Provider Social History Tobacco Use Types Packs/Day Years Used Date Smoking Tobacco: Every Day Cigarettes 0.3 63.1 Started: 1961 Smokeless Tobacco: Never Comments:Heavy smoker 1-1.5P PD x 50yrs - reduced to 1/2 PPD in 2018 Alcohol Use Standard Drinks/Week Comments Yes 3 (1 standard drink = 0.6 oz pur e alcohol) AUDIT-C Answer Date Recorded Q1: How often do you have a drink containing alc ohol? 2-3 times a week 05/04/2023 Q2: How many drinks containi ng alcohol do you have on a typical day when you are drinking? 1 or 2 05/04/2023 Frequency of Binge Drinking Not on file 04/10 PHQ-2 Answer Date Recorded PHQ-2 Total Score (If total score is 3 or more points, staff should administer the PHQ-9) 0 06/13/2021 Personal Safety Answer Date Recorded Have you ever been in or are you currently in a harmful physical or emotional relationship or is someone making you feel afraid or unsafe? 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 Gender Identity Not on file Sexual Orientation Not on file documented as of this encounter Plan of Treatment Not on file documented as of this encounter Procedures Procedure Name Priority Date/Time Associated Diagnosis Comments CARDIOLOGY DOCUMENT SCAN 06/03/2023 documented in this encounter Results * CARDIOLOGY DOCUMENT SCAN (06/03/2023) Anatomical Region Laterality Modality Other Provider Scanning CV CARDIAC SERVICES PROCEDURES Final Result documented in this encounter Visit Diagnoses Not on filedocumented in this encounter Care Teams Director Strategy Relationship Specialty Start Date End Date Gwen Yancey MD [address] [place] [address] PCP - General Family Medicine 01/01/21 Donovan Alberts MD PhD [address] [place] [address] Referring Physician Gastroenterology 12/31/20 Tucker Barrera MD [address] [facility] [phone] [place] [address] Surgeon Colon and Rectal Surgery 12/31/20 documented as of this encounter
--- OUTSIDE RECORDS SUMMARY | 2024-09-26 11:01 | XMS_ITS | Encounter Summary ---
Author Organization [facility] Address [address] [place] [address] Phone Care Team Providers Care Occupational Health And Safety Manager Name Role Phone Donovan Alberts MD PhD Unavailable [phone] Tucker Barrera MD Unavailable Gwen Yancey MD Primary Care Provider Encounter Details Date Type Department Care Team (Late st Contact Info) Description 12/10/2022 Orders Only [facility] Scanning, Provider Social History Tobacco Use Types [...] containing alc ohol? 2-3 times a week 04/28/2022 Q2: How many drinks containi ng alcohol do you have on a typical day when you are drinking? 1 or 2 04/28/2022 Q3: How often do you have si x or more drinks on one occasion? 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 Gender Identity Not on file Sexual Orientation Not on file documented as of this encounter Plan of Treatment Not on file documented as of this encounter Procedures Procedure Name Priority Date/Time Associated Diagnosis Comments SCAN - LABS 12/10/2022 documented in this encounter Results * SCAN - LABS (12/10/2022) us Provider Scanning Final Result documented in this encounter Visit Diagnoses Not on filedocumented in this encounter Care Teams Occupational Health And Safety Manager Relationship Specialty Start Date End Date Gwen Yancey MD [address] [place] [address] PCP - General Family Medicine 01/01/21 Donovan Alberts MD PhD [address] [place] [address] Referring Physician Gastroenterology 12/31/20 Tucker Barrera MD [address] [facility] [phone] [place] [address] Surgeon Colon and Rectal Surgery 12/31/20 documented as of this encounter
--- OUTSIDE RECORDS SUMMARY | 2024-09-26 11:02 | XMS_ITS | Clinical Summary ---
Author Organization [facility] Address [address] [place] [address] Care Team Providers Care Design Drafter Name Role Phone Donovan Alberts MD PhD Unavailable [phone] Tucker Barrera MD Unavailable [phone] Gwen Yancey MD Primary Care Provider Allergies Active Allergy Reactions Criticality Noted Date Comments Naproxen Sodium Itching Low Ibuprofen Itching,Rash,Other ( See comments),Hives Medium 11/09/2016 PCP instructed patient not to take. Naproxen Itching,Rash Medium 11/09/2016 Medications magnesium oxide (MAG-OX) 400 mg (241.3 mg elemental magnesium) tabletIndicati ons:hypomagnes emia Take 1 tablet (400 mg total) by mouth daily. 30 tablet 2 9 Active folic acid 0.8 mg capsuleIndicat ions:Folate Deficiency Take 0.8 mg by mouth every morning Active ferrous sulfate 325 mg (65 mg of elemental iron) tablet Take 1 tablet (325 mg total) by mouth 3 (three) times a day 90 tablet 1 0 Active cholecalcifero l (VITAMIN D-3) 50,000 unit capsule Take 1 capsule (50,000 Units total) by mouth once a week 12 capsule 1 Active Additional Information Patient taking differently: 5,000 UnitsoralDaily, Reported on 07/03/2024 aspirin 81 mg enteric coated tabletIndicati ons:A Fib Take 1 tablet (81 mg total) by mouth every morning 1 TAB DAILY BEFORE BREAKFAST Active ezetimibe (ZETIA) 10 mg tablet TAKE 1 TABLET NIGHTLY AT BEDTIME (PLEASE MAKE APPOINTMENT) 90 tablet 3 3 Active ergocalciferol (VITAMIN D) 50,000 unit capsule TAKE 1 CAPSULE BY MOUTH ONCE A WEEK FOR 8 WEEKS. 4 Active furosemide (LASIX) 20 mg tablet Take 1 tablet (20 mg total) by mouth daily 90 tablet 3 4 Active spironolactone (ALDACTONE) 25 mg tablet Take 1 tablet (25 mg total) by mouth daily 90 tablet 3 4 Active cyanocobalamin (Vitamin B-12) 1,000 mcg/mL injectionIndic ations:Vitamin B12 Deficiency Inject 1 mL (1,000 mcg total) into the muscle as instructed every 14 (fourteen) days LAST Wednesday OF EACH MONTH 2 mL 6 4 Active syringe with needle 1 mL 26 gauge x 5/8 syringe Use to inject Vitamin B12 under the skin every 14 days as directed 6 each 5 4 Active Entyvio 300 mg recon soln 4 Active metoprolol XL (TOPROL-XL) 50 mg extended release tablet TAKE 1 TABLET DAILY 90 tablet 4 Active varenicline tartrate (CHANTIX NI) 0.5 mg (11)- 1 mg (42) tablet TAKE DIRECTED PER PACKAGE INSERT 4 Active potassium chloride ER (KLOR-CON) 20 mEq CR tablet Take 80meq daily x 7 days then back to 40meq daily 194 tablet 5 Active potassium chloride ER (KLOR-CON) 20 mEq CR tablet Take 2 tablets (40 mEq total) by mouth daily 180 tablet 2 2 09/15/19 25 Discontin ued(Reord er) Active Problems Problem Noted Date Diagnosed Date Crohn's disease with complication 03/27/2024 Osteoporosis 10/22/2023 Acute on chronic heart failu re with preserved ejection fraction (CMS/HCC) 05/14/2023 Assessment & Plan (05/14/2023 3:48 PM CDT): Acut on chronic HFpEF, impproved following ED visit and increased PO diuretics. She is now back to her DW and euvolemic on exam, NYHA class I findings. Decrease lasix to 40 mg daily and increase PRN weight gain 2-3 lbs in 24-48 hours take additional 20 mg in the afternoon. Start aldactone 12.5mg daily, BMP in a week. ECHO when able. Her repeat BNP today is 1100. CMP today. Continue metoprolol [address] Pham as scheduled in November pending ECHO. Serrated polyposis syndrome 01/15/2023 Left ankle swelling 12/20/2021 Assessment & Plan (12/20/2021 10:47 AM CDT): Patient indicates this improved with elevation but when she had a similar issue to her hand required steroids. Could reflect gout or an inflammatory condition. The patient should follow up with her primary care provider. We will check a CRP with her safety labs. Anemia 06/13/2021 Assessment & Plan (06/14/2021 11:12 AM CDT): -on po iron at home. -last iron studies more c/w anemia of chronic disease -stable Assessment & Plan (06/13/2021 5:16 PM CDT): -on po iron at home. -last iron studies more c/w anemia of chronic disease -stable Adjustment and management of cardiac pacemaker 1 Left buttock abscess 01/01/2021 Septic shock 01/27/2020 Assessment & Plan (01/28/2020 4:10 PM CDT): - Patient presented to OSH febrile with rigors and MAP < 65 with no targeting symptoms initially requiring norepinephrine prior to transfer. - Evaluation with WBC 11.1, lactate 1.1, trop negative, pBNP 5746 (up from BNP in 04/2019), COVID negative. Added on ESR/CRP to admission labs. Blood cultures/Urine culture pending. CXR here with no focal consolidation - only mild edema and stable cardiomegaly. - Unclear source at this time - following cultures. Concern for intracardiac involvement given recent Watchmen device placement. COVID negative and cleared from precautions - Continue Vancomycin (decreased q12 to q24 given CrCl), Cefepime - OSH blood cultures and blood cultures here NGTD - Hold antihypertensives Presence of Watchman left atrial appendage closu re device 01/23/2020 Assessment & Plan (01/28/2020 4:10 PM CDT): - Recent Watchman device placement with no change in patient clinical status from a cardiopulmonary standpoint - Site of insertion healing well - TTE ordered - Awaiting transfer to cardiology Assessment & Plan (01/24/2020 10:00 AM CDT): S/p successful left atrial appendage occlusion with 33 mm [address]man device [address] Dr[address] Pham. Femoral pulses and distal pulses good and intact. No bruit or hematoma. - s/p post-op TTE: no concerning findings - continue apixaban 5 mg BID for 45 days prior to f/u AYANA - Structural Heart team saw patient this AM, removed stitch, pt good for discharge - Discharge home Anemia 01/09/2020 Overview (01/09/2020): Added automatically from request for surgery [id number] Assessment & Plan (01/28/2020 4:11 PM CDT): Hgb 9.3->7.6. No overt bleeding. - Hgb > 7 - Trend CBC - Monitor closely for bleed Vitamin D deficiency 10/06/2019 Assessment & Plan (01/27/2020 10:21 PM CDT): - Recheck levels Assessment & Plan (01/23/2020 4:06 PM CDT): - continue vitamin D 2000 units daily Assessment & Plan (10/06/2019 5:20 PM MACHINE SET UP TECHNICIAN): Patient was given vitamin-D supplementation will check for its adequacy today. Absolute anemia 10/06/2019 Assessment & Plan (12/20/2021 10:44 AM CDT): The patient's hemoglobin seemed to dip with her recent admission. We would like to recheck her CBC soon. Assessment & Plan (10/06/2019 5:23 PM MACHINE SET UP TECHNICIAN): The patient is scheduled to see the finance broker on Wednesday. We will repeat his CBC for our records but will not do an extensive workup beyond rechecking thiopurines metabolites as we will leave that to the finance broker. We would like to get copies of her procedures to see if erosions were noted in her stomach again as this was thought to be an area of bleeding on her 2019 small-bowel enteroscopy. If her Eliquis is thought to be biggest provocateur of her bleeding, she may need alternatives. High risk medications (not anticoagulants) long- term use 04/21/2019 Weight loss 04/21/2019 Assessment & Plan (10/06/2019 5:20 PM MACHINE SET UP TECHNICIAN): Patient's weight is stable but it has not returned to its previous baseline. As she had hepatic steatosis noted on her imaging in 2019 and has had an elevated alkaline phosphatase, 1 would worry that she might have elevated triglycerides secondary to impaired glucose tolerance. We will add on a hemoglobin A1c. As she has limited small-bowel remaining, she may also have some element of pancreatic insufficiency that would improve with pancreatic enzymes. 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 We will send in a prescription but would also like to check her drug B12 on Wednesday as this should show what her drug level is off B12 as at times we need to document the need for additional medication. Assessment & Plan (10/06/2019 5:19 PM MACHINE SET UP TECHNICIAN): This likely contributes to her stool frequency and may also contribute to her weight loss. We have encouraged the patient to try using low-dose Imodium to slow down her frequency. Ultimately she can have up to 8 tablets a day but as she is afraid of constipation, she can start with half tablet daily Given how extensive her resection was, she may have some element of pancreatic insufficiency and Creon may be appealing if she cannot control her stool frequency with Imodium. Crohn's disease of both smal l and large intestine with other complication 01/06/2019 Overview (01/06/2019): Added automatically from request for surgery [id number] Assessment & Plan (12/20/2021 10:40 AM CDT): Overall the patient is doing fairly well on azathioprine with 2 reassuring colonoscopies last year. She will be due for repeat colonoscopy next month follow-up on her frequent polyps. As her hemoglobin has dipped, we will plan to recheck her metabolites. She has been on the upper threshold of appropriate so we may be able to reduce this slightly and maintain her disease control while suppressing her bone marrow less. Plan 1. Continue current medications 2. Check metabolites 3. Repeat colonoscopy in the next couple months Assessment & Plan (01/27/2020 10:21 PM CDT): - Stable BMs at this time per patient - No recent GI bleeding - Continue Azathioprine Assessment & Plan (01/23/2020 4:06 PM CDT): - continue azathioprine in AM Assessment & Plan (10/06/2019 5:17 PM MACHINE SET UP TECHNICIAN): Seemingly the patient's symptoms are stable and no obvious inflammation was noted on her recent EGD and colonoscopy. We will recheck her metabolites today as they may be trending up and contributing to her anemia. For the time being we would like her to continue on her current medications. Plan 1. Continue azathioprine at current dose 2. Recheck labs and metabolites with possible dose adjustment 3. If azathioprine is thought to be a contributor to her anemia, we can consider switching to something like Entyvio. Encounter for smoking cessation counseling 02/28 Nausea 12/06/2017 Assessment & Plan (12/06/2017 9:26 AM CDT): 1. PPI therapy as above. If symptoms persist, call office. Dyslipidemia 06/30/2016 Assessment & Plan (01/28/2020 4:10 PM CDT): - Ezetimibe Assessment & Plan (01/23/2020 4:07 PM CDT): - continue ezetimide 10 mg daily Assessment & Plan (09/19/2018 12:02 PM MACHINE SET UP TECHNICIAN): Continue ezetimibe Assessment & Plan (09/16/2018 11:03 PM MACHINE SET UP TECHNICIAN): Continue ezetimibe Presence of cardiac pacemaker 10/24/2015 Complete atrioventricular block (CMS/HCC) 2015 Assessment & Plan (06/14/2021 11:12 AM CDT): -s/p PPM with recent intermittent ventricular capture. Now s/p revision of RV lead and generator replacement. Procedure went well. No complaints this morning -no issues on tele overnight -CXR + device interrogation complete, both normal -completed last dose of prophylactic Ancef -medically stable for dc today Assessment & Plan (06/13/2021 5:10 PM CDT): -s/p PPM with recent intermittent ventricular capture. Now s/p revision of RV lead and generator replacement. Procedure went well. -Monitor on tele overnight -CXR + device interrogation in AM -complete last dose of prophylactic Ancef Assessment & Plan (01/27/2020 10:21 PM CDT): - s/p PPM Assessment & Plan (09/19/2018 12:02 PM MACHINE SET UP TECHNICIAN): -s/p device interrogation, Normal device function with appropriate lead output and sensing. Increased RV sensitivity 2.5 mV to 4.0 mV; otherwise no changes made -pt states she continues to have intermittent dizziness but thinks it could be due to her new eye glasses. Assessment & Plan (09/18/2018 12:23 PM MACHINE SET UP TECHNICIAN): -s/p device interrogation, increased RV sensitivity Atrial fibrillation (CMS/HCC) 11/11/2010 Assessment & Plan (05/14/2023 3:42 PM CDT): SSS, AF sp AVN joe ablation. 100% RV pacing, follows with EP, sp Watchman on ASA alone. Assessment & Plan (01/28/2020 4:10 PM CDT): - Rate-controlled currently with metoprolol on hold - Continue apixaban for 45d post-watchman placement - Telemetry Assessment & Plan (01/23/2020 4:05 PM CDT): - continue apixaban 5 mg BID per Structural Heart Team - continue metoprolol XL 25 mg daily Assessment & Plan (09/19/2018 11:49 AM MACHINE SET UP TECHNICIAN): AV paced -Continue apixaban Assessment & Plan (09/18/2018 12:22 PM MACHINE SET UP TECHNICIAN): AV paced -Continue apixaban Hypertension 11/11/2010 Assessment & Plan (01/27/2020 10:17 PM CDT): - Hold home BP meds per above Assessment & Plan (01/23/2020 4:05 PM CDT): - continue HCTZ 25 mg daily Assessment & Plan (09/19/2018 12:04 PM MACHINE SET UP TECHNICIAN): At goal -c/w home lisinopril 30 mg daily, HCTZ 25 mg daily for now Assessment & Plan (09/18/2018 12:24 PM MACHINE SET UP TECHNICIAN): At goal -pending orthostatics, c/w home lisinopril 30 mg daily, HCTZ 25 mg daily for now, may require adjustment if persistent dizziness Resolved Problems Problem Noted Date Diagnosed Date Resolved Date Tobacco abuse 06/13/2021 06/26/2022 Assessment & Plan (06/14/2021 11:11 AM CDT): -encourage smoking cessation Assessment & Plan (06/13/2021 5:11 PM CDT): -encourage smoking cessation Anal fistula 05/08/2021 10/22/2023 Overview (05/08/2021): Added automatically from request for surgery [id number] Tobacco abuse 07/03/2019 06/26/2022 Assessment & Plan (01/27/2020 10:21 PM CDT): - Current smoker 1/2 PPD (has 60 PY history) H/O adenomatous polyp of colon 01/06/2019 10/22/2023 Overview (01/06/2019): Added automatically from request for surgery [id number] Assessment & Plan (12/20/2021 10:41 AM CDT): Happily the patient had no polyps on her last colonoscopy. She will need a repeat colonoscopy this summer and should likely stay on at least annual scopes given her frequency of polyps. Crohn's disease of small and large intestines with complication 11/02/2018 04/21/2019 Overview (11/02/2018): Added automatically from request for surgery [id number] Crohn's disease of both smal l and large intestine with unspecified complications 12/06/2017 04/21/2019 Assessment & Plan (09/19/2018 12:02 PM MACHINE SET UP TECHNICIAN): Stable -c/w home azathioprine Assessment & Plan (09/18/2018 12:23 PM MACHINE SET UP TECHNICIAN): Stable -c/w home azathioprine Assessment & Plan (12/06/2017 9:23 AM CDT): 1. Continue Imuran 150 mg daily and folic acid 800 mcg daily. 2. CBC, CMP every 3 months. 3. Follow-up colonoscopy with Dr. Alberts currently. Crohn's disease ([facility]) 12/23/2013 Overview (11/11/2016): Crohns disease Assessment & Plan (06/14/2021 11:11 AM CDT): -cont azathioprine -f/u GI / CRS Assessment & Plan (06/13/2021 5:11 PM CDT): -cont azathioprine -f/u GI / CRS Esophageal dysphagia 12/23/2013 024 Overview (11/12/2016): GERD (gastroesophageal reflux disease) Assessment & Plan (12/06/2017 9:25 AM CDT): 1. Patient declined barium swallow and EGD currently. Based on prior EGD in 2014 performed for similar symptoms and findings consistent with reflux, recommended omeprazole 40 mg daily x1 month. Instructed to call office if symptoms worsen or persist despite PPI therapy. Obesity 11/14/2012 01/27/2020 Encounters Date Type Department Care Team Description 09/21/2024 Telephone [facility] Gastroenterology [address] [place] [address] Medicine [facility] [place] [address] [place] [address] Stacey Cifuentes RN FU on K recommendation 09/15/2024 Telephone [facility] Gastroenterology [address] [place] [address] Medicine [facility] [place] [address] [place] [address] Betty Zuniga RN 09/15/2024 Orders Only [facility] Gastroenterology [address] [place] [address] Advanced Medicine 12th [place] [address] [place] [address] Donovan Alberts MD PhD 09/15/2024 Telephone [facility] Gastroenterology [address] [place] [address] Medicine 12th [place] [address] [place] [address] Betty Zuniga RN 09/15/2024 Telephone [facility] Gastroenterology [address] [place] [address] Medicine 12th [place] [address] [place] [address] Betty Zuniga RN 09/14/2024 Telephone [facility] Gastroenterology [address] [place] [address] [place] [address] [place] [address] Stacey Cifuentes, conference manager Results 09/11/2024 Orders Only [facility] GASTROENTEROLOGY Scanning, Provider 09/11/2024 Documentation [facility] Gastroenterology [address] [place] [address] [place] [address] Stacey Cifuentes RN Labs results - CBC, CMP, CRP, TB, HBV serologies 07/24/2024 Orders Only [facility] Cardiology [facility] Medical Office Building [address] [place] [address] Brandon Sifuentes MD PhD 07/20/2024 Telephone [facility] Gastroenterology [address] [place] [address] [place] [address] Betty Zuniga RN 07/03/2024 11:15 AM MACHINE SET UP TECHNICIAN Office Visit [facility] Cardiology [address] [place] [address] [place] [address] Brandon Sifuentes MD PhD Adjustment and management of cardiac pacemaker (Primary Dx); Persistent atrial fibrillation (HCC); Complete atrioventricular block (CMS/HCC) (HCC) 07/03/2024 10:45 AM MACHINE SET UP TECHNICIAN Ancillary Procedure [facility] Cardiology [address] [place] [address] [place] [address] CHB (complete heart block) (CMS/HCC) (HCC) (Primary Dx); Fitting and adjustment of cardiac pacemaker; Paroxysmal atrial fibrillation (CMS/HCC) (HCC) 07/03/2024 10:15 AM MACHINE SET UP TECHNICIAN Office Visit [facility] Cardiology [address] [place] [address] [place] [address] [place] [address] Campbell Pham MD Atrial fibrillation, unspecified type (HCC) (Primary Dx); Primary hypertension; Dyslipidemia from Last 3 Months Immunizations Immunization Administration Dates Next Due Influenza, Trivalent, High D ose, Split, Preservative Free, Intramuscular 09/19/2018 Influenza, Unspecified 05/09/2021 Surgical History Surgery Date Site/Laterality Comments CHOLECYSTECTOMY 08/09/1979 - 08/08/1980 APPENDECTOMY TOTAL ABDOMINAL HYSTERECTOMY W/ BILATERAL SALPINGOOPHORECTOMY 1979' GASTROPLASTY 08/09/1977 - 08/08/1978 BOWEL RESECTION '82, '96, '08 COLONOSCOPY 01/07/2021 - 02/05/2021 INSERT / REPLACE / REMOVE PACEMAKER 08/09/2014 - 015 UPPER GASTROINTESTINAL ENDOSCOPY Medical History Medical History Date Comments Atrial fibrillation (CMS/HCC) ([facility]) 2014, 2015 s/p ablation. Watchman procedure 01/23/2020 Hypertension Skin cancer History of colon polyps Heart block 2016 s/p [employer] pacemaker placement Crohn's colitis (CMS/HCC) ([facility]) dx 1992 Short gut syndrome Sleep apnea Family History Medical History Relation Name Comments Crohn's disease Brother 2 Crohn's dise ase; Hypertension Brother 3 Family history of hypertension - (Added by TW Conv) Diabetes Brother 4 Family history of diabetes mellitus (DM) - 2 brothers (Added by TW Conv) Heart disease Brother 5 Family history of heart disease - (Added by TW Conv) Heart disease Father Family history of heart disease - (Added by TW Conv) Hypertension Father Family history of hypertension - (Added by TW Conv) Diabetes Mother Family history of diabetes mellitus (DM) - 2 brothers (Added by TW Conv) Heart disease Mother Family history of heart disease - (Added by TW Conv) Hypertension Mother Family history of hypertension - (Added by TW Conv) Other Other 1 No family histo ry of Ulcerative colitis; Other Other 2 No family histo ry of Celiac disease; Other Other 3 No family histo ry of Colon polyps; Colon cancer Sister 2 Cancer, colon; Hypertension Sister 3 Family history of hypertension - (Added by TW Conv) Heart disease Sister 4 Family history of heart disease - (Added by TW Conv) Anesthesia problems Neg Hx Esophageal cancer Neg Hx Liver cancer Neg Hx Relation Name Status Comments Brother 1 Alive Brother 2 Brother 3 Brother 4 Brother 5 Father Mother Other 1 Other 2 Other 3 Sister 1 Alive Sister 2 Sister 3 Sister 4 Social History Tobacco Use Types Packs/Day Years Used Date Smoking Tobacco: Every Day Cigarettes 0.3 63.1 Started: 1961 Smokeless Tobacco: Never Tobacco Cessation:Ready to Q uit: Not Asked; Counseling Given: Not Answered Comments:Heavy smoker 1-1.5PPD x 50yrs - reduced to 1/2 PPD in 2018 Alcohol Use Standard Drinks/Week Comments Yes 3 (1 standard drink = 0.6 oz pur e alcohol) AUDIT-C Answer Date Recorded Q1: How often do you have a drink containing alc ohol? 2-3 times a week 05/09/2024 Q2: How many drinks containi ng alcohol do you have on a typical day when you are drinking? 1 or 2 05/09/2024 Q3: How often do you have si x or more drinks on one occasion? Never 05/09/2024 PHQ-2 Answer Date Recorded PHQ-2 Total Score (If total score is 3 or more points, staff should administer the PHQ-9) 0 06/13/2021 Personal Safety Answer Date Recorded Have you ever been in or are you currently in a harmful physical or emotional relationship or is someone making you feel afraid or unsafe? Denies 05/09/2024 Comments No Sex and Gender Information Value Date Recorded Sex Assigned at Not on file Legal Sex Female 11:42 PM MACHINE SET UP TECHNICIAN Gender Identity Not on file Sexual Orientation Not on file Obstetrics History Last Filed Vital Signs Vital Sign Reading Time Taken Comments Blood Pressure 146/82 07/03/2024 11:14 AM MACHINE SET UP TECHNICIAN Pulse 80 07/03/2024 11:14 AM MACHINE SET UP TECHNICIAN Temperature 36.9 C (98.5 F) 05/26/2024 10:38 AM CDT Respiratory Rate 20 05/09/2024 3:27 PM CDT Oxygen Saturation 99% 07/03/2024 11:14 AM MACHINE SET UP TECHNICIAN Inhaled Oxygen Concentration - - Weight 66.7 kg (147 lb 0.8 oz) 07/03/2024 11:14 AM MACHINE SET UP TECHNICIAN Height 165.1 cm (5' 5 ) 07/03/2024 11:14 AM MACHINE SET UP TECHNICIAN Body Mass Index 24.47 07/03/2024 11:14 AM MACHINE SET UP TECHNICIAN Plan of Treatment Health Maintenance Due Date Last Done Comments Hepatitis C Screening 1945 Zoster Vaccine (1 of 2) 12/14/1995 Well Visit 65+ 2010 Pneumococcal vaccine 65+ (2 of 2 - PPSV23) 08/15/2020 06/20/2020 Depression Screening 05/28/2022 05/28/2021, 05/28/20 21 DTaP/Tdap/Td Vaccine (2 - Td or Tdap) 09/07/2022 09/07/2012 Covid-19 Vaccine (3 - 2024-2 5 season) 2024 11/13/2020, 10/16/2020 Influenza Vaccine (#1) 2024 , 06/20/2020, 05/31/2019, Additional history exists Osteoporosis Screening-Bone Density Scan 12/24/2024 12/24/2022, 11/25/2021 Fall Risk Assessment 05/09/2025 05/09/2024 Hepatitis B Screening Completed 05/12/2022 Colon Cancer Screening-CT Colonography Discontinued 05/09/2024, 05/04/2023, 04/28/2022, Additional history exists Colon Cancer Screening-Colonoscopy Discontinued 05/09/2024, 05/04/2023, 04/28/2022, Additional history exists Colon Cancer Screening-DNA Stool Discontinued 05/09/2024, 05/04/2023, 04/28/2022, Additional history exists Colon Cancer Screening-FIT Discontinued 05/09, 05/04/2023, 04/28/2022, Additional history exists Colon Cancer Screening-FOBT Discontinued 08/2023, 05/04/2023, 04/28/2022, Additional history exists Colon Cancer Screening-Sigmoidoscopy Discontinued 05/09/2024, 05/04/2023, 04/28/2022, Additional history exists Colorectal Cancer Screening Discontinued Medical Devices Implanted Type Area Mig Welder Device Identifier Shelf Expiration Date Model / Serial / Lot [employer] Pete [id number] Fineline Ii Sterox Ez 1.7mm 58cm Bipolar Active Fixation Screw - [id number] - [id number] Implanted:Qt y: 1 on 06/13/2021 by Tad Donald DO at [facility] Lead Left: Heart [employer] Pete 05/03/2023 [id number] / [id number] / [employer] Pete [id number] Device Closure Watchman Pebax Nitinol [place] Iridium Pet 33mm L75cm Od12 Fr Odsec14 Fr 3 Way Stopcock Y Adapter Self Expand Proximal Face Sterile Disposable Left Atrial Appendage - [id number] - [id number] Implanted:Qt y: 1 on 01/23/2020 by Campbell Pham MD at [facility] Other - see comments N/A: Heart [employer] Pete 02/22/2022 [id number] / [id number] / [id number] Description:ARIANNA closure nita ce Device Arianna Watchman Procedure - [id number] - [id number] Implanted:Qt y: 1 on 01/23/2020 by Campbell Pham MD at [facility] Other - see comments [employer] Pete 02/22/2022 [id number] 1 - 3 PC / [id number] / Sammy Sci Pacemaker Chest [employer] C.R.M. L111 Essentio 4.45x5.02cm 2 Chamber Is1 Connector .75cm Pacemaker 13.7 - [id number] - [id number] Implanted:Qt y: 1 on 06/13/2021 by Tad Donald DO at [facility] Pacemaker Left: Chest Wall [employer] C.R.M. 04/17/2023 [id number] / [id number] / Procedures Procedure Name Priority Date/Time Associated Diagnosis Comments SCAN - LABS 09/11/2024 DEVICE CHECK - REMOTE Routine 07/24/2024 6:41 AM MACHINE SET UP TECHNICIAN DEVICE CHECK - IN OFFICE Routine 07/03/2024 10:18 AM MACHINE SET UP TECHNICIAN CHB (complete heart block) (CMS/HCC) (HCC) Fitting and adjustment of cardiac pacemaker Paroxysmal atrial fibrillation (CMS/HCC) (HCC) COLONOSCOPY 05/09/2024 2:21 PM CDT from Last 3 Months or Most Recently Relevant to Health Maintenance Results * SCAN - LABS (09/11/2024) us Provider Scanning Final Result * DEVICE CHECK - REMOTE (07/24/2024 6:41 AM MACHINE SET UP TECHNICIAN) Anatomical Region Laterality Modality Other 07/24/2024 6:41 AM MACHINE SET UP TECHNICIAN Narrative 09/21/2024 1:21 PM MACHINE SET UP TECHNICIAN Interpretation Summary: Battery and Leads (BL) Normal parameters noted on battery and lead(s) --- 4.5 years remaining (this is an estimate based on prior usage) Presenting Rhythm (OK) Ventricular Pacing (FINISH OPENER) --- rate 71 Arrhythmic events (AE) No new arrhythmic events in monitoring period Anticoagulation (AC) Patient is not on anticoagulant therapy Patient is status-post left atrial appendage occlusion device Transmission Information (TI) Device Summary Report Procedure Note Brandon Sifuentes MD PhD - 09/21/2024 Interpretation Summary: Battery and Leads (BL) Normal parameters noted on battery and lead(s) --- 4.5 years remaining(this is an estimate based on prior usage) Presenting Rhythm (OK) Ventricular Pacing (FINISH OPENER) --- rate 71 Arrhythmic events (AE) No new arrhythmic events in monitoring period Anticoagulation (AC) Patient is not on anticoagulant therapy Patient is status-post left atrial appendage occlusion device Transmission Information (TI) Device Summary Report us Brandon Sifuentes MD PhD [facility] [place] OCEDURES Final Result * DEVICE CHECK - IN OFFICE (07/03/2024 10:18 AM MACHINE SET UP TECHNICIAN) Anatomical Region Laterality Modality Other 07/03/2024 2:00 AM MACHINE SET UP TECHNICIAN Narrative 07/03/2024 3:07 PM MACHINE SET UP TECHNICIAN Interpretation Summary: Battery and Leads (BL) Normal parameters noted on battery and lead(s) --- battery longevity estimate: 3.5yrs. Magnet rate 100ppm Presenting Rhythm (OK) Atrial Fibrillation or Flutter Ventricular Pacing (FINISH OPENER) --- Underlying rhythm: AF/FINISH OPENER at 40bpm Anticoagulation (AC) Patient is not on anticoagulant therapy Patient is status-post left atrial appendage occlusion device Procedure Note Brandon Sifuentes MD PhD - 07/03/2024 Interpretation Summary: Battery and Leads (BL) Normal parameters noted on battery and lead(s) --- battery longevityestimate: 3.5yrs. Magnet rate 100ppm Presenting Rhythm (OK) Atrial Fibrillation or Flutter Ventricular Pacing (FINISH OPENER) --- Underlying rhythm: AF/FINISH OPENER at 40bpm Anticoagulation (AC) Patient is not on anticoagulant therapy Patient is status-post left atrial appendage occlusion device us Brandon Sifuentes MD PhD [facility] [place] OCEDURES Final Result * Colonoscopy (05/09/2024 2:21 PM CDT) Anatomical Region Laterality Modality Other Narrative Procedure Note Donovan Alberts MD PhD - 05/09/2024 2:21 PM CDT [facility]OS[facility] Patient Name: Eliana Byers Procedure Date: 05/09/2024 2:21 PM Date of : 1945 Admit Type: Outpatient Age: 78 Gender: Female Attending MD: Donovan Alberts MD,PHD Room: [facility] ENDOSCOPY ROOM 8 Note Status: Finalized Procedure: Colonoscopy Indications: High risk colon cancer surveillance: Personalhistory of Serrated Polyposis Syndrome, High risk coloncancer surveillance: Crohn's colitis of 8 (or more) years duration with one-third (or more) of the colon involved, Last colonoscopy: April 2023 Referring MD: Gwen Yancey MD Providers: Donovan Alberts MD, PHD Medicines: Monitored Anesthesia Care Complications: No immediate complications. Estimated Blood Loss: Estimated blood loss: none. Procedure: Pre-Anesthesia Assessment: - Immediately prior to administration ofmedications, the patient was re-assessed for adequacy to receive sedatives. - The risks and benefits of the procedure and the sedation options and risks were discussed with the patient. All questions were answered and informed consent was obtained. The benefits, risks and alternatives of theprocedure and sedation were discussed and informed consentwas obtained. All questions were answered. Please referto the signed informed consent document in the medical record. The scope was passed under direct vision.The CF [id number] endoscope was introduced through the anus and advanced to the terminal ileum. The colonoscopy was performed without difficulty. The patient tolerated the procedure well. The qualityof the bowel preparation was excellent. The quality of the bowel preparation was evaluated using the BBPS (Norton Bowel Preparation Scale) with scores of:Right Colon = 3, Transverse Colon = 3 and Left Colon = 3 (entire mucosa seen well with no residual staining, small fragments of stool or opaque liquid). Thetotal BBPS score equals 9. The bowel preparation used was SUPREP via split dose instruction. Bowel prep was administered using a split dose. AI Technology was utilized during the procedure to aid in polyp detection. Findings: Hemorrhoids were found on perianal exam. There was evidence of a prior end-to-side ileo-colonic anastomosis in the ascending colon. This was patent. The anastomosis wastraversed. The giselle-terminal ileum appeared normal. Three Haydee classification Is (protruding, sessile) polyps were foundin the transverse colon. The polyps were 8 to 10 mm in size. Thesepolyps were removed with a cold snare. Resection and retrieval werecomplete. A 10 mm polyp was found in the sigmoid colon. The polyp was Haydee classification Is (protruding, sessile). The polyp was removed with a cold snare. Resection and retrieval were complete. The exam was otherwise without abnormality on direct and retroflexion views. Impression: - Hemorrhoids found on perianal exam. - Patent end-to-side ileo-colonic anastomosis. - The examined portion of the ileum was normal. - Three 8 to 10 mm polyps in the transverse colon, removed with a cold snare. Resected andretrieved. - One 10 mm polyp in the sigmoid colon, removedwith a cold snare. Resected and retrieved. - The examination was otherwise normal on directand retroflexion views. Recommendation: - Await pathology results. - Repeat colonoscopy in 1 year (sessile polyposis syndrome, 58 polyps since 2017) for surveillancebased on pathology results. - Return to GI clinic as previously scheduled. Attending Participation: I personally performed the entire procedure. Electronically signed by Donovan Alberts MD. Donovan Alberts MD, PHD 05/09/2024 3:03:35 PM Number of Addenda: 0 Note Initiated On: 05/09/2024 2:21 PM Donovan Alberts MD PhD ENDOSCOPY PROCEDURES [place] l Result from Last 3 Months or Most Recently Relevant to Health Maintenance Insurance MEDICARE [facility] PREFERRED [facility] TRADITIONAL BLUE TRADITIONAL OOS MEDICARE BLUE TRADITIONAL OOS MEDICARE [place] TRADITIONAL OOS Member Subscriber Plan / Payer (Ef fective 2010-Present) Name:Jakob Eliana Marc Relation to Subscriber:Self Name:Byers, Eliana Marc Payer ID:[id number] (NAIC) Type:Microstim Address: [address] MEDICARE [facility] OOS Advance Directives For more information, please contact: [phone] * Full Code (Latest Code Status on File) Date Activated Date Inactivated Comments 05/09/2024 1:03 PM 05/09/2024 8:04 PM * Full Code Date Activated Date Inactivated Comments 05/04/2023 10:01 AM 05/04/2023 4:46 PM * Full Code Date Activated Date Inactivated Comments 04/28/2022 10:46 AM 04/28/2022 5:44 PM * Full Code Date Activated Date Inactivated Comments 06/13/2021 12:46 PM 06/14/2021 6:03 PM * Full Code Date Activated Date Inactivated Comments 05/24/2021 9:49 PM 05/26/2021 7:23 PM Care Teams Design Drafter Relationship Specialty Start Date End Date Gwen Yancey MD [address] [place] [address] PCP - General Family Medicine 01/01/21 Donovan Alberts MD PhD [address] [place] [address] Referring Physician Gastroenterology 12/31/20 Tucker Barrera MD [address] [facility] [place] [phone] [place] [address] Surgeon Colon and Rectal Surgery 12/31/20
--- OUTSIDE RECORDS SUMMARY | 2024-09-26 11:02 | XMS_ITS | Continuity of Care Document ---
Author Organization [facility] Address [address] [place] [address] [address] [place] [address] Phone Care Team Providers Care Dental Ceramist Name Role Phone Zahraa Alberts Unavailable Unavailable Procedures Procedure Date Removal Of Skin Lesion Advance Directives Directive Yes / No Effective Date File Name No Information Encounters Encounter Description Practice Location Reason(s) For Visit Diagnoses Date Provider Providers Copied on Encounter [facility], [id number] [place] [address] [address], [place], [place], [id number], [place] tel:[phone] [facility] [place] No Information [phone] [facility] , [address], [place], [address], [place]. tel:[phone] Family History Family Member Type Diagnosis Age At Onset No Information Payers Payer name Insurance type Covered libertarian ID Authoriza tion(s) No Information Social History Type Description Quantity Date Captured Comments Sex Female Smoking Status No Information Chief Complaint And Reason For Visit No Information Reason For Referral Reason For Referral No Information History Of Present Illness Encounter Date Complaint History Of Prese nt Illness No Information Functional Status Date Functional Assessmen t No Information Instructions Date Instruction Additional Infor mation No Information Assessments Type Assessment Date No Information Patient Care Teams Name Effective Dates (start - stop) Status Members No Information
--- OUTSIDE RECORDS SUMMARY | 2024-09-26 11:02 | XMS_ITS | Encounter Summary ---
Author Organization [facility] Address [address] [place] [address] Care Team Providers Care It Administrator Name Role Phone Gwen Yancey MD Primary Care Provider Encounter Details Date Type Department Care Team (Late st Contact Info) Description 06/19/2022 Therapy Plan [facility] [address] [place] [address] Jett Gonzales MD [address] [place] [id number] Social History Tobacco Use Types Packs/Day Years Used Date Smoking Tobacco: Every Day Cigarettes Comments No Sex and Gender Information Value Date Recorded Sex Assigned at Female 08/29/2024 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
--- OUTSIDE RECORDS SUMMARY | 2024-09-26 11:02 | XMS_ITS | Referral Summary ---
Author Organization [facility] Address [address] [place] [address] Care Team Providers Care Aquacultural Worker Supervisor Name Role Phone Donovan Alberts MD PhD Unavailable [phone] Tucker Barrera MD Unavailable [phone] Gwen Yancey MD Primary Care Provider Encounters Date Type Department Care Team Description 09/21/2024 Telephone [facility] G[facility]enterology [address] [facility] Medicine 12th [place] [address] [place] [address] Stacey Cifuentes RN FU on K recommendation 09/15/2024 Telephone [facility] G[facility] 12th [place] [address] [place] [address] Betty Zuniga RN 09/15/2024 Orders Only [facility] [address] [facility] 12th [place] [address] [place] [address] Donovan Alberts MD PhD 09/15/2024 Telephone [facility] [address] [facility] 12th [place] [address] [place] [address] Betty Zuniga, RN 09/15/2024 Telephone [facility] [address] [facility] Medicine 12th [place] [address] [place] [address] Betty Zuniga, RN 09/14/2024 Telephone [facility] G[facility]enterology [address] [place] [address] [place] [address] [place] [address] Stacey Cifuentes, coal conveyor operator Results 09/11/2024 Orders Only [facility] Scanning, Provider 09/11/2024 Documentation [facility] [address] [place] [address] [place] [address] Stacey Cifuentes RN Labs results - CBC, CMP, CRP, TB, HBV serologies 07/24/2024 Orders Only [facility] Card[facility] [address] [place] [address] Brandon Sifuentes MD PhD 07/20/2024 Telephone [facility] G[facility]enterology [address] [place] [address] [place] [address] Betty Zuniga RN 07/03/2024 11:15 AM BIT BENDER Office Visit [facility] Cardiology [address] [place] [address] [place] [address] Brandon Sifuentes MD PhD Adjustment and management of cardiac pacemaker (Primary Dx); Persistent atrial fibrillation (HCC); Complete atrioventricular block (CMS/HCC) (HCC) 07/03/2024 10:45 AM BIT BENDER Ancillary Procedure [facility] [address] [place] [id number] CHB (complete heart block) (CMS/HCC) (HCC) (Primary Dx); Fitting and adjustment of cardiac pacemaker; Paroxysmal atrial fibrillation (CMS/HCC) (HCC) 07/03/2024 10:15 AM BIT BENDER Office Visit [facility] [address] [place] [address] [place] [address] Campbell Pham MD Atrial fibrillation, unspecified type (HCC) (Primary Dx); Primary hypertension; Dyslipidemia from Last 3 Months Allergies Active Allergy Reactions Criticality Noted Date [...] (01/09/2020): Added automatically from request for surgery [id number] Assessment & Plan (01/28/2020 4:11 PM CDT): Hgb 9.3->7.6. No overt bleeding. - Hgb > 7 - Trend CBC - Monitor closely for bleed Vitamin D deficiency 10/06/2019 Assessment & Plan (01/27/2020 10:21 PM CDT): - Recheck levels Assessment & Plan (01/23/2020 4:06 PM CDT): - continue vitamin D 2000 units daily Assessment & Plan (10/06/2019 5:20 PM BIT BENDER): Patient was given vitamin-D supplementation will check for its adequacy today. Absolute anemia 10/06/2019 Assessment & Plan (12/20/2021 10:44 AM CDT): The patient's hemoglobin seemed to dip with her recent admission. We would like to recheck her CBC soon. Assessment & Plan (10/06/2019 5:23 PM BIT BENDER): The patient is scheduled to see the vp global on Wednesday. We will repeat his CBC for our records but will not do an extensive workup beyond rechecking thiopurines metabolites as we will leave that to the vp global. We would like to get copies of [...] 04/21/2019 Assessment & Plan (10/06/2019 5:20 PM BIT BENDER): Patient's weight is stable but it has [...] 04/21/2019 Assessment & Plan (10/06/2019 5:17 PM BIT BENDER): As her most recent colonoscopy in [facility] was done for assessment of active [...] medication. Assessment & Plan (10/06/2019 5:19 PM BIT BENDER): This likely contributes to her stool frequency [...] (01/06/2019): Added automatically from request for surgery [id number] Assessment & Plan (12/20/2021 10:40 AM CDT): [...] AM Assessment & Plan (10/06/2019 5:17 PM BIT BENDER): Seemingly the patient's symptoms are stable and [...] daily Assessment & Plan (09/19/2018 12:02 PM BIT BENDER): Continue ezetimibe Assessment & Plan (09/16/2018 11:03 PM BIT BENDER): Continue ezetimibe Presence of cardiac pacemaker 10/24/2015 [...] PPM Assessment & Plan (09/19/2018 12:02 PM BIT BENDER): -s/p device interrogation, Normal device function with appropriate lead output and sensing. Increased RV sensitivity 2.5 mV to 4.0 mV; otherwise no changes made -pt states she continues to have intermittent dizziness but thinks it could be due to her new eye glasses. Assessment & Plan (09/18/2018 12:23 PM BIT BENDER): -s/p device interrogation, increased RV sensitivity Atrial [...] daily Assessment & Plan (09/19/2018 11:49 AM BIT BENDER): AV paced -Continue apixaban Assessment & Plan (09/18/2018 12:22 PM BIT BENDER): AV paced -Continue apixaban Hypertension 11/11/2010 Assessment & Plan (01/27/2020 10:17 PM CDT): - Hold home BP meds per above Assessment & Plan (01/23/2020 4:05 PM CDT): - continue HCTZ 25 mg daily Assessment & Plan (09/19/2018 12:04 PM BIT BENDER): At goal -c/w home lisinopril 30 mg daily, HCTZ 25 mg daily for now Assessment & Plan (09/18/2018 12:24 PM BIT BENDER): At goal -pending orthostatics, c/w home lisinopril [...] (05/08/2021): Added automatically from request for surgery [id number] Tobacco abuse 07/03/2019 06/26/2022 Assessment & Plan (01/27/2020 10:21 PM CDT): - Current smoker 1/2 PPD (has 60 PY history) H/O adenomatous polyp of colon 01/06/2019 10/22/2023 Overview (01/06/2019): Added automatically from request for surgery [id number] Assessment & Plan (12/20/2021 10:41 AM CDT): Happily the patient had no polyps on her last colonoscopy. She will need a repeat colonoscopy this summer and should likely stay on at least annual scopes given her frequency of polyps. Crohn's disease of small and large intestines with complication 11/02/2018 04/21/2019 Overview (11/02/2018): Added automatically from request for surgery [id number] Crohn's disease of both smal l and large intestine with unspecified complications 12/06/2017 04/21/2019 Assessment & Plan (09/19/2018 12:02 PM BIT BENDER): Stable -c/w home azathioprine Assessment & Plan (09/18/2018 12:23 PM BIT BENDER): Stable -c/w home azathioprine Assessment & Plan (12/06/2017 9:23 AM CDT): 1. Continue Imuran 150 mg daily and folic acid 800 mcg daily. 2. CBC, CMP every 3 months. 3. Follow-up colonoscopy with Dr. Alberts currently. Crohn's disease ([facility]) 12/23/2013 Overview (11/11/2016): Crohns disease Assessment & [...] persist despite PPI therapy. Obesity 11/14/2012 01/27/2020 Immunizations Immunization Administration Dates Next Due Influenza, Trivalent, High D ose, Split, Preservative Free, Intramuscular 09/19/2018 Influenza, Unspecified 05/09/2021 Social History Tobacco Use Types Packs/Day Years [...] on file Legal Sex Female 11:42 PM BIT BENDER Gender Identity Not on file Sexual Orientation Not on file Last Filed Vital Signs Vital Sign Reading Time Taken Comments Blood Pressure 146/82 07/03/2024 11:14 AM BIT BENDER Pulse 80 07/03/2024 11:14 AM BIT BENDER Temperature 36.9 C (98.5 F) 05/26/2024 10:38 AM CDT Respiratory Rate 20 05/09/2024 3:27 PM CDT Oxygen Saturation 99% 07/03/2024 11:14 AM BIT BENDER Inhaled Oxygen Concentration - - Weight 66.7 kg (147 lb 0.8 oz) 07/03/2024 11:14 AM BIT BENDER Height 165.1 cm (5' 5 ) 07/03/2024 11:14 AM BIT BENDER Body Mass Index 24.47 07/03/2024 11:14 AM BIT BENDER Plan of Treatment Not on file Medical Devices Implanted Type Area Recycling Collections Driver Device Identifier Shelf Expiration Date Model / Serial / Lot [employer] Pete [id number] Fineline Ii Sterox Ez 1.7mm 58cm Bipolar Active Fixation Screw - [id number] - [id number] Implanted:Qt y: 1 on 06/13/2021 by Tad Donald DO at [facility] Lead Left: Heart [employer] Pete 05/03/2023 [id number] / [id number] / [employer] Pete [id number] Device Closure Watchman Pebax Nitinol Huslia Iridium Pet 33mm L75cm Od12 Fr Odsec14 Fr 3 Way Stopcock Y Adapter Self Expand Proximal Face Sterile Disposable Left Atrial Appendage - [id number] - [id number] Implanted:Qt y: 1 on 01/23/2020 by Campbell Pham MD at [facility] Other - see comments N/A: Heart [employer] Pete 02/22/2022 [id number] / [id number] / [id number] Description:ARIANNA closure nita ce Device Arianna Watchman Procedure - [id number] - [id number] Implanted:Qt y: 1 on 01/23/2020 by Campbell Pham MD at [facility] Other - see comments [employer] Pete 02/22/2022 [id number] 1 - 3 PC / [id number] / Sammy Sci Pacemaker Chest [employer] C.R.M. L111 Essentio 4.45x5.02cm 2 Chamber Is1 Connector .75cm Pacemaker 13.7 - [id number] - [id number] Implanted:Qt y: 1 on 06/13/2021 by Tad Donald DO at [facility] Pacemaker Left: Chest Wall [employer] C.R.M. 04/17/2023 [id number] / [id number] / Procedures Procedure Name Priority Date/Time Associated Diagnosis Comments SCAN - LABS 09/11/2024 DEVICE CHECK - REMOTE Routine 07/24/2024 6:41 AM BIT BENDER DEVICE CHECK - IN OFFICE Routine 07/03/2024 10:18 AM BIT BENDER CHB (complete heart block) (CMS/HCC) (HCC) Fitting and adjustment of cardiac pacemaker Paroxysmal atrial fibrillation (CMS/HCC) (HCC) COLONOSCOPY 05/09/2024 2:21 PM CDT from Last 3 Months or Most Recently Relevant to Health Maintenance Results * SCAN - LABS (09/11/2024) Provider Scanning Final Result * DEVICE CHECK - REMOTE (07/24/2024 6:41 AM BIT BENDER) Anatomical Region Laterality Modality Other 07/24/2024 6:41 AM BIT BENDER Narrative 09/21/2024 1:21 PM BIT BENDER Interpretation Summary: Battery and Leads (BL) Normal parameters noted on battery and lead(s) --- 4.5 years remaining (this is an estimate based on prior usage) Presenting Rhythm (UT) Ventricular Pacing (SOIL SCIENCE TEACHER) --- rate 71 Arrhythmic events (AE) No [...] estimate based on prior usage) Presenting Rhythm (UT) Ventricular Pacing (SOIL SCIENCE TEACHER) --- rate 71 Arrhythmic events (AE) No new arrhythmic events in monitoring period Anticoagulation (AC) Patient is not on anticoagulant therapy Patient is status-post left atrial appendage occlusion device Transmission Information (TI) Device Summary Report Brandon Sifuentes MD PhD [facility] [place] OCEDURES Final Result * DEVICE CHECK - IN OFFICE (07/03/2024 10:18 AM BIT BENDER) Anatomical Region Laterality Modality Other 07/03/2024 2:00 AM BIT BENDER Narrative 07/03/2024 3:07 PM BIT BENDER Interpretation Summary: Battery and Leads (BL) Normal parameters noted on battery and lead(s) --- battery longevity estimate: 3.5yrs. Magnet rate 100ppm Presenting Rhythm (UT) Atrial Fibrillation or Flutter Ventricular Pacing (SOIL SCIENCE TEACHER) --- Underlying rhythm: AF/SOIL SCIENCE TEACHER at 40bpm Anticoagulation (AC) Patient is not on anticoagulant therapy Patient is status-post left atrial appendage occlusion device Procedure Note Brandon Sifuentes MD PhD - 07/03/2024 Interpretation Summary: Battery and Leads (BL) Normal parameters noted on battery and lead(s) --- battery longevityestimate: 3.5yrs. Magnet rate 100ppm Presenting Rhythm (UT) Atrial Fibrillation or Flutter Ventricular Pacing (SOIL SCIENCE TEACHER) --- Underlying rhythm: AF/SOIL SCIENCE TEACHER at 40bpm Anticoagulation (AC) Patient is not on anticoagulant therapy Patient is status-post left atrial appendage occlusion device us Brandon Sifuentes MD PhD [facility] [place] OCEDURES Final Result * Colonoscopy (05/09/2024 2:21 PM CDT) Anatomical Region Laterality Modality Other Narrative Procedure Note Donovan Alberts MD PhD - 05/09/2024 2:21 PM CDT [facility] Patient Name: Eliana Byers Procedure Date: 05/09/2024 2:21 PM Date of : 1945 Admit Type: Outpatient Age: 78 Gender: Female Attending MD: Donovan Alberts MD,PHD Room: [facility] 8 Note Status: Finalized Procedure: [...] The scope was passed under direct vision.The [id number] endoscope was introduced through the anus and advanced to the terminal ileum. The colonoscopy was performed without difficulty. The patient tolerated the procedure well. The qualityof the bowel preparation was excellent. The quality of the bowel preparation was evaluated using the BBPS (Hobgood Bowel Preparation Scale) with scores of:Right Colon [...] Recently Relevant to Health Maintenance Insurance MEDICARE ANTHEM PREFERRED ANTH TRADITIONAL BLUE TRADITIONAL OOS MEDICARE BLUE TRADITIONAL OOS MEDICARE ERICK TRADITIONAL OOS ANTH ACCESS MEDICARE ERICK TRADITIONAL OOS Advance Directives For more information, please contact: [phone] * Full Code (Latest Code Status on [...] 9:49 PM 05/26/2021 7:23 PM Care Teams Aquacultural Worker Supervisor Relationship Specialty Start Date End Date Gwen Yancey MD [address] [place] [address] PCP - General Family Medicine 01/01/21 Donovan Alberts MD PhD [address] [place] [address] Referring Physician Gastroenterology 12/31/20 Tucker Barrera MD [address] [facility] [id number] [place] [address] Surgeon Colon and Rectal Surgery 12/31/20
--- OUTSIDE RECORDS SUMMARY | 2024-09-26 11:02 | XMS_ITS | Clinical Summary ---
Author Organization [facility] Address [address] [place] [address] Care Team Providers Care Photostat Operator Helper Name Role Phone Austin Linares MD Primary Care Provider Allergies Active Allergy Reactions Criticality Noted Date Comments Ibuprofen Rash,Itching,Other ( see comment) Medium 11/09/2016 PCP instructed patient not to take. Naproxen Rash,Itching,Other ( see comment) Medium 11/09/2016 PCP instructed not to take. Medications ezetimibe 10 MG tablet Take 1 tablet (10 mg total) by mouth nightly at bedtime. 01/30/2019 Active TOPROL XL 25 MG 24 hr tablet Take 2 tablets (50 mg total) by mouth nightly. 04/11/2019 Active magnesium oxide 400 MG tablet Take 1 tablet (400 mg total) by mouth daily. 09/20/2018 Active Folic Acid 0.8 MG Cap Take 0.8 mg by mouth daily. Active ferrous sulfate, 65 mg elemental, 325 (65 FE) MG tablet Take 1 tablet (325 mg total) by mouth 3 (three) times daily. 09/27/2019 Active aspirin EC (ECOTRIN) 81 MG tablet Take 1 tablet (81 mg total) by mouth daily. Active potassium chloride CR (K-TAB) 20 MEQ tablet Take 2 tablets (40 mEq total) by mouth daily. 11/16/2022 Active cyanocobalamin (B-12) 1000 MCG/ML injection Inject 1 mL (1,000 mcg total) into the muscle. 12/19/2021 Active vitamin B-12 (CYANOCOBALAMIN ) 500 MCG tablet Take 10 tablets (5,000 mcg total) by mouth daily. Active furosemide (LASIX) 40 MG tablet Take 0.5 tablets (20 mg total) by mouth daily. 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 PPI therapy as above. If symptoms persist, call office. Skin lesion of right arm 11/09/2016 Dyslipidemia 06/30/2016 Overview (04/25/2019): Last Assessment & Plan: Continue ezetimibe Complete atrioventricular block ([facility] ) 10/24/2015 Overview (04/25/2019): Last Assessment & Plan: -s/p device interrogation, Normal device function with appropriate lead output and sensing. Increased RV sensitivity 2.5 mV to 4.0 mV; otherwise no changes made -pt states she continues to have intermittent dizziness but thinks it could be due to her new eye glasses. Presence of cardiac pacemaker 10/24/2015 Esophageal dysphagia 12/23/2013 Overview (04/25/2019): Overview: GERD (gastroesophageal reflux disease) Last Assessment & Plan: 1. Patient declined barium swallow and EGD currently. Based on prior EGD in 2015 performed for similar symptoms and findings consistent with reflux, recommended omeprazole 40 mg daily x1 month. Instructed to call office if symptoms worsen or persist despite PPI therapy. Obesity 11/14/2012 Atrial fibrillation ([facility]) 11/11/2010 Overview (04/25/2019): Last Assessment & Plan: AV paced -Continue apixaban Hypertension 11/11/2010 Overview (04/25/2019): Last Assessment & Plan: At goal -c/w home lisinopril 30 mg daily, HCTZ 25 mg daily for now Encounters Date Type Department Care Team Description 08/29/2024 9:00 AM EXTRACTOR OPERATOR HELPER - 08/29/2024 11:59 PM EXTRACTOR OPERATOR HELPER Hospital Encounter [facility] Mammography [address] [place] [address] Austin Linaers MD Discharge Disposition: Home or Self Care (Routine Discharge) 08/29/2024 Travel 08/17/2024 10:03 AM EXTRACTOR OPERATOR HELPER - 08/17/2024 11:15 AM EXTRACTOR OPERATOR HELPER Hospital Encounter [facility] [address] [place] [address] Austin Linares MD Discharge Disposition: Home or Self Care (Routine Discharge) 08/17/2024 Transcribe Orders [facility] Pre Access Team [address] [place] [address] Austin Linares MD 08/17/2024 Transcribe Orders [facility] Pre Access Team [address] [place] [address] Austin Linares MD 08/17/2024 Travel 07/28/2024 10:46 AM EXTRACTOR OPERATOR HELPER - 07/28/2024 11:59 PM EXTRACTOR OPERATOR HELPER Hospital Encounter [facility] CT [address] [place] [address] Austin Linares MD Discharge Disposition: Home or Self Care (Routine Discharge) 07/28/2024 Travel 07/26/2024 4:06 PM EXTRACTOR OPERATOR HELPER - 07/26/2024 11:59 PM EXTRACTOR OPERATOR HELPER Hospital Encounter [facility] Ultrasound [address] [place] [address] [place] [address] Austin Linares MD Discharge Disposition: Home or Self Care (Routine Discharge) 07/26/2024 Travel from Last 3 Months Immunizations Name Administration Dates Next Due Fluzone High Dose - >Age 65 (Prefilled Syringe) 05/17/2017 Influenza Adult (Generic) 09/19/2018,05/07/2016 Tdap (Generic) 09/07/2012 Family History Medical History Relation Comments Hyperlipidemia Father Hypertension Father Hyperlipidemia Mother Hypertension Mother Breast Cancer Neg Hx Relation Status Comments Father Mother Social History Tobacco Use Types Packs/Day Years Used Date Smoking Tobacco: Every Day Cigarettes Passive Smoke Exposure: Current Smokeless Tobacco: Never Tobacco Cessation:Ready to Q uit: Yes; Counseling Given: Yes Comments:MD to educational guidance counselor Alcohol Use Standard Drinks/Week Comments Yes 0 (1 standard drink = 0.6 oz pur e alcohol) Seldom PHQ-2 Answer Date Recorded Patient Health Questionnaire-2 Score 0 11/24/2022 Comments No Sex and Gender Information Value Date Recorded Sex Assigned at Female 08/29/2024 9:02 AM EXTRACTOR OPERATOR HELPER Legal Sex Female 7:42 PM CDT Gender Identity Not on file Sexual Orientation Not on file Last Filed Vital Signs Vital Sign Reading Time Taken Comments Blood Pressure 166/76 08/17/2024 10:11 AM EXTRACTOR OPERATOR HELPER Pulse 85 01/06/2024 11:45 AM CDT Temperature 36.6 C (97.8 F) 08/17/2024 10:11 AM EXTRACTOR OPERATOR HELPER Respiratory Rate 18 01/06/2024 11:45 AM CDT Oxygen Saturation 99% 08/17/2024 10:11 AM EXTRACTOR OPERATOR HELPER Inhaled Oxygen Concentration - - Weight 69.6 kg (153 lb 6.4 oz) 11/11/2023 10:55 AM CDT Height 157.5 cm (5' 2 ) 11/11/2023 10:55 AM CDT Body Mass Index 28.06 11/11/2023 10:55 AM CDT Plan of Treatment Health Maintenance Due Date Last Done Comments ASCVD LDL 1945 ASCVD Statin 1945 Pneumococcal Vaccine: 65+ Years (1 of 2 - PCV) 12/14/1951 Hepatitis C 12/14/1963 Zoster Vaccines (1 of 2) 12/14/1995 Annual Medicare Wellness Visit 2010 RSV Immunization or 60+ Years (1 - 1-dose 75+ series) 2020 DTaP, Tdap and Td Vaccines (2 - Td or Tdap) 09/07/2022 09/07/2012 PHQ-2 (Physician [place]) 11/25/2023 11/24/2022 COVID-19 Vaccine ( - season) 2024 Influenza Adult (#1) 2024 05/09/2021, 09/19/2018, 05/17/2017, Additional history exists PHQ-2 (Physician [place]) 08/09/2024 11/24/2022 Dexa Scan (General) Completed 12/24/2022, Meningococcal B Vaccine Aged Out No l onger eligible based on patient's age to complete this topic Meningococcal Vaccine Aged Out No kayla joseph eligible based on patient's age to complete this topic RSV Immunizations Under 20 Months Aged Out No longer eligible based on patient's age to complete this topic Procedures Procedure Name Priority Date/Time Associated Diagnosis Comments US BREAST LT [employer] Routine 08/29/2024 10:27 AM EXTRACTOR OPERATOR HELPER Abnormal mammogram MG DIAG ADD VIEW W WADE LT Routine 08/29/2024 9:30 AM EXTRACTOR OPERATOR HELPER Abnormal mammogram CT SOFT TISSUE NECK W CON STAT 07/28/2024 11:10 AM EXTRACTOR OPERATOR HELPER Lymphadenopathy US SOFT TISS HEAD OR NECK STAT 07/26/2024 4:35 PM EXTRACTOR OPERATOR HELPER Lymphadenopathy BONE DENSITY/DEXA Routine 12/24/2022 2:3 1 PM CDT Stress fracture of right tibia, initial encounter Stress fracture of right femur, initial encounter Other specified disorders of bone density and structure, right lower leg from Last 3 Months or Most Recently Relevant to Health Maintenance Results * US BREAST LT [employer] (08/29/2024 10:27 AM EXTRACTOR OPERATOR HELPER) Anatomical Region Laterality Modality Breast Left Computed Tomogra phy 08/29/2024 10:3 9 AM EXTRACTOR OPERATOR HELPER Impressions 08/29/2024 10:41 AM EXTRACTOR OPERATOR HELPER ===== IMPRESSION: ===== 1. The asymmetry was due to overlapping glandular tissue. Assessment: ACR BI-RADS 2 - BENIGN FINDING(S) Recommendation: 1:Routine Screening Bilateral Comments: Ordered By: AUSTIN LINARES Interpreted By: Tyler Perez MD, 08/29/2024 10:39 AM Narrative 08/29/2024 10:41 AM EXTRACTOR OPERATOR HELPER [address] [place] [address] Examination: Digital left diagnostic mammogram with 3-D tomography and left breast ultrasound. [id number] Exam Date/Time: 08/29/2024 9:06 AM Reason For Exam: abnormal mammogram abnormal screening mammogram. Comparison: Priors including July 21, 2024, June 17, 2023, January 29, 2021. Technique: Digital diagnostic mammography of the left breast was performed in addition to 3-D Tomosynthesis technique. This study was read with the assistance of a computer-aided detection system. Grayscale and color Doppler images left breast. Tissue density: There are scattered areas of fibroglandular density. Findings:The area of asymmetry within the medial left breast compresses out after compression is applied. This is similar as compared back to prior mammograms. Subsequent targeted ultrasound of the area is performed. The 9:00 position 3 cm from the nipple there is normal glandular tissue. No suspicious changes. us Austin Linares MD ULTRASOUND Final Result * MG DIAG ADD VIEW W WADE LT (08/29/2024 9:30 AM EXTRACTOR OPERATOR HELPER) Anatomical Region Laterality Modality Left Mammography, Oth er, Computed Tomography 08/29/2024 10:3 9 AM EXTRACTOR OPERATOR HELPER Impressions 08/29/2024 10:41 AM EXTRACTOR OPERATOR HELPER ===== IMPRESSION: ===== 1. The asymmetry was due to overlapping glandular tissue. Assessment: ACR BI-RADS 2 - BENIGN FINDING(S) Recommendation: 1:Routine Screening Bilateral Comments: Ordered By: AUSTIN LINARES Interpreted By: Tyler Perez MD, 08/29/2024 10:39 AM Narrative 08/29/2024 10:41 AM EXTRACTOR OPERATOR HELPER [address] [place] [address] Examination: Digital left diagnostic mammogram with 3-D tomography and left breast ultrasound. [id number] Exam Date/Time: 08/29/2024 9:06 AM Reason For Exam: abnormal mammogram abnormal screening mammogram. Comparison: Priors including July 21, 2024, June 17, 2023, January 29, 2021. Technique: Digital diagnostic mammography of the left breast was performed in addition to 3-D Tomosynthesis technique. This study was read with the assistance of a computer-aided detection system. Grayscale and color Doppler images left breast. Tissue density: There are scattered areas of fibroglandular density. Findings:The area of asymmetry within the medial left breast compresses out after compression is applied. This is similar as compared back to prior mammograms. Subsequent targeted ultrasound of the area is performed. The 9:00 position 3 cm from the nipple there is normal glandular tissue. No suspicious changes. us Austin Linares MD MAMMO Final Result * CT SOFT TISSUE NECK W CON (07/28/2024 11:10 AM EXTRACTOR OPERATOR HELPER) Anatomical Region Laterality Modality Neck Computed Tomogra phy 07/28/2024 11:2 0 AM EXTRACTOR OPERATOR HELPER Impressions 07/28/2024 11:27 AM EXTRACTOR OPERATOR HELPER IMPRESSION: 1. Somewhat proptotic and questionable hyperemic right submandibular gland with punctate sialolith noted. Questionable hyperemia of the left submandibular and bilateral parotid glands. Findings could reflect sialoadenitis, though there is no significant surrounding inflammation or fluid collections. Please correlate clinically. 2. No suspicious mass lesion or lymphadenopathy elsewhere in the neck. 3. Atherosclerosis. 4. Please see above for additional chronic, incidental, and nonemergent findings elsewhere. Ordered By: AUSTIN LINARES Interpreted By: Pavan Hirsch MD, 07/28/2024 11:20 AM Narrative 07/28/2024 11:27 AM EXTRACTOR OPERATOR HELPER [address] [place] [address] DATE: 07/28/2024 10:54 AM INDICATION: Right anterior neck lump. EXAMINATION: CT neck with contrast. TECHNIQUE: CT examination of the neck was performed after administration of 100mL IOPAMIDOL 76 % IV SOLN without adverse event with axial and multiplanar reformatted images obtained. A dose lowering technique was used for this procedure, which may include, but is not limited to, dose reduction technique, automated exposure control, the use of iterative reconstruction, and ALARA (As Low As Reasonably Achievable) / Image Gently techniques. COMPARISON: Ultrasound 07/26/2024. CTA 11/04/2023 FINDINGS: Note: Not localizing cutaneous markers were placed on the patient's neck to assist in identifying the palpable abnormality. The right submandibular gland appear somewhat proptotic and demonstrates somewhat heterogeneous increased enhancement with a punctate sialolith noted. No significant surrounding inflammation or fluid collections. The left submandibular and bilateral parotid glands also appear somewhat hyperemic, but with no significant surrounding inflammation. Maxilla is edentulous. Streak artifact from mandibular dental hardware somewhat obscures assessment. Probable small left lingual tonsil retention cyst, similar to prior CTA. Otherwise the visualized oral cavity, nasopharynx, remainder of the oropharynx, hypopharynx, and larynx appear unremarkable. No suspicious cervical lymphadenopathy. Small ovoid low density nodule within the left submandibular subcutaneous soft tissues, possibly epidermal inclusion cyst, unchanged from prior. Carotid atherosclerosis. Major neck vascular structures are otherwise patent. Asymmetrically prominent caliber of the right internal jugular vein, probably developmental. No overt inflammatory changes or fluid collections seen elsewhere in the neck. Imaged portions of the intracranial compartment reveal atherosclerotic vascular calcifications. Mastoid air cells and paranasal sinuses clear. Bilateral lens replacements. Imaged portions of the upper chest reveal left-sided cardiac pacing device. Partially imaged watchman device. Aortic atherosclerosis. Granulomatous calcifications. Degenerative changes noted in the spine. Stable multilevel chronic compression deformities in the spine. Procedure Note Pavan Hirsch MD - 07/28/[address] [place] [address] DATE: 07/28/2024 10:54 AM INDICATION: Right anterior neck lump. EXAMINATION: CT neck with contrast. TECHNIQUE: CT examination of the neck was performed after administration of 100mLIOPAMIDOL 76 % IV SOLN without adverse event with axial and multiplanarreformatted images obtained. A dose lowering technique was used for this procedure, which may include,but is not limited to, dose reduction technique, automated exposurecontrol, the use of iterative reconstruction, and ALARA (As Low AsReasonably Achievable) / Image Gently techniques. COMPARISON: Ultrasound 07/26/2024. CTA 11/04/2023 FINDINGS: Note: Not localizing cutaneous markers were placed on the patient's neckto assist in identifying the palpable abnormality. The right submandibular gland appear somewhat proptotic and demonstratessomewhat heterogeneous increased enhancement with a punctate sialolithnoted. No significant surrounding inflammation or fluid collections. Theleft submandibular and bilateral parotid glands also appear somewhathyperemic, but with no significant surrounding inflammation. Maxilla is edentulous. Streak artifact from mandibular dental hardwaresomewhat obscures assessment. Probable small left lingual tonsil retentioncyst, similar to prior CTA. Otherwise the visualized oral cavity,nasopharynx, remainder of the oropharynx, hypopharynx, and larynx appearunremarkable. No suspicious cervical lymphadenopathy. Small ovoid lowdensity nodule within the left submandibular subcutaneous soft tissues,possibly epidermal inclusion cyst, unchanged from prior. Carotidatherosclerosis. Major neck vascular structures are otherwise patent.Asymmetrically prominent caliber of the right internal jugular vein,probably developmental. No overt inflammatory changes or fluid collectionsseen elsewhere in the neck. Imaged portions of the intracranial compartment reveal atheroscleroticvascular calcifications. Mastoid air cells and paranasal sinuses clear.Bilateral lens replacements. Imaged portions of the upper chest reveal left-sided cardiac pacingdevice. Partially imaged watchman device. Aortic atherosclerosis.Granulomatous calcifications. Degenerative changes noted in the spine.Stable multilevel chronic compression deformities in the spine. IMPRESSION: 1. Somewhat proptotic and questionable hyperemic right submandibular glandwith punctate sialolith noted. Questionable hyperemia of the leftsubmandibular and bilateral parotid glands. Findings could reflectsialoadenitis, though there is no significant surrounding inflammation orfluid collections. Please correlate clinically. 2. No suspicious mass lesion or lymphadenopathy elsewhere in the neck. 3. Atherosclerosis. 4. Please see above for additional chronic, incidental, and nonemergentfindings elsewhere. Ordered By: AUSTIN LINARES Interpreted By: Pavan Hirsch MD, 07/28/2024 11:20 AM Austin Linares MD CT Final Result * US SOFT TISS HEAD OR NECK (07/26/2024 4:35 PM EXTRACTOR OPERATOR HELPER) Anatomical Region Laterality Modality Head, Neck Computed Tomogra phy 07/26/2024 5:39 PM EXTRACTOR OPERATOR HELPER Impressions 07/26/2024 5:44 PM EXTRACTOR OPERATOR HELPER IMPRESSION: Abnormal soft tissue findings in the submandibular region bilaterally. Higher detail evaluation would require postcontrast neck CT. Referred By: AUSTIN LINARES Interpreted By: Nabil Houser MD, 07/26/2024 5:39 PM Narrative 07/26/2024 5:44 PM EXTRACTOR OPERATOR HELPER [address] [place] [address] EXAM: US SOFT TISS HEAD OR NECK DATE: 07/26/2024 COMPARISON: None INDICATION: Palpable lump at the mid right jaw line. TECHNIQUE: Grayscale and color Doppler imaging. FINDINGS: On the right side, there is an ovoid structure with a short axis dimension of 1.4 cm and a long axis dimension of 4 cm. Mildly heterogeneous grayscale echogenicity. Diffuse blood flow distribution with color Doppler. With no left-sided comparison, possible hyperemia due to inflammation or infection. In the location described, this is probably an enlarged submandibular gland. On the left side, there is a small hypoechoic nodule adjacent to the mandible. This measures about 0.6 x 1.2 cm. No blood flow demonstrated with Doppler. This is a less specific finding which could represent a lymph node. Procedure Note Nabil Houser MD - 07/26/[address] [place] [address] EXAM: US SOFT TISS HEAD OR NECK DATE: 07/26/2024 COMPARISON: None INDICATION: Palpable lump at the mid right jaw line. TECHNIQUE: Grayscale and color Doppler imaging. FINDINGS: On the right side, there is an ovoid structure with a short axisdimension of 1.4 cm and a long axis dimension of 4 cm. Mildlyheterogeneous grayscale echogenicity. Diffuse blood flow distributionwith color Doppler. With no left- sided comparison, possible hyperemia dueto inflammation or infection. In the location described, this is probablyan enlarged submandibular gland. On the left side, there is a small hypoechoic nodule adjacent to themandible. This measures about 0.6 x 1.2 cm. No blood flow demonstratedwith Doppler. This is a less specific finding which could represent alymph node. IMPRESSION: Abnormal soft tissue findings in the submandibular regionbilaterally. Higher detail evaluation would require postcontrast neckCT. Referred By: AUSTIN LINARES Interpreted By: Nabil Houser MD, 07/26/2024 5:39 PM us Austin Linares MD ULTRASOUND Final Result * BONE DENSITY/DEXA (12/24/2022 2:31 PM CDT) Anatomical Region Laterality Modality Bone Mammography 12/24/2022 3:14 PM CDT Impressions 12/24/2022 3:15 PM CDT IMPRESSION: WHO Classification: Osteoporosis RECOMMENDATIONS: All patients should ensure an adequate intake of dietary calcium and vitamin D. The NOF recommend adults under the age of 50 need 1000 mg of calcium and 400-800 IU of vitamin D daily. Effective therapy for the prevention and treatment of osteoporosis include bisphosphonates. Follow-up: People with diagnosed cases of osteoporosis or at high risk for fracture should have regular bone mineral density test. For patients eligible for Medicare, routine testing is allowed once every 2 years. Testing frequency can be increased to one year for patients who have rapidly progressing disease, those who are receiving or discontinuing medical therapy to restore bone mass, or have additional risk factors. Referred By: PILO ANDREW Interpreted By: Rik King MD, 12/24/2022 3:14 PM Narrative 12/24/2022 3:15 PM CDT EXAMINATION: BONE DENSITY/DEXA INDICATIONS: other specified disorders of bone density and structure COMPARISON: None TECHNIQUE: DEXA bone mineral density evaluation was performed in the AP projection over the lumbar spine and both hips utilizing standard imaging techniques. ASSESSMENT: The BMD measured at the AP spine L1-L4 is 0.704 g/cm? with a T-score of -3.1. The BMD measured at the left femoral neck is 0.508 g/cm? with a T-score of -3.1. The BMD measured at the left hip is 0.565 g/cm? with a T-score of -3.1. The BMD measured at the right femoral neck is 0.538 g/cm? with a T-score of - 2.8. The BMD measured at the right hip is 0.557 g/cm? with a T-score of -3.2. FRAX 10-year fracture risk: Major Osteoporotic Fracture: 24% Hip Fracture: 13% Procedure Note Rik King MD - 12/24/2022 EXAMINATION: BONE DENSITY/DEXA INDICATIONS: other specified disorders of bone density and structure COMPARISON: None TECHNIQUE: DEXA bone mineral density evaluation was performed in the APprojection over the lumbar spine and both hips utilizing standard imagingtechniques. ASSESSMENT: The BMD measured at the AP spine L1-L4 is 0.704 g/cm? with a T-score of-3.1. The BMD measured at the left femoral neck is 0.508 g/cm? with a T-score of-3.1. The BMD measured at the left hip is 0.565 g/cm? with a T-score of -3.1. The BMD measured at the right femoral neck is 0.538 g/cm? with a T-scoreof -2.8. The BMD measured at the right hip is 0.557 g/cm? with a T-score of -3.2. FRAX 10-year fracture risk: Major Osteoporotic Fracture: 24% Hip Fracture: 13% IMPRESSION: WHO Classification: Osteoporosis RECOMMENDATIONS: All patients should ensure an adequate intake of dietary calcium andvitamin D. The NOF recommend adults under the age of 50 need 1000 mg ofcalcium and 400-800 IU of vitamin D daily. Effective therapy for theprevention and treatment of osteoporosis include bisphosphonates. Follow-up: People with diagnosed cases of osteoporosis or at high risk for fractureshould have regular bone mineral density test. For patients eligible forMedicare, routine testing is allowed once every 2 years. Testing frequencycan be increased to one year for patients who have rapidly progressingdisease, those who are receiving or discontinuing medical therapy torestore bone mass, or have additional risk factors. Referred By: PILO ANDREW Interpreted By: Rik King MD, 12/24/2022 3:14 PM Pilo Andrew MD DEXA Final Result from Last 3 Months or Most Recently Relevant to Health Maintenance Insurance MEDICARE [facility] [place] Care Teams Photostat Operator Helper Relationship Specialty Start Date End Date Austin Linares MD [address] [place] [address] [place] [address] PCP - General FAMILY PRACTICE 11/03/21
== END ==
LOC: ANHLAB 10:49
PROVIDERS: Visit Provider Plastic Surgery
DX: C44.92 Squamous cell carcinoma of skin, unspecified (principal)
CPT/HCPCS: 88305